=== PATIENT | male | born 1950 | race Caucasian/White ===

== ENCOUNTER 2017-01-25 17:22 | Inpatient (IN) | payer OTHER, MEDICARE ==
[~2017-01-25] VITALS: Ht 170.2 cm; Wt 80.3 kg
[~2017-01-25 17:22] MED LIST: ASPIRIN EC81 M1 PO; ATORVASTATIN CA20 M1 PO; LOSARTAN POTAS100 M1 PO; METFORMIN HCL500 M4 PO; METOPROLOL TART50 M1 PO
--- NOTE | 2017-01-25 17:35 | NUR ---
PT STATES HE STATES HE HAD A STOKE ONE AND HE THINKS HE HAD FOOD POISENING YESTERDAY AND HE HASN'T BEEN ABLE TO URINATE SINCE YESTERDAY IN THE AM.
--- NOTE | 2017-01-25 17:44 | NUR ---
PT TO ROOM 16 IN W/C, CALVIN BARRAZA AT BEDSIDE FOR EVAL
[2017-01-25] MEDS ORDERED: ASPIRIN EC325 M2 PO (18:05)
[2017-01-25] MEDS ORDERED: LEVOTHYROXINE25 MCG PO (18:06)
--- NOTE | 2017-01-25 18:06 | ED AMS/SEIZURE/WEAK/DIZZY ---
History of Present Illness General Chief Complaint: Male Genitourinary Problems Stated Complaint: UNABLE URINATE Source: patient Exam Limitations: no limitations Allergies Coded Allergies: Sulfa (Sulfonamide Antibiotics) (Intermediate, SWEATY 01/08/16) adhesive tape (Intermediate, EATS MY SKIN 01/08/16) latex (RASH 01/08/16) Reconcile Medications Aspirin (Ecotrin*) 325 MG TABLET.DR 1 TAB PO DAILY HEART/BLOOD (Reported) Atorvastatin Calcium 20 MG TABLET 0.5 TAB PO DAILY CHOLESTEROL (Reported) Levothyroxine Sodium 25 MCG TABLET 1 TAB PO DAILY THYROID (Reported) Losartan Potassium 100 MG TABLET 1 TAB PO DAILY HEART (Reported) Metformin HCl (Metformin HCl ER) 500 MG TAB.ER.24H 2 TAB PO BID DIABETES ( Reported) Metoprolol Tartrate 50 MG TABLET 1 TAB PO QPM HEART (Reported) Triage Note: PT STATES HE STATES HE HAD A STOKE ONE AND HE THINKS HE HAD FOOD POISENING YESTERDAY AND HE HASN'T BEEN ABLE TO URINATE SINCE YESTERDAY IN THE AM. Triage Nurses Notes Reviewed? yes Onset: Gradual Duration: constant Timing: recent history Injury Environment: home Severity: moderate Severity Numbers: 5 HPI: Patient is a 66-year-old male with a past medical history of remote CVA with right-sided hemiparesis currently not on anticoagulation, hypothyroidism, hypertension, hyperlipidemia and diabetes who presents emergency room stating that yesterday he was in his normal state of health patient does state that he ate EMPANADAS and fruit juice where later on that evening he had multiple EPISODES OF nonbloody nonbilious emesis. Patient woke up today in his normal state of health, states that the emesis and nausea has resolved however patient became concerned after drinking multiple fluids SINCE yesterday and today that he has not urinated. Patient also presents with was concerned of generalized weakness NOTED TODAY however no acute changes of neurological dysfunction is noted by . Denies any fever chills blurred vision facial droop and slurred speech or unilateral weakness compared to baseline where patient is right-sided hemiparesis from previous stroke. Patient denies any CURRENT nausea vomiting abdominal pain. Patient does have reports of loose watery stool production today no blood no melena noted. Patient does admit to having a previous history remotely of BPH. Patient also had a cholecystectomy performed by surgeon Tomas Ch MD approximately 3 years ago at [facility] Denies any chest pain shortness breath cough arm pain jaw pain palpitations Currently denies any abdominal pain Patient is able to tolerate fluids however he is not tried to tolerate solid food today (VICTORINO HERNANDEZ) Vital Signs & Intake/Output Vital Signs & Intake/Output Vital Signs Date Time Temp Pulse Resp B/P B/P Pulse O2 O2 Flow FiO2 Mean Ox Delivery Rate 01/25 1945 99.6 107 16 122/68 94 Room Air 01/25 1735 97.8 120 18 120/75 Past History Travel History Traveled to [facility] past 21 day No Medical History Any Pertinent Medical History? see below for history Neurological: CVA Cardiovascular: hypertension, hyperlipidemia Respiratory: ANTI TRIPSON DEF. Endocrine: diabetes History of MRSA: No History of VRE: No History of CDIFF: No Surgical History Surgical History: cholecystectomy Psychosocial History Who do you live with Spouse Services at Home None What is your primary language Emir[place] Tobacco Use: Quit >30 days ago ETOH Use: denies use Illicit Drug Use: denies illicit drug use Family History Family History, If Any: SISTER FH: leukemia MOTHER FH: hypertension FH: stroke Hx Contributory? No (VICTORINO HERNANDEZ) Review of Systems Review of Systems Constitutional: Reports: see HPI, weakness. EENTM: Reports: no symptoms. Respiratory: Reports: no symptoms. Cardiovascular: Reports: no symptoms. GI: Reports: see HPI, nausea. Genitourinary: Reports: see HPI. Musculoskeletal: Reports: no symptoms. Skin: Reports: no symptoms. Neurological/Psychological: Reports: no symptoms. Hematologic/Endocrine: Reports: no symptoms. Immunologic/Allergic: Reports: no symptoms. All Other Systems: Reviewed and Negative (VICTORINO HERNANDEZ) Physical Exam Physical Exam General Appearance: no apparent distress, alert, awake, comfortable Head: atraumatic Eyes: Bilateral: normal appearance, PERRL, EOMI. Ears, Nose, Throat: normal pharynx, normal ENT inspection, hearing grossly normal Neck: normal inspection, supple Respiratory: normal breath sounds, chest non-tender Cardiovascular: tachycardia Gastrointestinal: normal bowel sounds, soft, no organomegaly, MILD RUQ PAIN Extremities: normal range of motion Skin: intact, normal color, warm/dry Core Measures ACS in differential dx? No CVA/TIA Diagnosis: No NIH Stroke Scale: Total 1 Severe Sepsis Present: Yes BC x2: Yes Lactic Acid x2: Yes IV ABX Broad Spectrum: Yes NS/LR Started: Yes Septic Shock Present: No Bedside Dysphagia Screen Bedside Swallow Eval Done: Yes Result of Evaluation: Pass (CHRISTI SIMPSON,VICTORINO) Progress Differential Diagnosis: arrythmia, anemia, benign positional vertigo, CVA/stroke , dehydration, drug intoxication, encephalitis, electrolyte imbalance, GI bleed, hypoglycemia, hypoxia, intracranial Hem., intracranial mass/tumor, labrynthitis, meningitis, Meniere's disease, migraine JOSEPH, pneumonia, postural hypotension, presyncope, post-traumatic vertigo, sepsis, seizure disorder, subarachnoid Hem., UTI/pyelo, vertebrobasilar insuff, CHOLANGITIS, UTI, SEPSIS Diagnostic Imaging: Viewed by Me: CT Scan. Initial ED EKG: SINUS TACHYCARDIA, 111 BPM Comments: PATIENT: VICTORINO COPELAND PRESENT AGE: 66 PATIENT ACCOUNT NO: [id number] : 52 LOCATION: [facility] ORDERING PHYSICIAN: VICTORINO SIMPSON SERVICE DATE: 01/25/17 EXAM TYPE: CAT - CT HEAD WO IV CONTRAST EXAMINATION: CT HEAD WITHOUT CONTRAST CLINICAL INFORMATION: History of stroke with right-sided hemiparesis. Weakness. COMPARISON: Noncontrast head CT 10/29/2012. TECHNIQUE: Contiguous axial imaging was performed from the skull base to vertex without intravenous administration of contrast. DLP: 794 mGy-cm FINDINGS: Motion abnormality degrades image quality and limits evaluation of the brain parenchyma, notably the middle cranial fossa as well as the posterior fossa. No acute intracranial abnormality is identified. There is no acute intracranial hemorrhage, mass or mass effect or large abnormal extra-axial fluid collections. The density within the dural venous sinuses is within normal limits. The ventricles are normal in size, without hydrocephalus. There are no focal areas of hypoattenuation within a vascular distribution to suggest acute transcortical ischemia. Areas of hypoattenuation within the periventricular and deep cortical white matter are nonspecific but may reflect sequela of mild to moderate chronic microvascular ischemia. Additionally, there are chronic appearing lacunar infarcts within the left mello radiata as well as within the left basal ganglia. There is a focal region of hypoattenuation along the left external capsule measuring 0.6 x 1.9 cm, likely corresponding to a region of remote infarct. The basilar cisterns are patent. No acute calvarial abnormality is identified. Soft tissues appear unremarkable. The imaged paranasal sinuses and mastoid air cells are well aerated. IMPRESSION: Diffuse motion abnormality degrades image quality and slightly limits evaluation of the brain, notably the middle cranial and posterior cranial fossae. There is no acute intracranial abnormality. There are chronic appearing infarcts within the left basal ganglia as well as within the left mello radiata. Areas of hypoattenuation within the deep cortical white matter as well as within the periventricular white matter are nonspecific but may reflect sequela of chronic microvascular ischemia. DICTATED BY: SANTIAGO CRESPO MD DATE/TIME DICTATED:01/25/171832 PATIENT: VICTORINO COPELAND PRESENT AGE: 66 PATIENT ACCOUNT NO: [id number] : 52 LOCATION: [facility] ORDERING PHYSICIAN: VICTORINO SIMPSON SERVICE DATE: 01/25/17 EXAM TYPE: CAT - CT ABD & PELVIS W/O IV CONTRAS EXAMINATION: CT ABDOMEN AND PELVIS WITHOUT CONTRAST CLINICAL INFORMATION: Difficulty urinating. COMPARISON: Chest CT from 01/29/2016. Abdominal MRI from 10/06/2013. TECHNIQUE: Contiguous axial thin section helical images of the abdomen and pelvis were performed without oral or IV contrast. The data set was reformatted in the coronal and sagittal planes and reviewed on an independent workstation. DLP: 390 mGy-cm. FINDINGS: Manifestations of emphysema are identified within both lung bases. There is also bronchiectasis. The visualized portions of the heart are unremarkable. The liver is of normal size and attenuation without focal lesions nor intrahepatic biliary ductal dilation. The patient is status post cholecystectomy. Surgical clips are identified. The spleen, pancreas, adrenal glands are unremarkable. Both kidneys are of normal size and attenuation without hydronephrosis or nephrolithiasis. There is no abdominal free fluid. There is neither mesenteric nor retroperitoneal lymphadenopathy. Normal unopacified loops of small and large bowel are identified. There is no pelvic free fluid. A Da Silva catheter is in place. The urinary bladder is otherwise unremarkable. There is nonspecific fat stranding identified about the rectum without demonstrable wall thickening. There is neither pelvic nor inguinal lymphadenopathy. Bone windows: Neither sclerotic nor lytic bone lesions are identified. IMPRESSION: Neither hydronephrosis nor nephrolithiasis. Nearly empty urinary bladder with a Da Silva catheter in place. Nonspecific mild fat stranding identified within the pelvis about the rectum without wall thickening. Manifestations of emphysema again identified within the visualized lung bases. DICTATED BY: BEHZAD LAWLER MD DATE/TIME DICTATED:01/25/17 / 1833 (VICTORINO HERNANDEZ) Plan of Care: Orders Procedure Date/time Status Consistent Carbohydrate 1 01/26 B Active LACTIC ACID 01/25 2242 Active Misc Message 01/25 2023 Active ED Holding Orders 01/25 2023 Active Admit to inpatient 01/25 2023 Active Vital Signs 01/25 2023 Active Code Status 01/25 2023 Active Patient Data 01/26 2012 Active Admit to inpatient 01/25 2002 Active Add-on Test (ER Only) 01/25 194 Active LACTIC ACID 01/25 1942 Active US-LIMITED ABDOMEN 01/25 1915 Active Add-on Test (ER Only) 01/25 1915 Active BLOOD CULTURE 01/25 190 Active PARTIAL THROMBOPLASTIN TIME 01/25 1817 Complete PROTHROMBIN TIME 01/25 1817 Complete LACTIC ACID 01/25 1815 Complete DIRECT BILIRUBIN 01/25 1815 Complete MISTAKE 01/25 1759 Active Telemetry/Plastic Surgeon 01/25 1759 Active Da Silva, Insertion/Removal/Asses 01/25 1759 Active CULTURE,URINE 01/25 175 Active URINALYSIS 01/25 1759 Complete THYROID STIMULATING HORMONE 01/25 1759 Complete TROPONIN LEVEL 01/25 1759 Complete MAGNESIUM 01/25 1759 Complete FREE T4 01/25 1759 Complete COMPREHENSIVE METABOLIC PANEL 01/25 1759 Complete CBC WITHOUT DIFFERENTIAL 01/25 1759 Complete EKG 01/25 1759 Active Current Medications Sig/Kristen Start time Last Medication Dose Stop Time Status Admin Sodium Chloride 1,000 ML BOLUS ONE 01/25 2015 UNVr (Normal Saline 0.9%) 01/25 2114 Metronidazole 500 MG ONCE ONE 01/25 1945 AC (Flagyl) 01/26 2044 N/A 1 UNIT (No Carrier) Sodium Chloride 1,000 ML BOLUS ONE 01/25 1930 AC (Normal Saline 0.9%) 01/25 2029 Ceftriaxone Sodium 1,000 MG ONCE ONE 01/25 1915 CAN (Rocephin) 01/26 1916 Magnesium Sulfate 1 GM ONCE ONE 01/25 1915 AC 01/25 (Mag Sulfate in D5) 01/25 2314 1929 Dextrose/Water 100 ML (D5W) Laboratory Tests 01/25/17 1950: Lactic Acid Pending 01/25/17 181: PT 15.5 H, INR 1.48 H, APTT 37, Urine Color YEL, Urine Clarity HAZY H, Urine pH 5.5, Ur Specific [place] >= 1.030, Urine Protein 30 H, Urine Ketones 15 H, Urine Nitrite NEG, Urine Bilirubin NEG, Urine Urobilinogen 0.2, Ur Leukocyte Esterase MOD H, Ur Microscopic SEDIMENT EXAMINED, Urine RBC 5-10 H, Urine WBC > 75 H, Ur Epithelial Cells FEW, Urine Bacteria MANY H, Urine Hemoglobin MOD H, Urine Glucose NEG 01/25/171814: Anion Gap 22 H, Estimated GFR 38 L, BUN/Creatinine Ratio 13.9, Glucose 172 H, Lactic Acid 9.0 H, Calcium 9.4, Magnesium 0.8 *L, Total Bilirubin 6.5 H, Direct Bilirubin 1.2 H, AST 43, ALT 46, Alkaline Phosphatase 70, Troponin I < 0.01, Total Protein 7.7, Albumin 4.5, Globulin 3.2, Albumin/Globulin Ratio 1.4, TSH 2.600, Free T4 1.12 01/25/171812: CBC w Diff MAN DIFF ORDERED, RBC 4.91, MCV 91.5, MCH 30.4, RDW 14.4, MPV 10.2, Gran % 92.7 H, Lymphocytes % 3.9 L, Monocytes % 3.3, Eosinophils % 0.1, Basophils % 0 L, Absolute Granulocytes 15.7 H, Segmented Neutrophils 77 H, Band Neutrophils 15 H, Absolute Lymphocytes 0.7 L, Lymphocytes 5 L, Monocytes 3, Absolute Monocytes 0.6, Absolute Eosinophils 0, Absolute Basophils 0, Platelet Estimate VERIFIED BY SMEAR, Normocytic RBCs VERIFIED, Normochromic RBCs VERIFIED, PUBS MCHC 33.2, Fld Total RBCs Counted 100 Microbiology 01/25 1950 BLOOD: Blood Culture - RECD 01/25 1935 BLOOD: Blood Culture - RECD 01/25 1817 URINE ROUT: Urine Culture - RECD NIH STOKE SCALE scored a 1 due to mild right-sided facial droop however this is noted to be at baseline per from previous stroke. At this time there are no acute neurological findings and denies any acute neurological dysfunction. also states that patient does have trouble at times finding words when he speaks due to his previous stroke however again she denies any acute neurological dysfunction. Patient currently is resting comfortably at bedside no apparent distress DA SILVA CATHETER PLACED, 500 CC STAW COLORED URINE PRODUCED, CX PENDING Patient on initial examination had mild right upper quadrant pain however patient was afebrile and normotensive. Urine does show concerns of infection however patient did have a leukocytosis and concerns of lactic acidosis and sepsis patient does have mild concerns of cholangitis however liver function test are unremarkable. Patient currently obtaining an ultrasound of the right upper quadrant however on initial CT scan there is no ductal dilation noted IV fluid resuscitation was ordered. IV Rocephin and Flagyl was administered. Discussed disposition plan with Dr. Last who is aware of admission (VICTORINO HERNANDEZ) Departure Departure Disposition: STILL A PATIENT Condition: Fair Clinical Impression Primary Impression: Sepsis Secondary Impressions: Acute kidney failure, Bandemia, Elevated bilirubin, Hypomagnesemia, Lactic acidemia, UTI (urinary tract infection) Referrals: ТАТЬЯНА BILLINGS MD (PCP/Family) Departure Forms: Customer Survey General Discharge Information Admission Note Spoke With: RACHEL JERONIMO MD Documentation of Exam: Documentation of any treatments & extenuating circumstances including Concerns Regarding Discharge (functional status, medication knowledge or non-compliance, living conditions, etc.) that warrant an admission rather than observation: [ Discussed patient with Dr. JERONIMO who agrees with general medicine admission for concerns of sepsis most likely urinary tract infection etiology. Patient requires IV antibiotics, IV fluid resuscitation, repeat labs, urine culture and blood culture currently pending. Patient also has concerns of cholangitis in which ultrasound of right upper quadrant is pending and patient requires gastroenterology consultation.] (VICTORINO HERNANDEZ) PA/STATE ARCHIVIST Co-Sign Statement Statement: ED Attending supervision documentation- [] I saw and evaluated the patient. I have also reviewed all the pertinent lab results and diagnostic results. I agree with the findings and the plan of care as documented in the PA's/STATE ARCHIVIST's documentation. [X] I have reviewed the ED Record and agree with the PA's/STATE ARCHIVIST's documentation. [] Additions or exceptions (if any) to the PAs/STATE ARCHIVIST's note and plan are summarized below: [] (KRISTEN WILL,LIANA Bell) Critical Care Note Critical Care Note Critical Care Time: 30-74 min (VICTORINO HERNANDEZ)
--- NOTE | 2017-01-25 18:20 | NUR ---
LABS SENT PT TO CT
--- NOTE | 2017-01-25 18:30 | NUR ---
20F DA SILVA PLACED PRIOR TO CT SCAN, 450CC CLEAR ORANGE OUT, URINE TRIO SENT. PT DENIED PAIN/PRESSURE PRIOR AND WITH NO COMPLAINTS POST PLACEMENT. RETURNS FROM CT NOW.
--- NOTE | 2017-01-25 18:43 | CT SCAN REPORT ---
EXAMINATION: CT ABDOMEN AND PELVIS WITHOUT CONTRAST CLINICAL INFORMATION: Difficulty urinating. COMPARISON: Chest CT from 01/29/2016. Abdominal MRI from 10/06/2013. TECHNIQUE: Contiguous axial thin section helical images of the abdomen and pelvis were performed without oral or IV contrast. The data set was reformatted in the coronal and sagittal planes and reviewed on an independent workstation. DLP: 390 mGy-cm. FINDINGS: Manifestations of emphysema are identified within both lung bases. There is also bronchiectasis. The visualized portions of the heart are unremarkable. The liver is of normal size and attenuation without focal lesions nor intrahepatic biliary ductal dilation. The patient is status post cholecystectomy. Surgical clips are identified. The spleen, pancreas, adrenal glands are unremarkable. Both kidneys are of normal size and attenuation without hydronephrosis or nephrolithiasis. There is no abdominal free fluid. There is neither mesenteric nor retroperitoneal lymphadenopathy. Normal unopacified loops of small and large bowel are identified. There is no pelvic free fluid. A Faye catheter is in place. The urinary bladder is otherwise unremarkable. There is nonspecific fat stranding identified about the rectum without demonstrable wall thickening. There is neither pelvic nor inguinal lymphadenopathy. Bone windows: Neither sclerotic nor lytic bone lesions are identified. IMPRESSION: Neither hydronephrosis nor nephrolithiasis. Nearly empty urinary bladder with a Faye catheter in place. Nonspecific mild fat stranding identified within the pelvis about the rectum without wall thickening. Manifestations of emphysema again identified within the visualized lung bases.
--- NOTE | 2017-01-25 18:43 | CT SCAN REPORT ---
EXAMINATION: CT HEAD WITHOUT CONTRAST CLINICAL INFORMATION: History of stroke with right-sided hemiparesis. Weakness. COMPARISON: Noncontrast head CT 10/29/2012. TECHNIQUE: Contiguous axial imaging was performed from the skull base to vertex without intravenous administration of contrast. DLP: 794 mGy-cm FINDINGS: Motion abnormality degrades image quality and limits evaluation of the brain parenchyma, notably the middle cranial fossa as well as the posterior fossa. No acute intracranial abnormality is identified. There is no acute intracranial hemorrhage, mass or mass effect or large abnormal extra-axial fluid collections. The density within the dural venous sinuses is within normal limits. The ventricles are normal in size, without hydrocephalus. There are no focal areas of hypoattenuation within a vascular distribution to suggest acute transcortical ischemia. Areas of hypoattenuation within the periventricular and deep cortical white matter are nonspecific but may reflect sequela of mild to moderate chronic microvascular ischemia. Additionally, there are chronic appearing lacunar infarcts within the left mello radiata as well as within the left basal ganglia. There is a focal region of hypoattenuation along the left external capsule measuring 0.6 x 1.9 cm, likely corresponding to a region of remote infarct. The basilar cisterns are patent. No acute calvarial abnormality is identified. Soft tissues appear unremarkable. The imaged paranasal sinuses and mastoid air cells are well aerated. IMPRESSION: Diffuse motion abnormality degrades image quality and slightly limits evaluation of the brain, notably the middle cranial and posterior cranial fossae. There is no acute intracranial abnormality. There are chronic appearing infarcts within the left basal ganglia as well as within the left mello radiata. Areas of hypoattenuation within the deep cortical white matter as well as within the periventricular white matter are nonspecific but may reflect sequela of chronic microvascular ischemia.
[2017-01-25 18:45] LABS: ABSOLUTE BASOPHIL COUNT 0 /CUMM (0.0-0.2); ABSOLUTE EOSINOPHIL COUNT 0 /CUMM (0.0-0.7); ABSOLUTE GRANULOCYTE CT 15.7 /CUMM (1.4-6.5); ABSOLUTE LYMPH COUNT 0.7 /CUMM (1.2-3.4); ABSOLUTE MONOCYTE COUNT 0.6 /CUMM (0.10-0.60); BASOPHIL % 0 % (0.0-2.0); EOSINOPHIL % 0.1 % (0-5); GRANULOCYTE % 92.7 % (42.2-75.2); HEMATOCRIT 44.9 % (42-52); MEAN CORPUSCULAR HGB 30.4 PG (27.0-31.0); MEAN CORPUSCULAR HGB CONC 33.2 G/DL (33.0-37.0); MEAN CORPUSCULAR VOLUME 91.5 FL (80.0-94.0); MEAN PLATELET VOLUME 10.2 FL (7.4-10.4); PLATELET COUNT 142 /CUMM (130-400); RBC DISTRIBUTION WIDTH 14.4 % (11.5-14.5); RED BLOOD CELL CT 4.91 /CUMM (4.70-6.10)
--- NOTE | 2017-01-25 19:14 | NUR ---
CRITICAL TEST RESULTS [id number] VICTORINO COPELAND 66 J[place] TESTS AND RESULTS: MAGNESIUM 0.8 Results received and read back by: HITESH YOUNG Results received date and time: 01/25/171913 The following provider was notified of the results, and read the results back: VICTORINO SIMPSON Notified date and time: 01/25/17 at 1914
--- NOTE | 2017-01-25 19:35 | NUR ---
1ST SET OF BLOOD CULTURES SENT TO LAB.
[2017-01-25 19:37] LABS: PT 15.5 SEC (9.4-12.5); PTT 37 SEC (25-37)
--- NOTE | 2017-01-25 20:00 | NUR ---
ROCEPHIN INFUSING AFTER BLOOD CX DRAWN. MAG INFUSING WITH 2ND LITER NS, PHARMACY CALLED FOR ROMY PT TO US NOW.
--- NOTE | 2017-01-25 20:02 | NUR ---
BLOOD DRAWN- SECOND SET OF CULTURES AND BENITES TUBE SENT TO LAB.
--- NOTE | 2017-01-25 20:28 | History & Physical ---
BRANDI WILL,[facility] [place] 01/25/172027: General Information and HPI MD Statement: I have seen and personally examined VICTORINO WALDEN and documented this H&P. The patient is a 66 year old M who presented with a patient stated chief complaint of inability to urinate Source of Information: patient, family, old records Exam Limitations: no limitations History of Present Illness: Mr. 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 History is provided by patient and his at bedside. Patient went to a food festival yesterday where he ate two empanadas and drank nonalcoholic passion fruit juice. It was a very hot day and he walked around more than usual. Later that day he had the urge to urinate but could not void. He also had the urge to defecate but could not empty his bowels. He only passed gas and 5-6 episodes of liquid bowel movement. After coming back home, he had four episodes of nonbloody nonbilious emesis shortly after eating a watermelon. He started feeling increasingly weak and lethargic and spiked fevers later that night. He woke up every 20 minutes throughout the night to urinate but his attempts to void were unsuccessful. He has dyspnea on exertion secondary to his lung disease at baseline which is unchanged, but had labored breathing throughout the night. He denies significant pain including chest or abdominal pain, changes in eye or skin color, bloody stool or headache. Patient had prostatitis when he was 37. He does not recall any urologic intervention at that time. Patient had a left CVA in October 2012 resulting in right hemiparesis, which has since improved with therapy but he continues to have residual right-sided weakness. He denies history of MA, stent placement, CHF and carotid artery stenosis. He underwent cardiac catheterization three years ago which showed 50% blockage. Allergies/Medications Allergies: Coded Allergies: Sulfa (Sulfonamide Antibiotics) (Intermediate, SWEATY 01/08/16) adhesive tape (Intermediate, EATS MY SKIN 01/08/16) latex (RASH 01/08/16) Home Med list Aspirin (Ecotrin*) 325 MG TABLET.DR 1 TAB PO DAILY HEART/BLOOD (Reported) Atorvastatin Calcium 20 MG TABLET 0.5 TAB PO DAILY CHOLESTEROL (Reported) Levothyroxine Sodium 25 MCG TABLET 1 TAB PO DAILY THYROID (Reported) Losartan Potassium 100 MG TABLET 1 TAB PO DAILY HEART (Reported) Metformin HCl (Metformin HCl ER) 500 MG TAB.ER.24H 2 TAB PO BID DIABETES ( Reported) Metoprolol Tartrate 50 MG TABLET 1 TAB PO QPM HEART (Reported) Past History Travel History Traveled to [place] past 21 day No Medical History Neurological: CVA Cardiovascular: CAD, hypertension, hyperlipidemia Respiratory: spontaneous pneumothorax, lung disease related to alpha-1 antitrypsin deficiency Renal: prostatitis Endocrine: diabetes, hypothyroidism Other Medical Hx: alpha-1 antitrypsin deficiency History of MRSA: No History of VRE: No History of CDIFF: No Surgical History Surgical History: cholecystectomy Past Family/Social History Family History Relations & Conditions if any SISTER FH: leukemia MOTHER FH: CVA (cerebrovascular accident) FH: hypertension BROTHER FH: alpha 1 antitrypsin deficiency FH: COPD (chronic obstructive pulmonary disease) BROTHER FH: CAD (coronary artery disease) FH: MA (myocardial infarction) FATHER, ; Cause: CVA (cerebral vascular accident). FH: CVA (cerebrovascular accident) Psychosocial History Where do you live? Home Who Do You Live With? spouse Services at Home: None Primary Language: Nigerien Smoking Status: Former Smoker (Quit in 2012, 40 Pack-Years) ETOH Use: denies use Illicit Drug Use: denies illicit drug use Functional Ability ADLs Independent: dressing, eating, toileting, bathing. Ambulation: independent IADLs Independent: shopping, housework, finances, food prep, telephone, transportation , medication admin. 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 EENTM: Reports: no symptoms. Cardiovascular: Denies: chest pain. Respiratory: Reports: short of breath (baseline). Denies: cough. GI: Reports: constipation, nausea, vomiting. Denies: abdominal pain, bloody stool. Genitourinary: Reports: see HPI (inability to urinate). Musculoskeletal: Reports: no symptoms. Skin: Reports: no symptoms. Denies: jaundice. Neurological/Psychological: Reports: pre-existing deficit (right-sided weakness 2/2 CVA). Denies: headache. Hematologic/Endocrine: Reports: no symptoms. Immunologic/Allergic: Reports: no symptoms. All Other Systems: Reviewed and Negative Exam & Diagnostic Data Last 24 Hrs of Vital Signs/I&O Vital Signs Date Time Temp Pulse Resp B/P B/P Pulse O2 O2 Flow FiO2 Mean Ox Delivery Rate 01/26 0104 99.1 86 22 110/72 93 Room Air 01/26 0003 99.3 85 18 113/55 94 Room Air 01/25 2239 99.7 107 18 132/76 01/25 2238 99.7 107 18 132/76 95 Room Air 01/25 2132 99.8 109 20 132/65 95 Room Air 01/25 2101 94 01/25 1945 99.6 107 16 122/68 94 Room Air 01/25 1735 97.8 120 18 120/75 Intake & Output 01/26 0800 01/26 0000 01/25 1600 Intake Total 3500 Output Total 950 Balance 2550 Intake, IV 3500 Output, Urine 950 Patient 77.111 kg Weight Weight Reported by Patient Measurement Method Physical Exam General Appearance Alert, Oriented X3, No Acute Distress Skin No Rashes Skin Temp/Moisture Exam: Warm/Dry (Except Feet (Chronic Per Pt)) Sepsis Skin Exam (color): Normal for Ethnicity HEENT Atraumatic, Mucous Membr. moist/pink Neck Supple Lymphatic No Lymphadenopathy Cardiovascular Regular Rate, Normal S1, Normal S2 Lungs Clear to Auscultation Abdomen Soft, No Tenderness, Positive Bowel Sounds, Negative Fragoso's Sign Extremities No Clubbing, No Cyanosis, No Edema Vascular Normal Pulses Sepsis Peripheral Pulse Location: Dorsalis Pedis Sepsis Peripheral Pulse Exam: Normal Sepsis Cap Refill Exam: <2 Sec Rectal Empty Rectal Vault Last 24 Hrs of Labs/Parminder: Laboratory Tests 01/26/17 0218: Lactic Acid Cancelled 01/25/172232: Magnesium 1.1 L 01/25/172232: Lactic Acid 6.9 H 01/25/17 1950: Lactic Acid 8.0 H 01/25/17 1817: PT 15.5 H, INR 1.48 H, APTT 37, Urine Color YEL, Urine Clarity HAZY H, Urine pH 5.5, Ur Specific Penn >= 1.030, Urine Protein 30 H, Urine Ketones 15 H, Urine Nitrite NEG, Urine Bilirubin NEG, Urine Urobilinogen 0.2, Ur Leukocyte Esterase MOD H, Ur Microscopic SEDIMENT EXAMINED, Urine RBC 5-10 H, Urine WBC > 75 H, Ur Epithelial Cells FEW, Urine Bacteria MANY H, Urine Hemoglobin MOD H, Urine Glucose NEG 01/25/171814: Anion Gap 22 H, Estimated GFR 38 L, BUN/Creatinine Ratio 13.9, Glucose 172 H, Lactic Acid 9.0 H, Calcium 9.4, Magnesium 0.8 *L, Total Bilirubin 6.5 H, Direct Bilirubin 1.2 H, AST 43, ALT 46, Alkaline Phosphatase 70, Creatine Kinase 93, Troponin I < 0.01, Total Protein 7.7, Albumin 4.5, Globulin 3.2, Albumin/Globulin Ratio 1.4, TSH 2.600, Free T4 1.12 01/25/171812: CBC w Diff MAN DIFF ORDERED, RBC 4.91, MCV 91.5, MCH 30.4, RDW 14.4, MPV 10.2, Gran % 92.7 H, Lymphocytes % 3.9 L, Monocytes % 3.3, Eosinophils % 0.1, Basophils % 0 L, Absolute Granulocytes 15.7 H, Segmented Neutrophils 77 H, Band Neutrophils 15 H, Absolute Lymphocytes 0.7 L, Lymphocytes 5 L, Monocytes 3, Absolute Monocytes 0.6, Absolute Eosinophils 0, Absolute Basophils 0, Platelet Estimate VERIFIED BY SMEAR, Normocytic RBCs VERIFIED, Normochromic RBCs VERIFIED, PUBS MCHC 33.2, Fld Total RBCs Counted 100 Microbiology 01/25 1950 BLOOD: Blood Culture - RECD 01/25 1935 BLOOD: Blood Culture - RECD 01/25 1817 URINE ROUT: Urine Culture - RECD Diagnostic Data EKG Results Sinus tachycardia HR [address]Tc [address] HEAD W/O IV CONTRAST: Diffuse motion abnormality degrades image quality and slightly limits evaluation of the brain, notably the middle cranial and posterior cranial fossae. There is no acute intracranial abnormality. There are chronic appearing infarcts within the left basal ganglia as well as within the left mello radiata. Areas of hypoattenuation within the deep cortical white matter as well as within the periventricular white matter are nonspecific but may reflect sequela of chronic microvascular ischemia. CT ABDOMEN/PELVIS W/O IV CONTRAST: Neither hydronephrosis nor nephrolithiasis. Nearly empty urinary bladder with a Faye catheter in place. Nonspecific mild fat stranding identified within the pelvis about the rectum without wall thickening. Manifestations of emphysema again identified within the visualized lung bases. RUQ US: Liver of diffuse heterogeneous echogenicity without focal lesions. The appearance is nonspecific, but consistent with fatty infiltration. Neither cholelithiasis nor cholecystitis. Assessment/Plan Assessment: Mr. 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 #Severe sepsis: Met SIRS criteria for sepsis on admission with tachycardia and leukocytosis (WBC count 17 with 15% bands). Although afebrile here, had subjective fevers at home. Qualifies for severe sepsis in the setting of ERIKA and lactic acid of 9.0 on admission. Hemodynamically stable with normal mental status. Most likely source is UTI given presenting symptom of urinary retention and urinalysis positive for leukocyte esterase. Although patient had worsening shortness of breath last night, this is likely secondary to sepsis, with no other evidence such as cough to suggest pneumonia. Although bilirubin is elevated in this patient who is s/p cholecystectomy, biliary source is unlikely given RUQ US with no evidence of cholelithiasis or cholecystitis, negative Fragoso's sign and in the absence of RUQ pain or jaundice. S/p 1 dose of ceftriaxone and Flagyl in the ED and total of 3.5 L bolus of normal saline. * Admit to General Medicine. * Continue gentle hydration with NS @ 150 cc/hr. * Continue ceftriaxone 1 g IV daily. * Check CXR PA/lateral to rule out pneumonia. * Check BCx and UCx. #Hyperbilirubinemia: Total bilirubin 6.5 on admission. Mostly indirect, with direct bilirubin of 1.2. AST/ALT and alkaline phosphatase WNL. RUQ US with diffuse heterogeneous echogenicity without focal lesions, nonspecific in appearance but consistent with fatty infiltration. Likely secondary to suspected liver disease related to alpha-1 antitrypsin deficiency. INR elevated at 1.48 likely secondary to early cirrhosis. * GI consulted for further evaluation and management. #Lactic acid: Lactic acid 9 on admission. Most likely secondary to hypoperfusion in the setting of sepsis and dehydration, and potentially exacerbated by his suspected alpha-1 antitrypsin related liver disease which makes it hard to clear lactic acid. * Trend lactic acid. * Continue gentle hydration with NS @ 150 cc/hr. #ERIKA: Cr 1.8 on admission, increased from baseline of 1.1-1.2. Likely prerenal vs. ATN secondary to sepsis and dehydration from nausea/vomiting. * Avoid nephrotoxic agents. * Gentle hydration with NS @ 150 cc/hr. * Repeat BMP in the AM. * Check CPK and repeat in the AM to evaluate for rhabdomyolysis as patient physically exerted himself prior to onset of symptoms. #Hypomagnesemia: Mg 0.8 on admission. Likely secondary to nausea and vomiting. * 1 mg of IV magnesium and 800 mg of oral magnesium administered. * Continue to monitor Mg frequently and replete as needed. #Non-insulin dependent T2DM: Takes metformin 1000 mg PO BID. * Hold oral hypoglycemic agents while inpatient. * Accu-checks and low dose sliding scale Novolog TIDAC. #HTN: Takes metoprolol 50 mg PO QPM and losartan 100 mg PO daily. * Continue [id number] metoprolol. * Hold losartan. Resume in the AM if BP is stable and creatinine improves. #Hypothyroidism: * Continue [id number] levothyroxine 0.025 mg PO daily AC. #Hyperlipidemia: * Continue uxwvu-om-fejphbbbl aspirin 81 mg PO daily and atorvastatin 10 mg PO daily. Diet: Consistent Carbohydrate 3 DVT PPx: HSQ and ALP CODE: FULL As Ranked By This Provider Problem List: 1. Severe sepsis 2. Hypothyroidism 3. Non-insulin dependent type 2 diabetes mellitus 4. Hypomagnesemia 5. UTI (urinary tract infection) 6. Lactic acidosis 7. High anion gap metabolic acidosis 8. HTN (hypertension) 9. Acute kidney failure 10. Uftmf-1-uqhwpadgwac deficiency Core Measures/Miscellaneous Acute Coronary Syndrome ACS Diagnosis: No Cerebrovascular Accident CVA/TIA Diagnosis: No Congestive Heart Failure CHF Diagnosis: No VTE (View Protocol) VTE Risk Factors: Acute medical illness, Age > 40 [facility] d/t: No contraindications No VTE Pharm Prophylaxis d/t: No contraindications VTE Diagnosis: No VTE Type: NONE VTE Confirmed by (Test): NONE Sepsis (View Protocol) Severe Sepsis Present: Yes BC x2: Yes Lactic Acid x2: Yes IV ABX Broad Spectrum: Yes NS/LR Started: Yes Septic Shock Septic Shock Present: No Miscellaneous Documentation Attending Case Discussed With: RACHEL JERONIMO MD Primary Care Physician: ТАТЬЯНА BILLINGS MD Patient sees these Specialists Unknown Level of Patient Care: General Medicine VICTORINO MOORE 01/25/177: Resident Review Statement Resident Statement: examined this patient, discussed with internal review and audit compliance, agreed with internal review and audit compliance, discussed with family, reviewed images, amended to note Other Findings: This is a 66 years old very plesant gentleman with past medical history of diabetes mellitus, hypertension, hyperlipidemia, alpha-1 antitrypsin deficiency who is presenting with history of painful urination and inability to pass stool for about a day. The patient reports that he was well went out and ate on a food truck after which he observed that he could not open his bowels or pass urine he however continued to pass gas. The patient reports history of fever, nausea and vomiting multiple times about 5 and decreased oral intake which made him to feel very weak. On arrival the patient was afebrile 97.8 tachycardic at 120 bpm respiration of 18 blood pressure 120/75 and saturating 94% on room air Physical examination: Patient not in acute distress a late and oriented to time place and person HEENT: White mucous membranes, jaundice, no distended neck vessels Abdomen: Normal contour moving with respiration no organomegaly no tenderness elicited negative Fragoso's sign Chest: Clear lungs bilaterally Extremities: No cyanosis edema or clubbing Rectal: Normal and no sphincter, normal size prostate no tenderness elicited rectal vault is empty Labs: Leukocytosis 17,000, creatinine 1.8 baseline 1.1, UA positive for leukocyte esterase and WBC 75, deranged liver function total bilirubin of 6.5 direct 1.2 with hypomagnesemia 0.8 Assessment and plan 66 years old gentleman with alpha-1 antitrypsin deficiency diabetes mellitus hypertension and hyperlipidemia presenting with acute presentation of inability to pass urine or stool dysuria fever nausea and vomiting found to have significant leukocytosis lactic acidosis and acute kidney injury picture Problem list Urinary tract infection Hypomagnesemia Acute kidney injury Lactic acidosis Anion gap metabolic acidosis Admitted the patient's to general medicine floor She and has received fluid boluses 3.5 L and will maintain him on normal saline at 150 mL/h Received IV magnesium 1 g, continue with magnesium supplementation magnesium oxide 800 mg Continue to trend lactic acidosis Follow-up blood culture and urine culture results Hold metformin and keep the patient on insulin sliding scale Accu-Cheks before every meal Heparin for DVT prophylaxis Patient is full code Pain pathway RACHEL JERONIMO 01/25/17 2347: Attending MD Review Statement Attending Statement Attending MD Statement: examined this patient, discuss w/resident/PA/PIECE DYE WORKER, agreed w/resident/PA/PIECE DYE WORKER, discussed with family, reviewed EMR data (avail), reviewed images, amended to note Attending Assessment/Plan: CC: unable to urinate, loss of balance PMH: CVA with residual R sided weakness, HTN, HLD, hypothyroidism, DM, Alpha 1 antitrypsin deficiency with secondary lung disease, CAD Patient came to ER with vague complaints. He went to [place] festival yesterday and had 2 EMPANADAS and passion fruit juice. He was walking around, it was hot, and walked more than usual. Then he developed a weird sensation where he had to Urinate but he could not and it was painful. He also had urge for BM but could not go except passing gas. Later on even after going home the same episode repeated the whole night, it was very uncomfortable to urinate without any urine output and he was waking up every 20 mins. He also had 4 to 5 nonbloody vomiting at home after eating watermelon. Then he felt extremely lethargic and developed fever. Patient was still uncomfortable the whole day today and was weak to the extend that he almost fell down and his had to support him. No presyncopal or syncope. He also notices mild respiratory discomfort though out the night but denied and chest pain, abdo pain, headache, blood in stool. He did not notice any change in urine color and sclera discoloration. Patient does not regularly follow up for AAT. Last cardiac cath 3 year back with 50% block. He endorses BAINS secondary to lung disease but denied exertional chest pain or lower extremity edema. Vitals: T max 99.8, pulse 120 upon arrival, R, blood pressure, O2 saturation in acceptable range. On exam: A O 3, cooperative, no acute distress, neck supple, JVD normal, no lymphadenopathy, mucosa dry, residual right-sided weakness, with facial drooping , no new focal neurological deficit, no dependent edema, no obvious skin rashes or inflammation CVS: S1-S2, RRR. RS: Clear to auscultate bilaterally. Abdomen: Soft, NT, ND, bowel sounds present, Fragoso's sign negative. Feet are cold to touch but perfusion and pulses normal. Labs: WBC 7.0, neutrophils 92%, band 15, sodium 133, potassium 4.0, chloride 95, bicarbonate 16, 9 22, BUN 25, creatinine 1.8, glucose 172, lactate 9.0, calcium 9.4, magnesium 0.8, total bilirubin 6.5, direct bilirubin 1.2, AST 43, ALT 46, alkaline phosphatase 70, troponin less than 0.01, INR 1.48 UA positive for ketone, moderate leukocyte esterase, WBC more than 75 CT head: Diffuse motion abnormality degrades image quality and slightly limits evaluation of the brain, notably the middle cranial and posterior cranial fossae. There is no acute intracranial abnormality. There are chronic appearing infarcts within the left basal ganglia as well as within the left mello radiata. Areas of hypoattenuation within the deep cortical white matter as well as within the periventricular white matter are nonspecific but may reflect sequela of chronic microvascular ischemia. CT abdomen and pelvis without IV contrast: Neither hydronephrosis nor nephrolithiasis. Nearly empty urinary bladder with a Faye catheter in place. Nonspecific mild fat stranding identified within the pelvis about the rectum without wall thickening. Manifestations of emphysema again identified within the visualized lung bases. Ultrasound abdomen: Liver of diffuse heterogeneous echogenicity without focal lesions. The appearance is nonspecific, but consistent with fatty infiltration. Neither cholelithiasis nor cholecystitis. A and P 66-year-old male with past medical history significant for CVA, hypertension, diabetes, alpha-1 antitrypsin deficiency with secondary lung bases presented to ER for a 1 day history of difficulty urination, pain while urination, no urine output for 1 day. Patient walked outside in hot whether and had food add foot fair. He had 4-5 episodes of vomiting which were nonbloody. He also noticed some worsening of respiratory symptoms overnight related to his underlying lung disease plus denies any chest pain or cough. He was tachycardic and mild respiratory distress when he came in but improved with hydration. His examination is unremarkable, found to have leukocytosis with bands, anion gap acidosis and lactic acidosis, ketones in urine. UA positive for leukocyte esterase. He put out 400 mL after Faye catheter placement in the ER. It appears that he has sepsis secondary to UTI, no other source of infection identified. Patient had elevated total bilirubin with prominent indirect bilirubin and normal transaminases and alkaline phosphatase. Fragoso's sign is negative. Abdominal imaging is unremarkable. Patient does not appear to have cholangitis as a source of infection. Pneumonia should be ruled out with chest x-ray. Bilirubin probably secondary to alpha-1 antitrypsin deficiency related liver disease, patient does have fatty changes in liver on abdominal imaging, ? Early cirrhosis (mildly elevated INR) , Patient had significant lactic acidosis, lactic acidosis appears secondary to infection in setting of probable liver disease. He has significant hypomagnesemia. CT imaging also mentions nonspecific fat stranding in pelvis, but rectal examination was unremarkable. Patient states that he could not have bowel movements since yesterday but the rectum was empty on rectal exam + Sepsis secondary to UTI + Anion gap metabolic acidosis secondary to Lactic acidosis + Acute kidney injury + Hyperbilirubinemia + Suspected ATT related liver disease + Hypomagnesemia - Admit to general medicine - Continue hydration, initial fluid resuscitation at least 3 L followed by 150 mL per hour as maintenance - Trend lactate - Urine culture, blood culture - Chest x-ray PA lateral view - Replace magnesium - Continue ceftriaxone - GI consult in a.m. for isolated hyperbilirubinemia in setting of ATT - Check CPK level today and tomorrow - Hold metformin, continue sliding scale insulin, resume losartan from tomorrow if blood pressure is stable and kidney function improved, continue aspirin and atorvastatin, levothyroxine and metoprolol - DVT prophylaxis with heparin - Adequate pain control - DNR/DNI
--- NOTE | 2017-01-25 20:35 | NUR ---
CRITICAL TEST RESULTS [id number] VICTORINO COPELAND 66 M TESTS AND RESULTS: 8 Results received and read back by: MICHAEL WESTON Results received date and time: 01/25/172034 The following provider was notified of the results, and read the results back: CALVIN BARRAZA Notified date and time: 01/25/17 at 2034
--- NOTE | 2017-01-25 20:37 | NUR ---
CRITICAL TEST RESULTS [id number] VICTORINO COPELAND 66 M TESTS AND RESULTS: LACTIC 9 Results received and read back by: MICHAEL WESTON Results received date and time: 01/25/172003 The following provider was notified of the results, and read the results back: CALVIN BARRAZA Notified date and time: 01/25/17 at 2004
--- NOTE | 2017-01-25 20:41 | ULTRASOUND REPORT ---
EXAMINATION: ABDOMINAL ULTRASOUND LIMITED CLINICAL INFORMATION: Elevated bilirubin. COMPARISON: Same day abdominal and pelvic CT. TECHNIQUE: Real-time imaging of the right upper quadrant abdominal viscera. FINDINGS: PANCREAS: The visualized pancreatic head and body are normal in appearance. The remainder of the pancreas is obscured from visualization by the overlying bowel gas. LIVER: The liver is of normal size and diffuse heterogeneous echogenicity without focal lesions nor intrahepatic biliary ductal dilation. GALLBLADDER: The patient is status post cholecystectomy. COMMON BILE DUCT: Normal in caliber measuring 0.4 cm in diameter. RIGHT KIDNEY: Normal. No hydronephrosis. No renal calculi or focal parenchymal lesions. The kidney measures 11.1 cm in maximum dimension. FREE FLUID: None. IMPRESSION: Liver of diffuse heterogeneous echogenicity without focal lesions. The appearance is nonspecific, but consistent with fatty infiltration. Neither cholelithiasis nor cholecystitis.
--- NOTE | 2017-01-25 21:00 | NUR ---
DR LOO AT BEDSIDE FOR ADMISSION. PT WITH NO COMPLAINTS, DA SILVA DRAINING WELL, PT ALERT AND AFEBRILE. 3RD LITER NS INFUSING WITH FLAGYL.
--- NOTE | 2017-01-25 21:21 | NUR ---
PT GOING TO ROOM [id number]
--- NOTE | 2017-01-25 22:35 | NUR ---
BLOOD DRAWN AND SENT TO LAB. DELMIS ADKINS.
--- NOTE | 2017-01-25 23:17 | NUR ---
CALL TO 2NB, EMILIE HER UPDATED ON PT'S CONDITION AND REPEAT LABS.
--- NOTE | 2017-01-25 23:40 | NUR ---
PT TO AND FROM XRAY
--- NOTE | 2017-01-25 23:49 | Admission Certification ---
Admission Certification Certification Statement - As attending physician, I certify that at the time of - admission, based on clinical presentation, severity of - symptoms, need for further diagnostic testing and - therapeutic interventions, and risk of adverse outcomes - without in-hospital treatment, in my clinical assessment, - this patient requires an acute hospital stay for a minimum - of two nights or longer. I have also considered psychsocial - factors such as support system, advanced age, financial - issues, cognitive issues, and failed out-patient treatments, - past re-admission history, safety of patient, and lack of - compliance as applicable. Specific rationale supporting this admission is: sepsis secondary to UTI
--- NOTE | 2017-01-26 00:19 | NUR ---
EMILIE HER UPDATED WITH NEW VITALS PT RESTING ON STRETCHER.
[2017-01-26 01:04] VITALS: BP 110/72
--- NOTE | 2017-01-26 02:55 | NUR ---
NURSING NOTE: LATE ENTRY: PT ARRIVED TO FLOOR VIA STRETCHER FROM ED @ 0130. PT IS ALERT AND ORIENTED, DROWSY BUT AROUSABLE W/SPEECH AND TOUCH. VSS. PT DENIES SYMPTOMS. PT HAD PRIOR STROKE IN 2012. R SIDED WEAKNESS NOTED. PT IS [place] AND HAS BL HEARING AIDS BUT DID NOT BRING THEM TO HOSPITAL. PT HAS DA SILVA PLACED ON 01/25/17 DRAINING CLEAR, ORANGE IN COLOR. PT IS RECEIVING IV FLUIDS @ 150 ML/HR. MG 1.1, LACTIC ACID 6.5. PTS SKIN INTACT, NO BREAKDOWN NOTED. PER PTS PT IS PASSING GAS AND HAD A SMALL BOWEL MOVEMENT YESTERDAY BUT STATES HE FEELS THE URGE TO DEFECATE BUT IS HAVING DIFFICULTY. MG LEVEL AND LACTIC ACID REDRAWN. AWAITING RESULTS FROM LAB. NO FURTHER ORDERS FROM . PT SHOWN HOW TO USE CALL LIGHT SYSTEM. INFORMATION PACKET GIVEN. WILL CONTINUE TO MONITOR.
--- NOTE | 2017-01-26 03:26 | NUR ---
NURSING NOTE: LATE ENTRY. PT ARRIVED TO FLOOR AT 0130 FROM ED BY STRETCHER. PT IS A&OX3, DROWSY BUT AROUSABLE TO SPEECH AND TOUCH. PT IS ON ROOM AIR, SATS 93%, RR 22. PTS SKIN PALE. PT DENIES SOB. OTHER VSS. PT HAS R SIDED WEAKNESS FROM A PRIOR STROKE IN 2012. FACIAL DROOP ABSENT, SPEECH CLEAR BUT CAN BE GARBLED AT TIMES. PT AMBULATES INDEPENDENTLY AT HOME AND DOES NOT USE A WALKER/CANE, GAIT SLOW, WEAK BUT STEADY. PTS SKIN INTACT. NO BREAKDOWN NOTED. PT HAS DA SILVA THAT WAS PLACED 01/25/17 @ 1759 DRAINING CLEAR, ORANGE IN COLOR. PT IS RECEIVING IV FLUIDS @ 150 ML/HR. MAGNESIUM LEVEL AND LACTIC ACID WERE DRAWN AGAIN. LAST MAG 1.1 AND LAST LACTIC 6.9. PT DENIES PAIN. NO FURTHER ORDERS FROM MD AT THIS TIME. PT SHOWN HOW TO USE CALL LIGHT SYSTEM. FAMILY PRESENT AT BEDSIDE. WILL CONTINUE TO MONITOR.
[2017-01-26 05:54] LABS: ABSOLUTE BASOPHIL COUNT 0 /CUMM (0.0-0.2); ABSOLUTE EOSINOPHIL COUNT 0 /CUMM (0.0-0.7); ABSOLUTE GRANULOCYTE CT 11.6 /CUMM (1.4-6.5); ABSOLUTE LYMPH COUNT 0.7 /CUMM (1.2-3.4); ABSOLUTE MONOCYTE COUNT 0.9 /CUMM (0.10-0.60); BASOPHIL % 0.1 % (0.0-2.0); EOSINOPHIL % 0 % (0-5); MEAN CORPUSCULAR HGB 30.5 PG (27.0-31.0); MEAN CORPUSCULAR HGB CONC 33.9 G/DL (33.0-37.0); MEAN CORPUSCULAR VOLUME 89.9 FL (80.0-94.0); MEAN PLATELET VOLUME 9.8 FL (7.4-10.4); PLATELET COUNT 97 /CUMM (130-400); RBC DISTRIBUTION WIDTH 14.2 % (11.5-14.5); RED BLOOD CELL CT 3.86 /CUMM (4.70-6.10); WHITE BLOOD CELL COUNT 13.2 /CUMM (4.8-10.8)
[2017-01-26 06:06] LABS: HEMATOCRIT 34.8 % (42-52)
--- NOTE | 2017-01-26 06:58 | PN- Housestaff ---
MOISES WILL,FRANK 01/26/17 0657: Subjective Follow-up For: Urinary and fecal hesitancy/retention Prostatitis/UTI Subjective: Patient seen and examined this AM. He has clarified symptoms on initial presentation. According to Quentin, he noticed first this perineal discomfort/ lower abdominal discomfort followed by urinary hesitancy then fecal hesitancy/ inability to pass urine/stool. These are the symptoms that prompting him to present for evaluation. Patient had prostatic exam today and noted tenderness on palpation of the prostate, concerning for prostatitis. Thus, urology consult with Dr. Bam MD was placed. GI consult still pending for hyperbilirubinemia in the setting of alpha-1 antitrypsin deficiency. Review of Systems Constitutional: Denies: chills, fever, malaise. EENTM: Denies: blurred vision, visual changes, hearing changes, nasal congestion. Cardiovascular: Denies: chest pain, palpitations. Respiratory: Denies: cough, short of breath. Gastrointestinal: Reports: see HPI. Denies: nausea, vomiting. Genitourinary: Reports: hesitation, pain (Perineal). Musculoskeletal: Denies: back pain, joint pain. Skin: Denies: lesions, rash. Neurological/Psychological: Denies: confusion, headache, numbness. Hematologic/Endocrine: Denies: bruising, bleeding. Immunologic/Allergic: Denies: splenectomy. Objective Last 24 Hrs of Vital Signs/I&O Vital Signs Date Time Temp Pulse Resp B/P B/P Pulse O2 O2 Flow FiO2 Mean Ox Delivery Rate 01/26 0700 98.7 81 22 108/64 91 Room Air 01/26 0158 93 Room Air 01/26 0104 99.1 86 22 110/72 93 Room Air 01/26 0003 99.3 85 18 113/55 94 Room Air 01/25 2239 99.7 107 18 132/76 01/25 2238 99.7 107 18 132/76 95 Room Air 01/25 2132 99.8 109 20 132/65 95 Room Air 01/25 2101 94 01/25 1945 99.6 107 16 122/68 94 Room Air 01/25 1735 97.8 120 18 120/75 Intake & Output 01/26 1600 01/26 0800 01/26 0000 Intake Total 870 3500 Output Total 400 950 Balance 470 2550 Intake, IV 750 3500 Intake, Oral 120 Output, Urine 400 950 Patient 178 lb 170 lb Weight Weight Reported by Patient Reported by Patient Measurement Method Physical Exam General Appearance: Alert, Oriented X3, Cooperative, No Acute Distress Skin: No Rashes, No Significant Lesion Skin Temp/Moisture Exam: Warm/Dry HEENT: Atraumatic, PERRLA, EOMI, Mucous Membr. moist/pink Neck: Supple, No JVD, No thryomegaly Lymphatic: Cervical nl Cardiovascular: Regular Rate, Normal S1, Normal S2, No Murmurs Lungs: Clear to Auscultation, Normal Air Movement Abdomen: Normal Bowel Sounds, Soft, No Tenderness, No Masses Neurological: Normal Speech, Normal Tone Extremities: No Clubbing, No Cyanosis, No Edema, No Tenderness/Swelling Vascular: Pulses Symmetrical Rectal + prostatic tenderness on prostate exam Current Medications: Current Medications Sig/Kristen Start time Last Medication Dose Route Stop Time Status Admin Acetaminophen 650 MG Q6P PRN 01/26 0930 AC PO Aspirin Buffered 325 MG DAILY 01/26 1000 AC 01/26 PO 1037 Atorvastatin Calcium 10 MG 1700 01/26 1700 AC PO Ceftriaxone Sodium 1,000 MG DAILY 01/26 1000 AC 01/26 IV 1037 Ceftriaxone Sodium 0 .STK-MED ONE 01/25 1958 DC .ROUTE Ceftriaxone Sodium 1,000 MG ONCE ONE 01/25 1930 DC 01/25 IV 01/25 Ceftriaxone Sodium 1,000 MG ONCE ONE 01/25 191 CAN IV 01/25 191 Doxazosin Mesylate 1 MG DAILY 01/26 1000 AC 01/26 PO 1037 Finasteride 5 MG DAILY 01/26 1040 AC PO Heparin Sodium 0 .STK-MED ONE 01/25 223 DC (Porcine) .ROUTE Heparin Sodium 5,000 UNIT Q8 01/25 2200 AC 01/26 (Porcine) SC 0500 Ibuprofen 600 MG Q6P PRN 01/26 0930 AC PO Insulin Aspart 0 TIDAC 01/26 0800 AC SC Levothyroxine Sodium 0.025 MG DAILY AC 01/26 0700 AC 01/26 PO 0540 Losartan Potassium 100 MG DAILY 01/26 1000 CAN PO Magnesium Oxide 400 MG ONE ONE 01/26 0415 DC 01/26 PO 01/26 0416 0501 Magnesium Oxide 800 MG ONE ONE 01/25 2200 DC 01/25 PO 01/25 220 2239 Magnesium Sulfate 1 GM Q2H 01/26 0630 DC 01/26 Dextrose/Water 100 ML IV 01/26 1029 0800 Magnesium Sulfate 1 GM ONCE ONE 01/25 1915 [place] 01/25 Dextrose/Water 100 ML IV 01/25 2314 1929 Metoprolol Tartrate 50 MG QPM 01/25 2200 AC 01/25 PO 2239 Metronidazole 500 MG ONCE ONE 01/25 1945 DC 01/25 N/A 1 UNIT IV 01/26 2044 203 Morphine Sulfate 1 MG Q6-PRN PRN 01/26 0930 IV Sodium Chloride 1,000 ML Q8H 01/26 0815 AC 01/26 IV 1037 Sodium Chloride 1,000 ML SEE RATE 01/25 2200 [place] 01/25 IV 2316 Sodium Chloride 1,000 ML BOLUS ONE 01/25 2015 [place] 01/25 IV 01/25 Sodium Chloride 1,000 ML BOLUS ONE 01/25 1930 [place] 01/25 IV 01/25 Sodium Chloride 1,000 ML BOLUS ONE 01/25 1915 [place] 01/25 IV 01/25 2014 195 Sodium Chloride 500 ML BOLUS ONE 01/25 1800 [place] 01/25 IV 01/25 1859 1828 Last 24 Hrs of Lab/Parminder Results Last 24 Hrs of Labs/Mics: Laboratory Tests 01/26/17 0535: Lactic Acid 4.3 H 01/26/17 0535: Anion Gap 14, Estimated GFR > 60, BUN/Creatinine Ratio 18.3, Magnesium 1.1 L, Creatine Kinase 93, CBC w Diff MAN DIFF ORDERED, RBC 3.86 L, MCV 89.9, MCH 30.5 , RDW 14.2, MPV 9.8, Gran % 88.0 H, Lymphocytes % 5.5 L, Monocytes % 6.4, Eosinophils % 0, Basophils % 0.1, Absolute Granulocytes 11.6 H, Segmented Neutrophils 84 H, Band Neutrophils 6 H, Absolute Lymphocytes 0.7 L, Lymphocytes 4 L, Monocytes 6, Absolute Monocytes 0.9 H, Absolute Eosinophils 0 , Absolute Basophils 0, Platelet Estimate DECREASED, Polychromasia 1+, Poikilocytosis 1+, Ovalocytes 1+, PUBS MCHC 33.9, Fld Total RBCs Counted 100 01/26/17 0250: Lactic Acid 5.0 H, Magnesium 1.1 L, Total PSA 6.02 H 01/26/17 0218: Lactic Acid Cancelled 01/25/172232: Magnesium 1.1 L 01/25/172232: Lactic Acid 6.9 H 01/25/171949: Lactic Acid 8.0 H 01/25/171816: PT 15.5 H, INR 1.48 H, APTT 37, Urine Color YEL, Urine Clarity HAZY H, Urine pH 5.5, Ur Specific Micro >= 1.030, Urine Protein 30 H, Urine Ketones 15 H, Urine Nitrite NEG, Urine Bilirubin NEG, Urine Urobilinogen 0.2, Ur Leukocyte Esterase MOD H, Ur Microscopic SEDIMENT EXAMINED, Urine RBC 5-10 H, Urine WBC > 75 H, Ur Epithelial Cells FEW, Urine Bacteria MANY H, Urine Hemoglobin MOD H, Urine Glucose NEG 01/25/171814: Anion Gap 22 H, Estimated GFR 38 L, BUN/Creatinine Ratio 13.9, Glucose 172 H, Lactic Acid 9.0 H, Calcium 9.4, Magnesium 0.8 *L, Total Bilirubin 6.5 H, Direct Bilirubin 1.2 H, AST 43, ALT 46, Alkaline Phosphatase 70, Creatine Kinase 93, Troponin I < 0.01, Total Protein 7.7, Albumin 4.5, Globulin 3.2, Albumin/Globulin Ratio 1.4, TSH 2.600, Free T4 1.12 01/25/171812: CBC w Diff MAN DIFF ORDERED, RBC 4.91, MCV 91.5, MCH 30.4, RDW 14.4, MPV 10.2, Gran % 92.7 H, Lymphocytes % 3.9 L, Monocytes % 3.3, Eosinophils % 0.1, Basophils % 0 L, Absolute Granulocytes 15.7 H, Segmented Neutrophils 77 H, Band Neutrophils 15 H, Absolute Lymphocytes 0.7 L, Lymphocytes 5 L, Monocytes 3, Absolute Monocytes 0.6, Absolute Eosinophils 0, Absolute Basophils 0, Platelet Estimate VERIFIED BY SMEAR, Normocytic RBCs VERIFIED, Normochromic RBCs VERIFIED, PUBS MCHC 33.2, Fld Total RBCs Counted 100 Microbiology 01/25 1950 BLOOD: Blood Culture - RES GRAM NEGATIVE RODS 01/25 1935 BLOOD: Blood Culture - RES GRAM NEGATIVE RODS 01/25 1817 URINE ROUT: Urine Culture - RES GRAM NEGATIVE RODS Orders Radiology Findings: CXR: IMPRESSION: 1. Pulmonary emphysema. 2. Chronic interstitial thickening/fibrosis and bronchiectasis in the lower lobes. Miscellaneous Findings: CT head: IMPRESSION: Diffuse motion abnormality degrades image quality and slightly limits evaluation of the brain, notably the middle cranial and posterior cranial fossae. There is no acute intracranial abnormality. There are chronic appearing infarcts within the left basal ganglia as well as within the left mello radiata. Areas of hypoattenuation within the deep cortical white matter as well as within the periventricular white matter are nonspecific but may reflect sequela of chronic microvascular ischemia. Abdominal/pelvis CT: IMPRESSION: Neither hydronephrosis nor nephrolithiasis. Nearly empty urinary bladder with a Faye catheter in place. Nonspecific mild fat stranding identified within the pelvis about the rectum without wall thickening. Manifestations of emphysema again identified within the visualized lung bases. Abdominal US: IMPRESSION: Liver of diffuse heterogeneous echogenicity without focal lesions. The appearance is nonspecific, but consistent with fatty infiltration. Neither cholelithiasis nor cholecystitis. Assessment/Plan Assessment: Mr. 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 #Severe sepsis: Met SIRS criteria for sepsis on admission with tachycardia and leukocytosis (WBC count 17 with 15% bands). Although afebrile here, had subjective fevers at home. Qualifies for severe sepsis in the setting of ERIKA on CKD. Most likely source is UTI/prostatitis given presenting symptom of urinary retention and urinalysis positive for leukocyte esterase. Although patient had worsening shortness of breath last night, this is likely secondary to sepsis, with no other evidence such as cough to suggest pneumonia. Given 1 dose of ceftriaxone and Flagyl in the ED. * Continue gentle hydration with NS @ 100 cc/hr. * Lactic acid remains elevated, follow up repeat lactic acid at 4 pm (?possibly secondary to metformin acidosis) * Contine ceftriaxone 1 g IV daily pending culture results * Patient had prostatic tenderness on examination suggestive of prostatitis so we will obtain urology consult with Dr. Bam MD * CXR PA/lateral negative for pneumonia. #Hyperbilirubinemia * TBili on admission of 6.5 with DBili elevated to 1.2 * RUQ US showed diffuse heterogenous echogenicity of liver without focal lesions , may be consistent with fatty infiltration (?possibly secondar to alpha-1 antitrypsin def.) * Patient s/p cholecystectomy * GI consult placed, follow up recommendations * Of note, patient also guiac + #ERIKA on CKD: Cr 1.8 on admission, increased from baseline of 1.1-1.2. Likely prerenal vs. ATN secondary to sepsis. * Improving, BUN/cre 22/1.2 today * Continue to avoid nephrotoxic agents * Gentle hydration with NS @ 100 cc/hr. * Repeat BMP in the AM #Hypomagnesemia: Mg 0.8 on admission. * S/P several oral and IV boluses of mag with improvement only to 1.1 * Continue to monitor Mg frequently (next at 4 pm) and replete as needed #Non-insulin dependent T2DM: Takes metformin 1000 mg PO BID. * Hold oral hypoglycemic agents while inpatient. * Accu-checks and sliding scale Novolog TIDAC. #HTN: Takes metoprolol 50 mg PO QPM and losartan 100 mg PO daily. * Continue ofxbs-jp-bxgvkggee metoprolol. * Hold losartan to prevent drop in blood pressure in the setting of sepsis. Resume one renal function and BP have stabilized #Hypothyroidism: * Continue matal-ub-kucbkodcm levothyroxine 0.25 mg PO daily AC. #Hyperlipidemia: * Continue yrbld-bd-qlyfwxjpb aspirin 81 mg PO daily and atorvastatin 10 mg PO daily. Diet: Consistent Carbohydrate 3 DVT PPx: HSQ and ALP CODE: FULL Problem List: 1. Non-insulin dependent type 2 diabetes mellitus 2. Hypothyroidism 3. Hypomagnesemia 4. UTI (urinary tract infection) 5. Elevated bilirubin 6. Lactic acidemia 7. Acute kidney failure 8. Bandemia 9. Sepsis 10. Prostatitis Pain Ratin Pain Location: Perineal discomfort Pain Goal: Pain 4 or less Pain Plan: Tylenol PRN mild pain Ibuprofen PRN moderate pain IV morphine severe pain Tomorrow's Labs & Rationales: CBC (persistent leukocytosis) TUNG WILL,[facility] 01/26/17 1156: Attending MD Review Statement Attending Statement Attending MD Statement: examined this patient, discuss w/resident/PA/FOOD MIXER ASSEMBLER, agreed w/resident/PA/FOOD MIXER ASSEMBLER, discussed with family, reviewed EMR data (avail), discussed with nursing, discussed with case mgmt, reviewed images, amended to note Attending Assessment/Plan: Patient seen and examined, feeling almost the same. Patient is admitted with sepsis secondary to urinary tract infection. Is also possibility of prostatitis. Now his stool is guaiac positive. Vital Signs Date Time Temp Pulse Resp B/P B/P Pulse O2 O2 Flow FiO2 Mean Ox Delivery Rate 01/26 0700 98.7 81 22 108/64 91 Room Air 01/26 0158 93 Room Air 01/26 0104 99.1 86 22 110/72 93 Room Air 01/26 0003 99.3 85 18 113/55 94 Room Air 01/25 2239 99.7 107 18 132/76 / 2238 99.7 107 18 132/76 95 Room Air 01/25 2132 99.8 109 20 132/65 95 Room Air 01/25 2101 94 01/25 1945 99.6 107 16 122/68 94 Room Air 01/25 1735 97.8 120 18 120/75 on exam; aox3, nad. cv; s1,s2, rrr resp; clear abd; soft, mildly tender in lower abd, bs+ ext; no edema. Laboratory Tests 01/26 01/26 01/26 0535 0535 0250 Chemistry Sodium (137 - 145 mmol/L) 134 L Potassium (3.5 - 5.1 mmol/L) 4.0 Chloride (98 - 107 mmol/L) 105 Carbon Dioxide (22 - 30 mmol/L) 16 L Anion Gap (5 - 16) 14 BUN (9 - 20 mg/dL) 22 H Creatinine (0.7 - 1.2 mg/dL) 1.2 Estimated GFR (>60 ml/min) > 60 BUN/Creatinine Ratio (7 - 25 %) 18.3 Lactic Acid (0.7 - 2.1 mmol/L) 4.3 H 5.0 H Magnesium (1.6 - 2.3 mg/dL) 1.1 L 1.1 L Creatine Kinase (55 - 170 U/L) 93 Total PSA (0.00 - 4.00 ng/mL) 6.02 H Hematology CBC w Diff MAN DIFF ORDERED WBC (4.8 - 10.8 /CUMM) 13.2 H RBC (4.70 - 6.10 /CUMM) 3.86 L Hgb (14.0 - 18.0 G/DL) 11.8 L Hct (42 - 52 %) 34.8 L MCV (80.0 - 94.0 FL) 89.9 MCH (27.0 - 31.0 PG) 30.5 RDW (11.5 - 14.5 %) 14.2 Plt Count (130 - 400 /CUMM) 97 L MPV (7.4 - 10.4 FL) 9.8 Gran % (42.2 - 75.2 %) 88.0 H Lymphocytes % (20.5 - 51.1 %) 5.5 L Monocytes % (1.7 - 9.3 %) 6.4 Eosinophils % (0 - 5 %) 0 Basophils % (0.0 - 2.0 %) 0.1 Absolute Granulocytes (1.4 - 6.5 /CUMM) 11.6 H Segmented Neutrophils (42.2 - 75.2 %) 84 H Band Neutrophils (0.0 - 5.0 %) 6 H Absolute Lymphocytes (1.2 - 3.4 /CUMM) 0.7 L Lymphocytes (20.5 - 51.1 %) 4 L Monocytes (1.7 - 9.3 %) 6 Absolute Monocytes (0.10 - 0.60 /CUMM) 0.9 H Absolute Eosinophils (0.0 - 0.7 /CUMM) 0 Absolute Basophils (0.0 - 0.2 /CUMM) 0 Platelet Estimate (ADEQUATE) DECREASED Polychromasia 1+ Poikilocytosis 1+ Ovalocytes 1+ PUBS MCHC (33.0 - 37.0 G/DL) 33.9 Other Body Source Fld Total RBCs Counted (%) 100 01/26 01/25 01/25 01/25 0218 2233 2233 1950 Chemistry Lactic Acid (0.7 - 2.1 mmol/L) Cancelled 6.9 H 8.0 H Magnesium (1.6 - 2.3 mg/dL) 1.1 L 01/25 01/25 1817 1815 Chemistry Sodium (137 - 145 mmol/L) 133 L Potassium (3.5 - 5.1 mmol/L) 4.0 Chloride (98 - 107 mmol/L) 95 L Carbon Dioxide (22 - 30 mmol/L) 16 L Anion Gap (5 - 16) 22 H BUN (9 - 20 mg/dL) 25 H Creatinine (0.7 - 1.2 mg/dL) 1.8 H Estimated GFR (>60 ml/min) 38 L BUN/Creatinine Ratio (7 - 25 %) 13.9 Glucose (65 - 99 mg/dL) 172 H Lactic Acid (0.7 - 2.1 mmol/L) 9.0 H Calcium (8.4 - 10.2 mg/dL) 9.4 Magnesium (1.6 - 2.3 mg/dL) 0.8 *L Total Bilirubin (0.2 - 1.3 mg/dL) 6.5 H Direct Bilirubin (< 0.4 mg/dL) 1.2 H AST (17 - 59 U/L) 43 ALT (21 - 72 U/L) 46 Alkaline Phosphatase (< 127 U/L) 70 Creatine Kinase (55 - 170 U/L) 93 Troponin I (<0.11 ng/ml) < 0.01 Total Protein (6.3 - 8.2 g/dL) 7.7 Albumin (3.5 - 5.0 g/dL) 4.5 Globulin (1.9 - 4.2 gm/dL) 3.2 Albumin/Globulin Ratio (1.1 - 2.2 %) 1.4 TSH (0.270 - 4.200 uIU/mL) 2.600 Free T4 (0.78 - 2.44 ng/dL) 1.12 Coagulation PT (9.4 - 12.5 SEC) 15.5 H INR (0.90 - 1.17) 1.48 H APTT (25 - 37 SEC) 37 Urines Urine Color (YEL,AMB,STR) YEL Urine Clarity (CLEAR) HAZY H Urine pH (5.0 - 8.0) 5.5 Ur Specific Micro (1.001 - 1.035) >= 1.030 Urine Protein (NEG,<30 MG/DL) 30 H Urine Ketones (NEG) 15 H Urine Nitrite (NEG) NEG Urine Bilirubin (NEG) NEG Urine Urobilinogen (0.1 - 1.0 EU/dl) 0.2 Ur Leukocyte Esterase (NEG) MOD H Ur Microscopic SEDIMENT EXAMINED Urine RBC (0 - 5 /HPF) 5-10 H Urine WBC (0 - 2 /HPF) > 75 H Ur Epithelial Cells (NONE,FEW) FEW Urine Bacteria (NEG/NONE) MANY H Urine Hemoglobin (NEG) MOD H Urine Glucose (N MG/DL) NEG 01/25 1813 Hematology CBC w Diff MAN DIFF ORDERED WBC (4.8 - 10.8 /CUMM) 17.0 H RBC (4.70 - 6.10 /CUMM) 4.91 Hgb (14.0 - 18.0 G/DL) 14.9 Hct (42 - 52 %) 44.9 MCV (80.0 - 94.0 FL) 91.5 MCH (27.0 - 31.0 PG) 30.4 RDW (11.5 - 14.5 %) 14.4 Plt Count (130 - 400 /CUMM) 142 MPV (7.4 - 10.4 FL) 10.2 Gran % (42.2 - 75.2 %) 92.7 H Lymphocytes % (20.5 - 51.1 %) 3.9 L Monocytes % (1.7 - 9.3 %) 3.3 Eosinophils % (0 - 5 %) 0.1 Basophils % (0.0 - 2.0 %) 0 L Absolute Granulocytes (1.4 - 6.5 /CUMM) 15.7 H Segmented Neutrophils (42.2 - 75.2 %) 77 H Band Neutrophils (0.0 - 5.0 %) 15 H Absolute Lymphocytes (1.2 - 3.4 /CUMM) 0.7 L Lymphocytes (20.5 - 51.1 %) 5 L Monocytes (1.7 - 9.3 %) 3 Absolute Monocytes (0.10 - 0.60 /CUMM) 0.6 Absolute Eosinophils (0.0 - 0.7 /CUMM) 0 Absolute Basophils (0.0 - 0.2 /CUMM) 0 Platelet Estimate (ADEQUATE) VERIFIED BY SMEAR Normocytic RBCs VERIFIED Normochromic RBCs VERIFIED PUBS MCHC (33.0 - 37.0 G/DL) 33.2 Other Body Source Fld Total RBCs Counted (%) 100 A/P; 66 y/o M with pmh sig for 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 At this point patient is getting treated with IV ceftriaxone. Urine cultures is growing gram-negative rods and he's also bacteremic gram-negative rods. Will check a renal as well as prostate ultrasound. Urology will be consulted. Lactic acidosis is improving with IV hydration. Question is if this is related to sepsis versus the fact that patient is on metformin. His PSA is also slightly high. GI consult will be obtained. Patient stool is guaiac positive. He also has hyperbilirubinemia but he also has history of alpha-1 antitrypsin deficiency. Patient has hypomagnesemia, continue to replete magnesium and recheck the levels in the evening. Agree with adding PPI. DVT px: Patient was on heparin subcutaneous but because of his white positive stool, will hold it for now and reassess it in the morning.
[2017-01-26 07:00] VITALS: BP 108/64; BP 118/68
--- NOTE | 2017-01-26 08:03 | NUR ---
NURSING NOTE: LATE ENTRY. PTS MAGNESIUM LEVEL 1.1. 40 MG PO ORDERED. PER LISA PAZ MD NO MG BOLUS GIVEN BECAUSE PT IS STABLE. PO MG GIVEN PER MD ORDER. MAGNESIUM LEVEL TO BE DRAWN AGAIN AT 0850. WILL CONTINUE TO MONITOR.
--- NOTE | 2017-01-26 08:10 | RADIOLOGY REPORT ---
EXAMINATION: XR CHEST CLINICAL INFORMATION: Shortness of breath COMPARISON: 01/08/2016 TECHNIQUE: 2 views of the chest were obtained. FINDINGS: Chronic pulmonary emphysema. Peribronchial interstitial opacities and bronchiectasis in lower lobes remain similar in appearance compared to 01/08/2016. No superimposed airspace opacification or pleural effusion. Cardiac silhouette is normal in size. Trachea is midline in position. The mediastinal and hilar contours are normal. No acute skeletal findings. IMPRESSION: 1. Pulmonary emphysema. 2. Chronic interstitial thickening/fibrosis and bronchiectasis in the lower lobes.
--- NOTE | 2017-01-26 10:39 | Cons- Urology ---
General Information and HPI Consulting Request Date of Consult: 01/26/17 Requested By: RACHEL JERONIMO MD Reason for Consult: UTI: prostatitis acute Source of Information: patient, old records Allergies/Medications Allergies: Coded Allergies: Sulfa (Sulfonamide Antibiotics) (Intermediate, SWEATY 01/08/16) adhesive tape (Intermediate, EATS MY SKIN 01/08/16) latex (RASH 01/08/16) Home Med List: Aspirin (Ecotrin*) 325 MG TABLET.DR 1 TAB PO DAILY HEART/BLOOD (Reported) Atorvastatin Calcium 20 MG TABLET 0.5 TAB PO DAILY CHOLESTEROL (Reported) Levothyroxine Sodium 25 MCG TABLET 1 TAB PO DAILY THYROID (Reported) Losartan Potassium 100 MG TABLET 1 TAB PO DAILY HEART (Reported) Metformin HCl (Metformin HCl ER) 500 MG TAB.ER.24H 2 TAB PO BID DIABETES ( Reported) Metoprolol Tartrate 50 MG TABLET 1 TAB PO QPM HEART (Reported) Current Medications: Current Medications Sig/Kristen Start time Last Medication Dose Route Stop Time Status Admin Acetaminophen 650 MG Q6P PRN 01/26 0930 AC PO Aspirin Buffered 325 MG DAILY 01/26 1000 AC PO Atorvastatin Calcium 10 MG 1700 01/26 1700 AC PO Ceftriaxone Sodium 1,000 MG DAILY 01/26 1000 AC IV Ceftriaxone Sodium 0 .STK-MED ONE 01/25 1958 DC .ROUTE Ceftriaxone Sodium 1,000 MG ONCE ONE 01/25 193 DC 01/25 IV 01/25 Ceftriaxone Sodium 1,000 MG ONCE ONE 01/25 1915 CAN IV 01/25 191 Doxazosin Mesylate 1 MG DAILY 01/26 1000 AC PO Heparin Sodium 0 .STK-MED ONE 01/25 2230 DC (Porcine) .ROUTE Heparin Sodium 5,000 UNIT Q8 01/25 2200 AC 01/26 (Porcine) SC 0500 Ibuprofen 600 MG Q6P PRN 01/26 0930 AC PO Insulin Aspart 0 TIDAC 01/26 0800 AC SC Levothyroxine Sodium 0.025 MG DAILY AC 01/26 0700 AC 01/26 PO 0540 Losartan Potassium 100 MG DAILY 01/26 1000 CAN PO Magnesium Oxide 400 MG ONE ONE 01/26 0415 DC 01/26 PO 01/26 0416 0501 Magnesium Oxide 800 MG ONE ONE 01/25 2200 DC 01/25 PO 01/25 2201 2239 Magnesium Sulfate 1 GM Q2H 01/26 0630 DC 01/26 Dextrose/Water 100 ML IV 01/26 1029 0800 Magnesium Sulfate 1 GM ONCE ONE 01/25 1915 DC 01/25 Dextrose/Water 100 ML IV 01/25 2314 1929 Metoprolol Tartrate 50 MG QPM 01/25 2200 AC / PO 2239 Metronidazole 500 MG ONCE ONE 01/25 1945 DC 01/25 N/A 1 UNIT IV 01/25 Morphine Sulfate 1 MG Q6-PRN PRN 01/26 0930 AC IV Sodium Chloride 1,000 ML Q8H 01/26 0815 AC IV Sodium Chloride 1,000 ML SEE RATE 01/25 2200 DC 01/25 IV 2316 Sodium Chloride 1,000 ML BOLUS ONE 01/25 2015 DC 01/25 IV 01/25 Sodium Chloride 1,000 ML BOLUS ONE 01/25 1930 DC 01/25 IV 01/25 Sodium Chloride 1,000 ML BOLUS ONE 01/25 1915 DC 01/25 IV 01/25 2014 195 Sodium Chloride 500 ML BOLUS ONE 01/25 1800 DC 01/25 IV 01/25 1859 1828 Past History Medical History Blood Transfusion Hx: No Neurological: CVA Cardiovascular: hypertension, hyperlipidemia Respiratory: spontaneous pneumothorax Renal: prostatitis Endocrine: diabetes, hypothyroidism Other Medical Hx: alpha-1 antitrypsin deficiency Surgical History Pertinent Surgical History: cholecystectomy Family History Relations & Conditions If Any: SISTER FH: leukemia MOTHER FH: CVA (cerebrovascular accident) FH: hypertension BROTHER FH: alpha 1 antitrypsin deficiency FH: COPD (chronic obstructive pulmonary disease) BROTHER FH: CAD (coronary artery disease) FH: DC (myocardial infarction) FATHER, ; Cause: CVA (cerebral vascular accident). FH: CVA (cerebrovascular accident) Psychosocial History Where Do You Live? Home Who Do You Live With? spouse Services at Home: None Primary Language: Japanese Smoking Status: Former Smoker (Quit in 2012) ETOH Use: denies use Illicit Drug Use: denies illicit drug use Functional Ability ADLs Independent: dressing, eating, toileting, bathing. Ambulation: independent Employment History Employment: Retired Profession/Employer: [employer] Exam & Diagnostic Data Vital Signs and I&O Vital Signs Date Time Temp Pulse Resp B/P B/P Pulse O2 O2 Flow FiO2 Mean Ox Delivery Rate 01/26 0700 98.7 81 22 108/64 91 Room Air 01/26 0158 93 Room Air 01/26 0104 99.1 86 22 110/72 93 Room Air 01/26 0003 99.3 85 18 113/55 94 Room Air 01/25 2239 99.7 107 18 132/76 01/25 2238 99.7 107 18 132/76 95 Room Air 01/25 2132 99.8 109 20 132/65 95 Room Air 01/25 2101 94 01/25 1945 99.6 107 16 122/68 94 Room Air 01/25 1735 97.8 120 18 120/75 Intake & Output 01/26 1600 01/26 0800 01/26 0000 01/25 1600 01/25 0800 01/25 0000 Intake Total 870 3500 Output Total 400 950 Balance 470 2550 Intake, IV 750 3500 Intake, Oral 120 Output, Urine 400 950 Patient 178 lb 170 lb Weight Weight Reported by Patient Reported by Patient Measurement Method Last 24 Hours of Labs: Laboratory Tests 01/26 01/26 01/26 0535 0535 0250 Chemistry Sodium (137 - 145 mmol/L) 134 L Potassium (3.5 - 5.1 mmol/L) 4.0 Chloride (98 - 107 mmol/L) 105 Carbon Dioxide (22 - 30 mmol/L) 16 L Anion Gap (5 - 16) 14 BUN (9 - 20 mg/dL) 22 H Creatinine (0.7 - 1.2 mg/dL) 1.2 Estimated GFR (>60 ml/min) > 60 BUN/Creatinine Ratio (7 - 25 %) 18.3 Lactic Acid (0.7 - 2.1 mmol/L) 4.3 H 5.0 H Magnesium (1.6 - 2.3 mg/dL) 1.1 L 1.1 L Creatine Kinase (55 - 170 U/L) 93 Total PSA (0.00 - 4.00 ng/mL) 6.02 H Hematology CBC w Diff MAN DIFF ORDERED WBC (4.8 - 10.8 /CUMM) 13.2 H RBC (4.70 - 6.10 /CUMM) 3.86 L Hgb (14.0 - 18.0 G/DL) 11.8 L Hct (42 - 52 %) 34.8 L MCV (80.0 - 94.0 FL) 89.9 MCH (27.0 - 31.0 PG) 30.5 RDW (11.5 - 14.5 %) 14.2 Plt Count (130 - 400 /CUMM) 97 L MPV (7.4 - 10.4 FL) 9.8 Gran % (42.2 - 75.2 %) 88.0 H Lymphocytes % (20.5 - 51.1 %) 5.5 L Monocytes % (1.7 - 9.3 %) 6.4 Eosinophils % (0 - 5 %) 0 Basophils % (0.0 - 2.0 %) 0.1 Absolute Granulocytes (1.4 - 6.5 /CUMM) 11.6 H Segmented Neutrophils (42.2 - 75.2 %) 84 H Band Neutrophils (0.0 - 5.0 %) 6 H Absolute Lymphocytes (1.2 - 3.4 /CUMM) 0.7 L Lymphocytes (20.5 - 51.1 %) 4 L Monocytes (1.7 - 9.3 %) 6 Absolute Monocytes (0.10 - 0.60 /CUMM) 0.9 H Absolute Eosinophils (0.0 - 0.7 /CUMM) 0 Absolute Basophils (0.0 - 0.2 /CUMM) 0 Platelet Estimate (ADEQUATE) DECREASED Polychromasia 1+ Poikilocytosis 1+ Ovalocytes 1+ PUBS MCHC (33.0 - 37.0 G/DL) 33.9 Other Body Source Fld Total RBCs Counted (%) 100 01/26 01/25 01/25 01/25 0218 2233 2233 1950 Chemistry Lactic Acid (0.7 - 2.1 mmol/L) Cancelled 6.9 H 8.0 H Magnesium (1.6 - 2.3 mg/dL) 1.1 L 01/25 01/25 1817 1815 Chemistry Sodium (137 - 145 mmol/L) 133 L Potassium (3.5 - 5.1 mmol/L) 4.0 Chloride (98 - 107 mmol/L) 95 L Carbon Dioxide (22 - 30 mmol/L) 16 L Anion Gap (5 - 16) 22 H BUN (9 - 20 mg/dL) 25 H Creatinine (0.7 - 1.2 mg/dL) 1.8 H Estimated GFR (>60 ml/min) 38 L BUN/Creatinine Ratio (7 - 25 %) 13.9 Glucose (65 - 99 mg/dL) 172 H Lactic Acid (0.7 - 2.1 mmol/L) 9.0 H Calcium (8.4 - 10.2 mg/dL) 9.4 Magnesium (1.6 - 2.3 mg/dL) 0.8 *L Total Bilirubin (0.2 - 1.3 mg/dL) 6.5 H Direct Bilirubin (< 0.4 mg/dL) 1.2 H AST (17 - 59 U/L) 43 ALT (21 - 72 U/L) 46 Alkaline Phosphatase (< 127 U/L) 70 Creatine Kinase (55 - 170 U/L) 93 Troponin I (<0.11 ng/ml) < 0.01 Total Protein (6.3 - 8.2 g/dL) 7.7 Albumin (3.5 - 5.0 g/dL) 4.5 Globulin (1.9 - 4.2 gm/dL) 3.2 Albumin/Globulin Ratio (1.1 - 2.2 %) 1.4 TSH (0.270 - 4.200 uIU/mL) 2.600 Free T4 (0.78 - 2.44 ng/dL) 1.12 Coagulation PT (9.4 - 12.5 SEC) 15.5 H INR (0.90 - 1.17) 1.48 H APTT (25 - 37 SEC) 37 Urines Urine Color (YEL,AMB,STR) YEL Urine Clarity (CLEAR) HAZY H Urine pH (5.0 - 8.0) 5.5 Ur Specific Sims (1.001 - 1.035) >= 1.030 Urine Protein (NEG,<30 MG/DL) 30 H Urine Ketones (NEG) 15 H Urine Nitrite (NEG) NEG Urine Bilirubin (NEG) NEG Urine Urobilinogen (0.1 - 1.0 EU/dl) 0.2 Ur Leukocyte Esterase (NEG) MOD H Ur Microscopic SEDIMENT EXAMINED Urine RBC (0 - 5 /HPF) 5-10 H Urine WBC (0 - 2 /HPF) > 75 H Ur Epithelial Cells (NONE,FEW) FEW Urine Bacteria (NEG/NONE) MANY H Urine Hemoglobin (NEG) MOD H Urine Glucose (N MG/DL) NEG 01/25 1813 Hematology CBC w Diff MAN DIFF ORDERED WBC (4.8 - 10.8 /CUMM) 17.0 H RBC (4.70 - 6.10 /CUMM) 4.91 Hgb (14.0 - 18.0 G/DL) 14.9 Hct (42 - 52 %) 44.9 MCV (80.0 - 94.0 FL) 91.5 MCH (27.0 - 31.0 PG) 30.4 RDW (11.5 - 14.5 %) 14.4 Plt Count (130 - 400 /CUMM) 142 MPV (7.4 - 10.4 FL) 10.2 Gran % (42.2 - 75.2 %) 92.7 H Lymphocytes % (20.5 - 51.1 %) 3.9 L Monocytes % (1.7 - 9.3 %) 3.3 Eosinophils % (0 - 5 %) 0.1 Basophils % (0.0 - 2.0 %) 0 L Absolute Granulocytes (1.4 - 6.5 /CUMM) 15.7 H Segmented Neutrophils (42.2 - 75.2 %) 77 H Band Neutrophils (0.0 - 5.0 %) 15 H Absolute Lymphocytes (1.2 - 3.4 /CUMM) 0.7 L Lymphocytes (20.5 - 51.1 %) 5 L Monocytes (1.7 - 9.3 %) 3 Absolute Monocytes (0.10 - 0.60 /CUMM) 0.6 Absolute Eosinophils (0.0 - 0.7 /CUMM) 0 Absolute Basophils (0.0 - 0.2 /CUMM) 0 Platelet Estimate (ADEQUATE) VERIFIED BY SMEAR Normocytic RBCs VERIFIED Normochromic RBCs VERIFIED PUBS MCHC (33.0 - 37.0 G/DL) 33.2 Other Body Source Fld Total RBCs Counted (%) 100 Imaging Results: PATIENT: VICTORINO COPELAND PRESENT AGE: 66 PATIENT ACCOUNT NO: [id number] : 52 LOCATION: [facility] ORDERING PHYSICIAN: VICTORINO SIMPSON SERVICE DATE: 01/25/17 EXAM TYPE: CAT - CT ABD & PELVIS W/O IV CONTRAS EXAMINATION: CT ABDOMEN AND PELVIS WITHOUT CONTRAST CLINICAL INFORMATION: Difficulty urinating. COMPARISON: Chest CT from 01/29/2016. Abdominal MRI from 10/06/2013. TECHNIQUE: Contiguous axial thin section helical images of the abdomen and pelvis were performed without oral or IV contrast. The data set was reformatted in the coronal and sagittal planes and reviewed on an independent workstation. DLP: 390 mGy-cm. FINDINGS: Manifestations of emphysema are identified within both lung bases. There is also bronchiectasis. The visualized portions of the heart are unremarkable. The liver is of normal size and attenuation without focal lesions nor intrahepatic biliary ductal dilation. The patient is status post cholecystectomy. Surgical clips are identified. The spleen, pancreas, adrenal glands are unremarkable. Both kidneys are of normal size and attenuation without hydronephrosis or nephrolithiasis. There is no abdominal free fluid. There is neither mesenteric nor retroperitoneal lymphadenopathy. Normal unopacified loops of small and large bowel are identified. There is no pelvic free fluid. A Faye catheter is in place. The urinary bladder is otherwise unremarkable. There is nonspecific fat stranding identified about the rectum without demonstrable wall thickening. There is neither pelvic nor inguinal lymphadenopathy. Bone windows: Neither sclerotic nor lytic bone lesions are identified. IMPRESSION: Neither hydronephrosis nor nephrolithiasis. Nearly empty urinary bladder with a Faye catheter in place. Nonspecific mild fat stranding identified within the pelvis about the rectum without wall thickening. Manifestations of emphysema again identified within the visualized lung bases. Assessment/Plan Copies To: HILTON SAMPSON MD Consult Acknowledgment - Thank you for your consult request. Attending MD Review Statement Attending Statement Attending MD Statement: examined this patient, discuss w/resident/PA/STENCIL PRINTER
--- NOTE | 2017-01-26 11:20 | NUR ---
NURSING NOTE: PATIENT HAD LOOSE BROWN/GREEN BOWEL MOVEMENT, THIS RN GUAIACED THE STOOL AND SAMPLE RESULT POSITIVE. EXECUTIVE HOUSEKEEPER 133 NOTIFIED. WILL CONTINUE TO MONITOR.
--- NOTE | 2017-01-26 11:28 | NUR ---
NURSING NOTE: PATIENT LEFT FLOOR VIA STRETCHER WITH DISTRIBUTION FOR ULTRASOUND. PATIENT A/OX3, DA SILVA CATHETER IN PLACE. DENIES PAIN AT THIS TIME. WILL AWAIT RETURN.
--- NOTE | 2017-01-26 12:20 | NUR ---
NURSING NOTE: LATE ENTRY: PATIENT RETURNED TO FLOOR. NO CHANGES NOTED. WILL CONTINUE TO MONITOR.
--- NOTE | 2017-01-26 12:30 | NUR ---
NURSING NOTE: PATIENT'S DA SILVA CATHETER CLAMPED AT THIS TIME PER MD ORDER FOR RENAL ULTRASOUND. WILL CONTINUE TO MONITOR.
--- NOTE | 2017-01-26 13:55 | NUR ---
NURSING NOTE: PATIENT LEFT FLOOR VIA STRETCHER WITH DISTRIBUTION WITH DA SILVA CATHETER CLAMPED FOR ULTRASOUND. WILL AWAIT RETURN. A/OX3, NO PAIN NOTED.
--- NOTE | 2017-01-26 14:25 | NUR ---
NURSING NOTE: PATIENT RETURNED TO FLOOR. NO CHANGES NOTED. DA SILVA CATHETER UNCLAMPED.
--- NOTE | 2017-01-26 14:40 | ULTRASOUND REPORT ---
EXAMINATION: US RETROPERITONEAL COMPLETE (RENAL) CLINICAL INFORMATION: Urinary hesitancy. Evaluate for prostatitis. COMPARISON: CT abdomen and pelvis 01/25/2017. Limited abdominal ultrasound 01/25/2017. TECHNIQUE: Real-time imaging of the kidneys and bladder. FINDINGS: RIGHT KIDNEY: 11.0 x 5.3 x 5.1 cm (SAG x AP x TRV). The kidney is normal in size, contour, and echogenicity. Renal cortical thickness is normal. No calculi or focal parenchymal lesions. No hydronephrosis. LEFT KIDNEY: 10.4 x 5.5 x 4.6 cm (SAG x AP x TRV). The kidney is normal in size, contour, and echogenicity. Renal cortical thickness is normal. No calculi or focal parenchymal lesions. No hydronephrosis. BLADDER: The urinary bladder is underdistended, limiting evaluation. An indwelling Faye catheter is present within the bladder. Bladder underdistention limits evaluation for bilateral ureteral jets. Prevoid bladder volume is 40.7 mL. PROSTATE GLAND: The prostate gland measures 3.5 x 3.8 x 4.9 cm. IMPRESSION: 1. Unremarkable appearance of the bilateral kidneys. No appreciable nephrolithiasis or hydronephrosis of either kidney. 2. Limited evaluation of the urinary bladder secondary to bladder underdistention. 3. Limited visualization of the prostate gland secondary to bladder underdistention. The prostate gland measures 3.5 x 3.8 x 4.9 cm. Correlate clinically for signs and symptoms of prostatitis.
[2017-01-26 14:51] VITALS: BP 106/66
--- NOTE | 2017-01-26 18:33 | Cons- Gastroenterology ---
General Information and HPI Consulting Request Date of Consult: 01/26/17 (MD [facility]/GASTROENTEROLOGY) Requested By: RACHEL JERONIMO MD Reason for Consult: Hyperbilirubinemia Source of Information: patient History of Present Illness: 66-year-old male admitted with change in urination, difficulty with defecation, and gram-negative shefali bacteremia. He was diagnosed with chronic lung disease secondary to alpha 1 antitrypsin deficiency a few years ago, by Dr. Landers. The patient is now noted to have hyperbilirubinemia. His only known previous liver issue was in the early , deemed secondary to a sulfa-based antibiotic use to treat prostatitis. He has not been told of abnormal liver enzymes since. He has no history of jaundice or hepatitis. There is very remote cocaine use, no significant alcohol intake, no history of transfusions. He has no easy bleeding or bruising, edema, pruritus. He is status post cholecystectomy (the liver is not described in the operative report). He denies frequent or recurrent abdominal pain, indigestion, problems swallowing, nausea, vomiting; his bowel movements are usually loose, with frequent diarrhea. He has heartburn on a regular basis. He had some red blood in the toilet bowl today, with straining at defecation. His stool has been determined to be Hemoccult positive. Prior to that he had no history of GI bleeding including bright red blood or melena. He had a colonoscopy in the . Family history is negative for GI malignancy. Multiple family members have documented alpha 1 antitrypsin deficiency, including his brother and son. Allergies/Medications Allergies: Coded Allergies: Sulfa (Sulfonamide Antibiotics) (Intermediate, SWEATY 01/08/16) adhesive tape (Intermediate, EATS MY SKIN 01/08/16) latex (RASH 01/08/16) Home Med List: Aspirin (Ecotrin*) 325 MG TABLET.DR 1 TAB PO DAILY HEART/BLOOD (Reported) Atorvastatin Calcium 20 MG TABLET 0.5 TAB PO DAILY CHOLESTEROL (Reported) Levothyroxine Sodium 25 MCG TABLET 1 TAB PO DAILY THYROID (Reported) Losartan Potassium 100 MG TABLET 1 TAB PO DAILY HEART (Reported) Metformin HCl (Metformin HCl ER) 500 MG TAB.ER.24H 2 TAB PO BID DIABETES ( Reported) Metoprolol Tartrate 50 MG TABLET 1 TAB PO QPM HEART (Reported) Current Medications: Current Medications Sig/Kristen Start time Last Medication Dose Route Stop Time Status Admin Acetaminophen 650 MG Q6P PRN 01/26 0930 AC PO Aspirin Buffered 325 MG DAILY 01/26 1000 AC 01/26 PO 1037 Atorvastatin Calcium 10 MG 1700 01/26 1700 AC 01/26 PO 1635 Ceftriaxone Sodium 1,000 MG DAILY 01/26 1000 AC 01/26 IV 1037 Ceftriaxone Sodium 0 .STK-MED ONE 01/25 1958 DC .ROUTE Ceftriaxone Sodium 1,000 MG ONCE ONE 01/25 1930 DC 01/25 IV 01/25 193 195 Ceftriaxone Sodium 1,000 MG ONCE ONE 01/25 1915 CAN IV 01/25 1916 Doxazosin Mesylate 1 MG DAILY 01/26 1000 AC 01/26 PO 1037 Finasteride 5 MG DAILY 01/26 1040 AC 01/26 PO 1434 Heparin Sodium 0 .STK-MED ONE 01/25 2230 DC (Porcine) .ROUTE Heparin Sodium 5,000 UNIT Q8 01/25 2200 DC 01/26 (Porcine) SC 0500 Ibuprofen 600 MG Q6P PRN 01/26 0930 AC PO Insulin Aspart 0 TIDAC 01/26 0800 AC SC Levothyroxine Sodium 0.025 MG DAILY AC 01/26 0700 AC 01/26 PO 0540 Losartan Potassium 100 MG DAILY 01/26 1000 CAN PO Magnesium Oxide 400 MG ONE ONE 01/26 0415 DC 01/26 PO 01/26 0416 0501 Magnesium Oxide 800 MG ONE ONE 01/25 2200 DC 01/25 PO 01/25 2201 2239 Magnesium Sulfate 1 GM Q2H 01/26 0630 DC 01/26 Dextrose/Water 100 ML IV 01/26 1029 1434 Magnesium Sulfate 1 GM ONCE ONE 01/25 1915 DC 01/25 Dextrose/Water 100 ML IV 01/25 2314 1929 Metoprolol Tartrate 50 MG QPM 01/25 2200 AC 01/25 PO 2239 Metronidazole 500 MG ONCE ONE 01/25 1945 DC 01/25 N/A 1 UNIT IV 01/25 2044 2034 Morphine Sulfate 1 MG Q6-PRN PRN 01/26 0930 AC IV Pantoprazole Sodium 40 MG DAILY 01/26 1155 AC 01/26 IV 1434 Patient Medication 1 ED .STK-MED ONE 01/26 1413 DC Teaching ED 01/26 1414 Sodium Chloride 1,000 ML Q8H 01/26 0815 AC 01/26 IV 1037 Sodium Chloride 1,000 ML SEE RATE 01/25 2200 DC / IV 2316 Sodium Chloride 1,000 ML BOLUS ONE 01/25 2015 DC 06/12 IV /12 2113 2051 Sodium Chloride 1,000 ML BOLUS ONE 01/25 1930 DC 06/12 IV 01/25 Sodium Chloride 1,000 ML BOLUS ONE 01/25 1915 DC 06/ IV 01/25 Sodium Chloride 500 ML BOLUS ONE 01/25 1800 DC / IV 01/25 1859 1828 Past History Travel History Traveled to [place] past 21 day No Medical History Blood Transfusion Hx: No Neurological: CVA Cardiovascular: hypertension, hyperlipidemia Respiratory: spontaneous pneumothorax Renal: prostatitis Endocrine: diabetes, hypothyroidism Other Medical Hx: alpha-1 antitrypsin deficiency Surgical History Surgical History: cholecystectomy Family History Relations & Conditions If Any: SISTER FH: leukemia MOTHER FH: CVA (cerebrovascular accident) FH: hypertension BROTHER FH: alpha 1 antitrypsin deficiency FH: COPD (chronic obstructive pulmonary disease) BROTHER FH: CAD (coronary artery disease) FH: DC (myocardial infarction) FATHER, ; Cause: CVA (cerebral vascular accident). FH: CVA (cerebrovascular accident) Psychosocial History Where Do You Live? Home Who Do You Live With? spouse Services at Home: None Primary Language: Kyrgyz Smoking Status: Former Smoker (Quit in 2012) ETOH Use: denies use Illicit Drug Use: denies illicit drug use Functional Ability ADLs Independent: dressing, eating, toileting, bathing. Ambulation: independent Employment History Employment: Retired Profession/Employer: [employer] Review of Systems Review of Systems Constitutional: Reports: malaise. Denies: fever. EENTM: Denies: icterus, epistaxis. Cardiovascular: Denies: chest pain, edema, syncope. Respiratory: Reports: short of breath. Denies: cough, hemoptysis. GI: Reports: see HPI. Genitourinary: Reports: dysuria, hesitation. Musculoskeletal: Denies: muscle stiffness, neck pain. Skin: Denies: jaundice, lesions. Neurological/Psychological: Denies: confusion, headache. Hematologic/Endocrine: Denies: bruising, bleeding. Exam & Diagnostic Data Vital Signs and I&O Vital Signs Date Time Temp Pulse Resp B/P B/P Pulse O2 O2 Flow FiO2 Mean Ox Delivery Rate 01/26 1451 98.1 82 20 106/66 91 Room Air 01/26 0700 98.7 81 22 108/64 91 Room Air 01/26 0158 93 Room Air 01/26 0104 99.1 86 22 110/72 93 Room Air 01/26 0003 99.3 85 18 113/55 94 Room Air 01/25 2239 99.7 107 18 132/76 01/25 2238 99.7 107 18 132/76 95 Room Air 01/25 2132 99.8 109 20 132/65 95 Room Air 01/25 2101 94 01/25 1945 99.6 107 16 122/68 94 Room Air Intake & Output 01/26 1600 01/26 0400 01/25 1600 01/25 0400 01/24 1600 01/24 0400 Intake Total 2495 3500 Output Total 1000 950 Balance 1495 2550 Intake, IV 1675 3500 Intake, Oral 820 Output, Urine 1000 950 Patient 178 lb Weight Weight Reported by Patient Measurement Method Physical Exam: Well-developed well-nourished, in no apparent distress. Slight dysarthria. Normal cognition. Skin normal without rash, lesion, jaundice, or spider telangiectasias/palmar erythema. No adenopathy. Mild scleral icterus. No oropharyngeal lesion. Neck supple without thyromegaly or mass. Heart regular rhythm. Lungs clear. No gynecomastia. No CVAT. Abdomen is soft and nondistended, with normal bowel sounds; no evident ascites; no hepatojugular reflux; no hepatosplenomegaly, mass or tenderness. Extremities without edema; pulses intact. Results Pertinent Lab Results: Laboratory Tests 01/26 01/26 01/26 1630 1258 0535 Chemistry Lactic Acid (0.7 - 2.1 mmol/L) Pending 4.7 H 4.3 H Magnesium Pending 01/26 01/26 01/26 0535 0250 0218 Chemistry Sodium (137 - 145 mmol/L) 134 L Potassium (3.5 - 5.1 mmol/L) 4.0 Chloride (98 - 107 mmol/L) 105 Carbon Dioxide (22 - 30 mmol/L) 16 L Anion Gap (5 - 16) 14 BUN (9 - 20 mg/dL) 22 H Creatinine (0.7 - 1.2 mg/dL) 1.2 Estimated GFR (>60 ml/min) > 60 BUN/Creatinine Ratio (7 - 25 %) 18.3 Lactic Acid (0.7 - 2.1 mmol/L) 5.0 H Cancelled Magnesium (1.6 - 2.3 mg/dL) 1.1 L 1.1 L Creatine Kinase (55 - 170 U/L) 93 Total PSA (0.00 - 4.00 ng/mL) 6.02 H Hematology CBC w Diff MAN DIFF ORDERED WBC (4.8 - 10.8 /CUMM) 13.2 H RBC (4.70 - 6.10 /CUMM) 3.86 L Hgb (14.0 - 18.0 G/DL) 11.8 L Hct (42 - 52 %) 34.8 L MCV (80.0 - 94.0 FL) 89.9 MCH (27.0 - 31.0 PG) 30.5 RDW (11.5 - 14.5 %) 14.2 Plt Count (130 - 400 /CUMM) 97 L MPV (7.4 - 10.4 FL) 9.8 Gran % (42.2 - 75.2 %) 88.0 H Lymphocytes % (20.5 - 51.1 %) 5.5 L Monocytes % (1.7 - 9.3 %) 6.4 Eosinophils % (0 - 5 %) 0 Basophils % (0.0 - 2.0 %) 0.1 Absolute Granulocytes (1.4 - 6.5 /CUMM) 11.6 H Segmented Neutrophils (42.2 - 75.2 %) 84 H Band Neutrophils (0.0 - 5.0 %) 6 H Absolute Lymphocytes (1.2 - 3.4 /CUMM) 0.7 L Lymphocytes (20.5 - 51.1 %) 4 L Monocytes (1.7 - 9.3 %) 6 Absolute Monocytes (0.10 - 0.60 /CUMM) 0.9 H Absolute Eosinophils (0.0 - 0.7 /CUMM) 0 Absolute Basophils (0.0 - 0.2 /CUMM) 0 Platelet Estimate (ADEQUATE) DECREASED Polychromasia 1+ Poikilocytosis 1+ Ovalocytes 1+ PUBS MCHC (33.0 - 37.0 G/DL) 33.9 Other Body Source Fld Total RBCs Counted (%) 100 01/25 01/25 01/25 2233 2233 1950 Chemistry Lactic Acid (0.7 - 2.1 mmol/L) 6.9 H 8.0 H Magnesium (1.6 - 2.3 mg/dL) 1.1 L 01/25 1815 Chemistry Sodium (137 - 145 mmol/L) 133 L Potassium (3.5 - 5.1 mmol/L) 4.0 Chloride (98 - 107 mmol/L) 95 L Carbon Dioxide (22 - 30 mmol/L) 16 L Anion Gap (5 - 16) 22 H BUN (9 - 20 mg/dL) 25 H Creatinine (0.7 - 1.2 mg/dL) 1.8 H Estimated GFR (>60 ml/min) 38 L BUN/Creatinine Ratio (7 - 25 %) 13.9 Glucose (65 - 99 mg/dL) 172 H Lactic Acid (0.7 - 2.1 mmol/L) 9.0 H Calcium (8.4 - 10.2 mg/dL) 9.4 Magnesium (1.6 - 2.3 mg/dL) 0.8 *L Total Bilirubin (0.2 - 1.3 mg/dL) 6.5 H Direct Bilirubin (< 0.4 mg/dL) 1.2 H AST (17 - 59 U/L) 43 ALT (21 - 72 U/L) 46 Alkaline Phosphatase (< 127 U/L) 70 Creatine Kinase (55 - 170 U/L) 93 Troponin I (<0.11 ng/ml) < 0.01 Total Protein (6.3 - 8.2 g/dL) 7.7 Albumin (3.5 - 5.0 g/dL) 4.5 Globulin (1.9 - 4.2 gm/dL) 3.2 Albumin/Globulin Ratio (1.1 - 2.2 %) 1.4 TSH (0.270 - 4.200 uIU/mL) 2.600 Free T4 (0.78 - 2.44 ng/dL) 1.12 Coagulation PT (9.4 - 12.5 SEC) 15.5 H INR (0.90 - 1.17) 1.48 H APTT (25 - 37 SEC) 37 Urines Urine Color (YEL,AMB,STR) YEL Urine Clarity (CLEAR) HAZY H Urine pH (5.0 - 8.0) 5.5 Ur Specific [place] (1.001 - 1.035) >= 1.030 Urine Protein (NEG,<30 MG/DL) 30 H Urine Ketones (NEG) 15 H Urine Nitrite (NEG) NEG Urine Bilirubin (NEG) NEG Urine Urobilinogen (0.1 - 1.0 EU/dl) 0.2 Ur Leukocyte Esterase (NEG) MOD H Ur Microscopic SEDIMENT EXAMINED Urine RBC (0 - 5 /HPF) 5-10 H Urine WBC (0 - 2 /HPF) > 75 H Ur Epithelial Cells (NONE,FEW) FEW Urine Bacteria (NEG/NONE) MANY H Urine Hemoglobin (NEG) MOD H Urine Glucose (N MG/DL) NEG 01/25 1813 Hematology CBC w Diff MAN DIFF ORDERED WBC (4.8 - 10.8 /CUMM) 17.0 H RBC (4.70 - 6.10 /CUMM) 4.91 Hgb (14.0 - 18.0 G/DL) 14.9 Hct (42 - 52 %) 44.9 MCV (80.0 - 94.0 FL) 91.5 MCH (27.0 - 31.0 PG) 30.4 RDW (11.5 - 14.5 %) 14.4 Plt Count (130 - 400 /CUMM) 142 MPV (7.4 - 10.4 FL) 10.2 Gran % (42.2 - 75.2 %) 92.7 H Lymphocytes % (20.5 - 51.1 %) 3.9 L Monocytes % (1.7 - 9.3 %) 3.3 Eosinophils % (0 - 5 %) 0.1 Basophils % (0.0 - 2.0 %) 0 L Absolute Granulocytes (1.4 - 6.5 /CUMM) 15.7 H Segmented Neutrophils (42.2 - 75.2 %) 77 H Band Neutrophils (0.0 - 5.0 %) 15 H Absolute Lymphocytes (1.2 - 3.4 /CUMM) 0.7 L Lymphocytes (20.5 - 51.1 %) 5 L Monocytes (1.7 - 9.3 %) 3 Absolute Monocytes (0.10 - 0.60 /CUMM) 0.6 Absolute Eosinophils (0.0 - 0.7 /CUMM) 0 Absolute Basophils (0.0 - 0.2 /CUMM) 0 Platelet Estimate (ADEQUATE) VERIFIED BY SMEAR Normocytic RBCs VERIFIED Normochromic RBCs VERIFIED PUBS MCHC (33.0 - 37.0 G/DL) 33.2 Other Body Source Fld Total RBCs Counted (%) 100 Imaging/Other Studies: Ultrasound with normal liver, bile ducts CT scan (no contrast) with normal liver, spleen, pancreas; no ascites. Stranding adjacent to rectum. Assessment/Plan Assessment/Recommendations: 1. Hyperbilirubinemia. This is mostly indirect, and likely in the setting of sepsis/bacteremia. There may be underlying liver disease, such as from alpha-1 antitrypsin deficiency, although aminotransferases and alkaline phosphatase are normal. There is no overt evidence of cirrhosis by examination and imaging, although there is new thrombocytopenia (which may just be from the sepsis) and mild coagulopathy. 2. Hematochezia/guaiac positive stool. Possibly secondary to outlet bleeding in the setting of constipation and straining. He may have proctitis. The patient has occasional heartburn but no other chronic or recurrent GI symptoms ( prior to acute symptoms). He takes an aspirin daily, but no other antiplatelet agents, NSAIDs or anticoagulants. He is anemic. Recommendations * Follow-up LFTs daily with treatment of infection * Will need records from Blanca Landers MD as to diagnosis of alpha-1 antitrypsin deficiency, especially genetic evaluation (phenotype/genotype) * Careful monitoring of platelet count; avoid heparin * Administered vitamin K, and follow-up INR * MiraLAX daily * Check iron indices, B12 * Eventual EGD/colonoscopy Copies To: TYE WILL,BLANCA Franco; AWA WILL,ТАТЬЯНА Consult Acknowledgment - Thank you for your consult request.
[2017-01-26 22:23] VITALS: BP 140/80
[2017-01-27 05:57] VITALS: BP 122/86
[2017-01-27 08:01] LABS: ABSOLUTE BASOPHIL COUNT 0 /CUMM (0.0-0.2); ABSOLUTE EOSINOPHIL COUNT 0 /CUMM (0.0-0.7); ABSOLUTE LYMPH COUNT 0.4 /CUMM (1.2-3.4); ABSOLUTE MONOCYTE COUNT 0.4 /CUMM (0.10-0.60); BASOPHIL % 0.2 % (0.0-2.0); EOSINOPHIL % 0.4 % (0-5); GRANULOCYTE % 87.5 % (42.2-75.2); HEMATOCRIT 35.9 % (42-52); MEAN CORPUSCULAR HGB 30.3 PG (27.0-31.0); MEAN CORPUSCULAR HGB CONC 33.5 G/DL (33.0-37.0); MEAN CORPUSCULAR VOLUME 90.6 FL (80.0-94.0); MEAN PLATELET VOLUME 9.9 FL (7.4-10.4); RBC DISTRIBUTION WIDTH 14.8 % (11.5-14.5); RED BLOOD CELL CT 3.96 /CUMM (4.70-6.10)
[2017-01-27 08:30] LABS: PT 12.4 SEC (9.4-12.5)
[2017-01-27 09:48] LABS: WHITE BLOOD CELL COUNT 6.8 /CUMM (4.8-10.8)
[2017-01-27 10:10] LABS: PLATELET COUNT 83 /CUMM (130-400)
--- NOTE | 2017-01-27 11:08 | PN- Housestaff ---
TENNILLE WILL,HEENA 01/27/17 1107: Subjective Follow-up For: Acute prostatitis Subjective: I saw and examined the patient today morning Patient reports feeling better, still unable to eat, fluids running at bedside and Faye catheter in place. He was able to sleep, denies any pain/discomfort in the abdomen. He didn't have any episodes of vomiting after admission. No overnight events. Extensively discussed plan of care with Dr. Kuhn at bedside about discontinuing Faye catheter tomorrow along with voiding trials. Discontinued fluids and started on fluid restriction, encouraged to eat food ( had lunch in the afternoon). Review of Systems Constitutional: Reports: see HPI. Comments: ROS negative except above. Objective Last 24 Hrs of Vital Signs/I&O Vital Signs Date Time Temp Pulse Resp B/P B/P Pulse O2 O2 Flow FiO2 Mean Ox Delivery Rate 01/27 0557 100.0 76 20 122/86 92 01/26 2306 88 140/80 01/26 2223 99.6 88 19 140/80 90 Room Air 01/26 1451 98.1 82 20 106/66 91 Room Air Intake & Output 01/27 1600 01/27 0800 01/27 0000 Intake Total 800 300 Output Total 750 500 Balance 50 -200 Intake, IV 800 300 Number 2 Bowel Movements Output, Urine 750 500 Physical Exam General Appearance: Alert, Oriented X3, Cooperative Skin: No Rashes, No Breakdown HEENT: Atraumatic, PERRLA, EOMI Neck: Supple Cardiovascular: Regular Rate, Normal S1, Normal S2 Lungs: Clear to Auscultation, Normal Air Movement Abdomen: Normal Bowel Sounds, Soft, No Tenderness Neurological: Normal Tone, Sensation Intact, Cranial Nerves 3-12 NL Extremities: No Clubbing, No Cyanosis, No Edema Current Medications: Current Medications Sig/Kristen Start time Last Medication Dose Route Stop Time Status Admin Acetaminophen 650 MG Q6P PRN 01/26 0930 AC PO Aspirin Buffered 325 MG DAILY 01/26 1000 AC 01/27 PO 1054 Atorvastatin Calcium 10 MG 1700 01/26 1700 AC 01/27 PO 1621 Ceftriaxone Sodium 1,000 MG DAILY 01/26 1000 DC 01/26 IV 1037 Ciprofloxacin 400 MG Q12 01/27 1000 AC 01/27 Dextrose/Water 200 ML IV 2114 Doxazosin Mesylate 1 MG DAILY 01/26 1000 AC 01/27 PO 1054 Finasteride 5 MG DAILY 01/26 1040 AC 01/27 PO 1054 Ibuprofen 600 MG Q6P PRN 01/26 0930 AC PO Insulin Aspart 0 TIDAC 01/26 0800 AC SC Levothyroxine Sodium 0.025 MG DAILY AC 01/26 0700 AC 01/27 PO 0633 Losartan Potassium 100 MG DAILY 01/27 1102 AC 01/27 PO 1418 Magnesium Chloride 64 MG BID 01/27 1007 AC 01/27 PO 2114 Metoprolol Tartrate 50 MG QPM 01/25 2200 AC 01/27 PO 2113 Morphine Sulfate 1 MG Q6-PRN PRN 01/26 0930 AC IV Pantoprazole Sodium 40 MG DAILY 01/26 1155 AC 01/27 IV 1045 Polyethylene Glycol 17 GM DAILY 01/26 202 AC 01/26 PO 2306 Sodium Chloride 1,000 ML Q8H 01/26 0815 DC 01/26 IV 2306 Last 24 Hrs of Lab/Parminder Results Last 24 Hrs of Labs/Mics: Laboratory Tests 01/27/17 0655: Anion Gap 10, Estimated GFR > 60, BUN/Creatinine Ratio 21.1, Lactic Acid 1.7, Magnesium 1.5 L, Total Bilirubin 3.4 H, Direct Bilirubin 0.6 H, AST 28, ALT 39, Alkaline Phosphatase 71, Total Protein 5.3 L, Albumin 2.6 L, PT 12.4, INR 1.18 H, CBC w Diff NO MAN DIFF REQ, RBC 3.96 L, MCV 90.6, MCH 30.3, RDW 14.8 H, MPV 9.9, Gran % 87.5 H, Lymphocytes % 6.5 L, Monocytes % 5.4, Eosinophils % 0.4, Basophils % 0.2, Absolute Granulocytes 6.0, Absolute Lymphocytes 0.4 L, Absolute Monocytes 0.4, Absolute Eosinophils 0, Absolute Basophils 0, PUBS MCHC 33.5 Assessment/Plan Assessment: Mr. 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 #Severe sepsis secondary to prostatitis - Resolved. Met SIRS criteria for sepsis on admission with tachycardia and leukocytosis (WBC count 17 with 15% bands). Although afebrile here, had subjective fevers at home. Qualifies for severe sepsis in the setting of ERIKA on CKD. Most likely source is prostatitis given presenting symptom of urinary retention and urinalysis positive for leukocyte esterase. Although patient had worsening shortness of breath last night, this is likely secondary to sepsis, with no other evidence such as cough to suggest pneumonia. Given 1 dose of ceftriaxone and Flagyl in the ED. * Discontinue fluids. * Lactic acid is 1.7 today morning. * We will discontinue Faye tomorrow followed by voiding trials -- in case if patient fails to void we will discharge patient with indwelling Faye, he need to follow-up with Dr. German as outpatient. * Patient had prostatic tenderness on examination suggestive of prostatitis. * Started on ciprofloxacin IV for prostatitis and we will convert to oral tomorrow. * Typically Acute prostatitis requires 4-6 weeks of antibiotics. * Dr. Kuhn consulted --appreciate recommendations * CXR PA/lateral negative for pneumonia. #Hyperbilirubinemia * TBili on admission of 6.5 with DBili elevated to 1.2 * RUQ US showed diffuse heterogenous echogenicity of liver without focal lesions , may be consistent with fatty infiltration (?possibly secondar to alpha-1 antitrypsin def.) * Patient s/p cholecystectomy * GI consult * Trying dropped and records from Dr. Landers's office regarding his alpha-1 antitrypsin deficiency * Guaiac-negative in the morning #ERIKA on CKD: Cr 1.8 on admission, increased from baseline of 1.1-1.2. Likely prerenal vs. ATN secondary to sepsis. * Creatinine is back to normal today - 0.9 * Restarted on losartan 100 mg daily as his blood pressures elevated. #Hypomagnesemia: Mg 0.8 on admission. * S/P several oral and IV boluses of mag with improvement only to 1.1 * Mag today morning is 1.5 - repleted. * Recheck tomorrow #Non-insulin dependent T2DM: Takes metformin 1000 mg PO BID. * Hold oral hypoglycemic agents while inpatient. * Accu-checks and sliding scale Novolog TIDAC. #HTN: Takes metoprolol 50 mg PO QPM and losartan 100 mg PO daily. * Continue [id number] metoprolol. * Resumed losartan #Hypothyroidism: * Continue odzbj-la-tfmhdmkiu levothyroxine 0.25 mg PO daily AC. #Hyperlipidemia: * Continue njosd-jp-ttxbtjexh aspirin 81 mg PO daily and atorvastatin 10 mg PO daily. Diet: Consistent Carbohydrate 3 DVT PPx: HSQ and ALP CODE: FULL Problem List: 1. [id number] deficiency 2. HTN (hypertension) 3. Lactic acidosis 4. Prostatitis 5. Non-insulin dependent type 2 diabetes mellitus 6. Hypothyroidism 7. Hypomagnesemia Pain Ratin Pain Location: abdomen Pain Goal: Pain 4 or less Pain Plan: IV Tylenol Morphine sulfate 1 mg every 6 IV when necessary Ibuprofen 600 mg every 6 when necessary Tomorrow's Labs & Rationales: BEP to monitor sodium levels TUNG WILL,JACQUELINE 01/27/17 1122: Attending MD Review Statement Attending Statement Attending MD Statement: examined this patient, discuss w/resident/PA/ADVERTISING DISPATCH CLERK, agreed w/resident/PA/ADVERTISING DISPATCH CLERK, discussed with family, reviewed EMR data (avail), discussed with nursing, discussed with case mgmt, reviewed images, amended to note Attending Assessment/Plan: Patient seen and examined, claims that he's feeling almost the same. He still has some pain in the lower abdomen. She was seen by urology. They recommended to discontinue the Faye catheter tomorrow morning and give him a voiding trial. Vital Signs Date Time Temp Pulse Resp B/P B/P Pulse O2 O2 Flow FiO2 Mean Ox Delivery Rate 01/27 0557 100.0 76 20 122/86 92 01/26 2306 88 140/80 01/26 2223 99.6 88 19 140/80 90 Room Air 01/26 1451 98.1 82 20 106/66 91 Room Air on exam; aox3, nad. cv; s1,s2, rrr resp; clear abd; soft, mildly tender in lower abd, bs+ ext; no edema. Laboratory Tests 01/27 01/26 01/26 06 2013 1630 Chemistry Sodium (137 - 145 mmol/L) 129 L Potassium (3.5 - 5.1 mmol/L) 3.7 Chloride (98 - 107 mmol/L) 101 Carbon Dioxide (22 - 30 mmol/L) 18 L Anion Gap (5 - 16) 10 BUN (9 - 20 mg/dL) 19 Creatinine (0.7 - 1.2 mg/dL) 0.9 Estimated GFR (>60 ml/min) > 60 BUN/Creatinine Ratio (7 - 25 %) 21.1 Lactic Acid (0.7 - 2.1 mmol/L) 1.7 4.2 H Magnesium (1.6 - 2.3 mg/dL) 1.5 L 2.2 Total Bilirubin (0.2 - 1.3 mg/dL) 3.4 H Cancelled Direct Bilirubin (< 0.4 mg/dL) 0.6 H Cancelled AST (17 - 59 U/L) 28 Cancelled ALT (21 - 72 U/L) 39 Cancelled Alkaline Phosphatase (< 127 U/L) 71 Cancelled Total Protein (6.3 - 8.2 g/dL) 5.3 L Cancelled Albumin (3.5 - 5.0 g/dL) 2.6 L Cancelled Coagulation PT (9.4 - 12.5 SEC) 12.4 INR (0.90 - 1.17) 1.18 H Hematology CBC w Diff NO MAN DIFF REQ WBC (4.8 - 10.8 /CUMM) 6.8 RBC (4.70 - 6.10 /CUMM) 3.96 L Hgb (14.0 - 18.0 G/DL) 12.0 L Hct (42 - 52 %) 35.9 L MCV (80.0 - 94.0 FL) 90.6 MCH (27.0 - 31.0 PG) 30.3 RDW (11.5 - 14.5 %) 14.8 H Plt Count (130 - 400 /CUMM) 83 L MPV (7.4 - 10.4 FL) 9.9 Gran % (42.2 - 75.2 %) 87.5 H Lymphocytes % (20.5 - 51.1 %) 6.5 L Monocytes % (1.7 - 9.3 %) 5.4 Eosinophils % (0 - 5 %) 0.4 Basophils % (0.0 - 2.0 %) 0.2 Absolute Granulocytes (1.4 - 6.5 /CUMM) 6.0 Absolute Lymphocytes (1.2 - 3.4 /CUMM) 0.4 L Absolute Monocytes (0.10 - 0.60 /CUMM) 0.4 Absolute Eosinophils (0.0 - 0.7 /CUMM) 0 Absolute Basophils (0.0 - 0.2 /CUMM) 0 PUBS MCHC (33.0 - 37.0 G/DL) 33.5 01/26 1258 Chemistry Lactic Acid (0.7 - 2.1 mmol/L) 4.7 H A/P: 66 y/o M with pmh sig for 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 Repeat guaiac stool was negative this morning. H&H is stable. Leukocytosis is improving. Patient's antibiotics were switched to Cipro. Urine culture growing Escherichia coli sensitive to Cipro. Blood cultures growing gram-negative rods and final sensitivities are pending. Patient seen by urology. Will give him a voiding trial tomorrow off the Faye catheter is discontinued. If patient is able to void, Faye will remain out. If on the other hand he is unable to void, Faye was reinserted and then he'll be discharged with a Faye catheter with voiding 5 to be done as an outpatient. Ideally speaking the treatment for prostatitis is 4-6 weeks. Please check with Dr. Kuhn about the duration of antibiotic therapy that he would like the patient on. Patient remains thrombocytopenic, no evidence of active bleeding. Heparin subcutaneous was held. Please replete magnesium. Lactate levels have normalized. D/W patient's .
--- NOTE | 2017-01-27 11:13 | NUR ---
LATE ENTRY: PT'S BP ASSESSED FOR AM MEDS- 142/90 WITH PULSE OF 75. SCHEDULED CARDURA GIVEN PER MD ORDER. AT BEDSIDE MENTIONED PT NORMALLY TAKES A FEW BP MEDS. LOSARTAN NOT NOTED ON PT'S CURRENT EMAR. GAME DESIGNER/CREATIVE DIRECTOR HEENA NOTIFIED- PER MD, PT INITIALLY HYPOSTENSIVE AND THAT IS WHY MED WAS HELD. TO RESTART MED NOW. PT IN NO ACUTE DISTRESS. WILL ADMINISTER MED WHEN AVAILABLE. WILL CONT TO MONITOR.
[2017-01-27 15:02] VITALS: BP 138/89
--- NOTE | 2017-01-27 18:55 | NUR ---
PATIENT A&O, VSS, DA SILVA DRAINING CLEAR YELLOW URINE. APPETITE CONTINUES TO BE POOR, CONSUMED 50% DINNER. ON 1200CC FLUID RESTRICTION. C/O BURNING TO RAC-BLOOD DRAW SITE COVERED WITH TAPE (ALLERGY), APPLIED ICE, CONTINUE TO MONITOR.
[2017-01-27 22:00] VITALS: BP 144/91
--- NOTE | 2017-01-27 22:45 | NUR ---
101.0 TEMP AFTER 650MG APAP GIVEN FOR 99.8 LOW GRADE FEVER. MOTRIN 600 MG GIVEN. SWING GRINDER LISA PAZ NOTIFIED. RECHECK AFTER ONE HOUR.
[2017-01-28 07:14] VITALS: BP 124/84
--- NOTE | 2017-01-28 07:25 | PN- Housestaff ---
JANET MATHEWS 01/28/17 0724: Subjective Follow-up For: Severe sepsis secondary to UTI Hyperbilirubinemia Alpha 1 antitrypsin deficiency Subjective: Pt currently stable. He had febrile overnight. Tm 101. No other symptoms. Pt was noted to have turbid discharge around the ferrera catheteter insertion, likely prostatic. BP stable. No abdominal pain. Review of Systems Constitutional: Reports: see HPI. Objective Last 24 Hrs of Vital Signs/I&O Vital Signs Date Time Temp Pulse Resp B/P B/P Pulse O2 O2 Flow FiO2 Mean Ox Delivery Rate 01/28 07 99.8 59 18 124/84 93 Room Air 01/27 2330 98.2 01/27 2224 101.0 01/27 2223 101.0 01/27 2220 101.0 01/27 2200 87 20 144/91 93 Room Air 01/27 2119 99.8 01/27 2113 87 144/92 01/27 1502 98.9 80 20 138/89 93 Room Air 01/27 1418 80 138/84 Intake & Output 01/28 0800 01/28 0000 01/27 1600 Intake Total 820 550 Output Total 750 600 Balance -750 220 550 Intake, IV 220 275 Intake, Oral 600 275 Number 2 Bowel Movements Output, Urine 750 600 Physical Exam General Appearance: No Acute Distress Other Physical Findings: General Appearance: Alert, Oriented X3, Cooperative Skin: No Rashes, No Breakdown HEENT: Atraumatic, PERRLA, EOMI Neck: Supple Cardiovascular: Regular Rate, Normal S1, Normal S2 Lungs: Clear to Auscultation, Normal Air Movement Abdomen: Normal Bowel Sounds, Soft, No Tenderness, ferrera catheter in place. Neurological: Normal Tone, Sensation Intact, Cranial Nerves 3-12 NL Extremities: No Clubbing, No Cyanosis, No Edema Current Medications: Current Medications Sig/Kristen Start time Last Medication Dose Route Stop Time Status Admin Acetaminophen 650 MG .STK-MED ONE 01/28 2120 DC PO 01/27 2121 Acetaminophen 650 MG Q6P PRN 01/26 0930 AC 01/27 PO 211 Aspirin Buffered 325 MG DAILY 01/26 1000 AC 01/27 PO 1054 Atorvastatin Calcium 10 MG 1700 01/26 1700 AC 01/27 PO 1621 Ceftriaxone Sodium 1,000 MG DAILY 01/26 1000 DC 01/26 IV 1037 Ciprofloxacin 400 MG Q12 01/27 1000 AC 01/27 Dextrose/Water 200 ML IV 2114 Doxazosin Mesylate 1 MG DAILY 01/26 1000 AC 01/27 PO 1054 Finasteride 5 MG DAILY 01/26 1040 AC 01/27 PO 1054 Ibuprofen 600 MG Q6P PRN 01/26 0930 AC 01/27 PO 2224 Insulin Aspart 0 TIDAC 01/26 0800 AC SC Levothyroxine Sodium 0.025 MG DAILY AC 01/26 0700 AC 01/28 PO 0554 Losartan Potassium 100 MG DAILY 01/27 1102 AC 01/27 PO 1418 Magnesium Chloride 64 MG BID 01/27 1007 AC 01/27 PO 2114 Metoprolol Tartrate 50 MG QPM 01/25 2200 AC 01/27 PO 2113 Morphine Sulfate 1 MG Q6-PRN PRN 01/26 0930 AC IV Pantoprazole Sodium 40 MG DAILY 01/26 1155 AC 01/27 IV 1045 Polyethylene Glycol 17 GM DAILY 01/26 2024 AC 01/26 PO 2306 Sodium Chloride 1,000 ML Q8H 01/26 0815 DC 01/26 IV 2306 Last 24 Hrs of Lab/Parminder Results Last 24 Hrs of Labs/Mics: Laboratory Tests 01/28/17 0701: Sodium Pending, Potassium Pending, Chloride Pending, Carbon Dioxide Pending, Anion Gap Pending, BUN Pending, Creatinine Pending, BUN/Creatinine Ratio Pending , Magnesium Pending Assessment/Plan Assessment: Mr. 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 #Severe sepsis secondary to prostatitis - Resolved. Met SIRS criteria for sepsis on admission with tachycardia and leukocytosis (WBC count 17 with 15% bands). Although afebrile here, had subjective fevers at home. Qualifies for severe sepsis in the setting of ERIKA on CKD. Most likely source is prostatitis given presenting symptom of urinary retention and urinalysis positive for leukocyte esterase. Although patient had worsening shortness of breath last night, this is likely secondary to sepsis, with no other evidence such as cough to suggest pneumonia. Given 1 dose of ceftriaxone and Flagyl in the ED. * Discontinue fluids. * Lactic acid is 1.7, improved. * Continue to keep Ferrera inserted for now. If the continues to be afebrile, removal of ferrera catheter followed by voiding trials -- in case if patient fails to void we will discharge patient with indwelling Ferrera, he need to follow-up with Dr. German as outpatient. * Patient had prostatic tenderness on examination suggestive of prostatitis. * Started on ciprofloxacin IV for prostatitis and we will convert to oral tomorrow. * Typically Acute prostatitis requires 4-6 weeks of antibiotics. * Dr. Kuhn consulted --appreciate recommendations * CXR PA/lateral negative for pneumonia. #Hyperbilirubinemia * TBili on admission of 6.5 with DBili elevated to 1.2 * RUQ US showed diffuse heterogenous echogenicity of liver without focal lesions , may be consistent with fatty infiltration (?possibly secondar to alpha-1 antitrypsin def.) * Patient s/p cholecystectomy * GI consult * Trying to obtain records from Dr. Landers's office regarding his alpha-1 antitrypsin deficiency * Discontinue ibubrufen. #ERIKA on CKD: Cr 1.8 on admission, increased from baseline of 1.1-1.2. Likely prerenal vs. ATN secondary to sepsis. * Creatinine normal- 0.9 * Restarted on losartan 100 mg daily. #Hypomagnesemia: Mg 0.8 on admission. * S/P several oral and IV boluses of mag with improvement only to 1.1. K low. Repleted. * Recheck tomorrow #Non-insulin dependent T2DM: Takes metformin 1000 mg PO BID. * Hold oral hypoglycemic agents while inpatient. * Accu-checks and sliding scale Novolog TIDAC. #HTN: Takes metoprolol 50 mg PO QPM and losartan 100 mg PO daily. * Continue weriz-fp-rpejzvkjh metoprolol. * Resumed losartan #Hypothyroidism: * Continue vjafv-xt-uadahhigq levothyroxine 0.25 mg PO daily AC. #Hyperlipidemia: * Continue jhfjh-nb-sctvmunzb aspirin 81 mg PO daily and atorvastatin 10 mg PO daily. Diet: Consistent Carbohydrate 3 DVT PPx: HSQ and ALP CODE: FULL Problem List: 1. Non-insulin dependent type 2 diabetes mellitus 2. Zodfa-8-yzwvfzgppnr deficiency 3. HTN (hypertension) 4. Lactic acidosis 5. Prostatitis Pain Ratin Pain Location: none Pain Goal: Pain 4 or less Pain Plan: tylenol prn Tomorrow's Labs & Rationales: cbc, bep, mg. Pt has prostatitis, and has sepeis. Electrolytes abnormal. TUNG WILL,JACQUELINE 01/28/17 1335: Attending MD Review Statement Attending Statement Attending MD Statement: examined this patient, discuss w/resident/PA/OFFSET PRINTER, agreed w/resident/PA/OFFSET PRINTER, discussed with family, discussed with nursing, discussed with case mgmt, reviewed images, amended to note Attending Assessment/Plan: Patient seen and examined, he had a fever spike 101+. There is some discharge coming from his penis. He still has a Ferrera catheter in. Patient otherwise denies any pain. Vital Signs Date Time Temp Pulse Resp B/P B/P Pulse O2 O2 Flow FiO2 Mean Ox Delivery Rate 01/28 1028 72 128/84 01/28 0714 99.8 59 18 124/84 93 Room Air 01/28 0000 93 Room Air 01/27 2330 98.2 01/27 2224 101.0 01/27 2223 101.0 01/27 2220 101.0 01/27 2200 87 20 144/91 93 Room Air 01/27 2119 99.8 01/27 2113 87 144/92 01/27 1502 98.9 80 20 138/89 93 Room Air 01/27 1418 80 138/84 on exam; aox3, nad. cv; s1,s2, rrr resp; clear and; soft, nt, bs+ ext; no edema. 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 Patient has bacteremia with Escherichia coli and urine culture also growing Escherichia coli sensitive to Cipro. Patient still spiking fevers. We obtained repeat blood cultures, urinalysis and urine culture. Chest x-ray does not show any evidence of infiltrate. For now we'll continue the Cipro. Per urology, keep the Ferrera in. If patient continues to spike fever, will consider getting infectious disease. Lactate normalized. Repeat guaiac stool is negative. H&H stable. Sodium improved. At this point I'm going to DC his ibuprofen as he is already on aspirin and with his guaiac stool positive 1, we should not give him any NSAIDS other than his regular ASA. DVt px; ALPS.
--- NOTE | 2017-01-28 11:04 | RADIOLOGY REPORT ---
EXAMINATION: XR PORTABLE CHEST CLINICAL INFORMATION: Unexplained fever. Rule out pneumonia. COMPARISON: 08/04/2017. TECHNIQUE: Portable AP 80 degrees upright view of the chest was obtained. FINDINGS: The heart is not enlarged. Mild linear atelectasis is seen at the left lung base. The lungs demonstrate emphysema and are otherwise clear. No focal osseous abnormality. IMPRESSION: Linear atelectasis is present at the left lung base. No other change. Emphysema.
[2017-01-28 14:29] VITALS: BP 130/70
[2017-01-28 22:02] VITALS: BP 134/80
--- NOTE | 2017-01-29 06:48 | PN- Housestaff ---
FRANK DE LEON MD 01/29/17 0648: Subjective Follow-up For: Urinary and fecal hesitancy/retention Prostatitis Subjective: Patient seen and examined at bedside this AM. He is feeling well without complaints. He had an episode of stool loss this AM on way to the bathroom. He denies fever, chills, chest pain, abdominal pain, nausea, vomiting. Patient has been afebrile without leukocytosis, therefore ferrera catheter will be pulled out and voiding trial initiated. Also, stool for CDiff was sent and found to be negative. Loose stool likely secondary to miralax. Review of Systems Constitutional: Denies: chills, fever. EENTM: Denies: blurred vision, visual changes, hearing changes, nasal congestion. Cardiovascular: Denies: chest pain, palpitations. Respiratory: Denies: hemoptysis, short of breath. Gastrointestinal: Reports: diarrhea. Denies: abdominal pain, melena, nausea, vomiting. Genitourinary: Denies: dysuria, hematuria. Musculoskeletal: Denies: back pain. Skin: Denies: lesions, rash. Neurological/Psychological: Denies: confusion, headache. Hematologic/Endocrine: Denies: bruising, bleeding. Objective Last 24 Hrs of Vital Signs/I&O Vital Signs Date Time Temp Pulse Resp B/P B/P Pulse O2 O2 Flow FiO2 Mean Ox Delivery Rate 01/29 0931 72 122/70 01/29 0653 97.7 78 20 126/78 92 Room Air 01/28 2202 97.3 80 19 134/80 93 01/28 2145 134/80 01/28 1429 98.1 83 20 130/70 94 Room Air Intake & Output 01/29 1600 01/29 0800 01/29 0000 Intake Total 320 Output Total 700 450 Balance -700 -130 Intake, IV 200 Intake, Oral 120 Output, Urine 700 450 Physical Exam General Appearance: Alert, Oriented X3, Cooperative, No Acute Distress Skin: No Rashes, No Significant Lesion HEENT: Atraumatic, PERRLA, EOMI, Mucous Membr. moist/pink Neck: Supple, No JVD Lymphatic: Cervical nl Cardiovascular: Regular Rate, Normal S1, Normal S2 Lungs: Normal Air Movement Abdomen: Normal Bowel Sounds, Soft, No Tenderness Neurological: Normal Speech, Normal Tone Extremities: No Clubbing, No Cyanosis, No Edema Vascular: Pulses Symmetrical Current Medications: Current Medications Sig/Kristen Start time Last Medication Dose Route Stop Time Status Admin Acetaminophen 650 MG Q6P PRN 01/26 0930 AC 01/27 PO 2119 Aspirin Buffered 325 MG DAILY 01/26 1000 AC 01/29 PO 0931 Atorvastatin Calcium 10 MG 1700 01/26 1700 AC 01/28 PO 1824 Bacitracin 1 CELENA DAILY PRN 01/28 0800 AC TOP Ciprofloxacin 400 MG Q12 01/27 1000 AC 01/29 Dextrose/Water 200 ML IV 0931 Doxazosin Mesylate 1 MG DAILY 01/26 1000 AC 01/29 PO 0931 Finasteride 5 MG DAILY 01/26 1040 AC 01/29 PO 0931 Insulin Aspart 0 TIDAC 01/26 0800 AC 01/29 SC 1240 Levothyroxine Sodium 0.025 MG DAILY AC 01/26 0700 AC 01/29 PO 0703 Losartan Potassium 100 MG DAILY 01/27 1102 AC 01/29 PO 0931 Magnesium Chloride 64 MG BID 01/27 1007 AC 01/29 PO 0931 Metoprolol Tartrate 50 MG QPM 01/25 2200 AC 01/28 PO 2145 Morphine Sulfate 1 MG Q6-PRN PRN 01/26 0930 AC IV Pantoprazole Sodium 40 MG DAILY 01/26 1155 AC 01/29 IV 0931 Polyethylene Glycol 17 GM DAILY 01/26 2024 DC 01/26 PO 2306 Potassium Chloride 60 MEQ ONCE ONE 01/29 0845 DC 01/29 PO 01/29 0846 0902 Last 24 Hrs of Lab/Parminder Results Last 24 Hrs of Labs/Mics: Laboratory Tests 01/29/17 0650: Anion Gap 12, Estimated GFR > 60, BUN/Creatinine Ratio 14.4, Total Bilirubin 2.3 H, Direct Bilirubin 0.5 H, AST 60 H, ALT 44, Alkaline Phosphatase 124, Total Protein 5.5 L, Albumin 2.7 L, CBC w Diff NO MAN DIFF REQ, RBC 3.95 L, MCV 88.9, MCH 30.1, RDW 14.4, MPV 9.4, Gran % 78.4 H, Lymphocytes % 7.5 L, Monocytes % 13.1 H, Eosinophils % 1.0, Basophils % 0 L, Absolute Granulocytes 3.2, Absolute Lymphocytes 0.3 L, Absolute Monocytes 0.5, Absolute Eosinophils 0 , Absolute Basophils 0, PUBS MCHC 33.8 Microbiology 01/29 1150 STOOL: Clostridium difficile Toxin A & B - COMP Assessment/Plan Assessment: Mr. 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 #Severe sepsis secondary to prostatitis - Resolved. Met SIRS criteria for sepsis on admission with tachycardia and leukocytosis (WBC count 17 with 15% bands). Although afebrile here, had subjective fevers at home. Qualifies for severe sepsis in the setting of ERIKA on CKD. Most likely source is prostatitis given presenting symptom of urinary retention and urinalysis positive for leukocyte esterase. Although patient had worsening shortness of breath last night, this is likely secondary to sepsis, with no other evidence such as cough to suggest pneumonia. Given 1 dose of ceftriaxone and Flagyl in the ED. * Discontinue ferrera catheter today and proceed with voiding trials, he need to follow-up with Dr. German as outpatient for continued care. * Patient had prostatic tenderness on examination suggestive of prostatitis. * Ciprofloxacin IV for prostatitis switched to PO and patient will complete total of 28 days as an outpatient. * Dr. Kuhn consulted --appreciate recommendations * CXR PA/lateral negative for pneumonia. * Patient stable for discharge as CDiff negative as long as he voids successfully with the ferrera catheter out #Hyperbilirubinemia * TBili on admission of 6.5 with DBili elevated to 1.2 * RUQ US showed diffuse heterogenous echogenicity of liver without focal lesions , may be consistent with fatty infiltration (?possibly secondar to alpha-1 antitrypsin def.) * Patient s/p cholecystectomy * GI consult aprpeciated * Trying to obtain records from Dr. Landers's office regarding his alpha-1 antitrypsin deficiency, still pending * Discontinue ibuprofen. * F/U with GI as an outpatient and PCP should periodically check LFTS #ERIKA on CKD: Cr 1.8 on admission, increased from baseline of 1.1-1.2. Likely prerenal vs. ATN secondary to sepsis. * Creatinine normalized, no further need to trend * Restarted on losartan 100 mg daily. #Hypomagnesemia: Mg 0.8 on admission. * S/P several oral and IV boluses of mag with improvement * PCP will continue to monitor in outpatient setting #Non-insulin dependent T2DM: Takes metformin 1000 mg PO BID. * Hold oral hypoglycemic agents while inpatient. * Accu-checks and sliding scale Novolog TIDAC. #HTN: Takes metoprolol 50 mg PO QPM and losartan 100 mg PO daily. * Continue ulolz-ur-suivopjbl metoprolol. * Resumed losartan #Hypothyroidism: * Continue klwpa-td-doilkjnyf levothyroxine 0.25 mg PO daily AC. #Hyperlipidemia: * Continue inwjs-nw-avxlzsmav aspirin 81 mg PO daily and atorvastatin 10 mg PO daily. Diet: Consistent Carbohydrate 3 DVT PPx: HSQ and ALP CODE: FULL Problem List: 1. Ifytx-4-hficyuwjwce deficiency 2. HTN (hypertension) 3. Lactic acidosis 4. Prostatitis 5. Non-insulin dependent type 2 diabetes mellitus 6. Hypothyroidism Pain Ratin Pain Location: N/A Pain Goal: Remain pain free Pain Plan: Per pain pathway Tomorrow's Labs & Rationales: None. TUNG WILLJACQUELINE 01/29/17 1224: Attending MD Review Statement Attending Statement Attending MD Statement: examined this patient, discuss w/resident/PA/PER DIEM RN, agreed w/resident/PA/PER DIEM RN, reviewed EMR data (avail), discussed with nursing, discussed with case mgmt, reviewed images, amended to note Attending Assessment/Plan: Patient seen and examined, patient's is present at bedside. He had watery diarrhea with accident this morning. He denies any abdominal pain. He remains afebrile and his white count has come down. Vital Signs Date Time Temp Pulse Resp B/P B/P Pulse O2 O2 Flow FiO2 Mean Ox Delivery Rate 01/29 0931 72 122/70 01/29 0653 97.7 78 20 126/78 92 Room Air 01/28 2202 97.3 80 19 134/80 93 01/28 2145 134/80 01/28 1429 98.1 83 20 130/70 94 Room Air on exam; aox3, nad. cv; s1,s2, rrr resp; clear abd; soft, nt, bs+ ext; no edema. Laboratory Tests 01/29 0650 Chemistry Sodium (137 - 145 mmol/L) 129 L Potassium (3.5 - 5.1 mmol/L) 3.4 L Chloride (98 - 107 mmol/L) 98 Carbon Dioxide (22 - 30 mmol/L) 19 L Anion Gap (5 - 16) 12 BUN (9 - 20 mg/dL) 13 Creatinine (0.7 - 1.2 mg/dL) 0.9 Estimated GFR (>60 ml/min) > 60 BUN/Creatinine Ratio (7 - 25 %) 14.4 Total Bilirubin (0.2 - 1.3 mg/dL) 2.3 H Direct Bilirubin (< 0.4 mg/dL) 0.5 H AST (17 - 59 U/L) 60 H ALT (21 - 72 U/L) 44 Alkaline Phosphatase (< 127 U/L) 124 Total Protein (6.3 - 8.2 g/dL) 5.5 L Albumin (3.5 - 5.0 g/dL) 2.7 L Hematology CBC w Diff NO MAN DIFF REQ WBC (4.8 - 10.8 /CUMM) 4.1 L RBC (4.70 - 6.10 /CUMM) 3.95 L Hgb (14.0 - 18.0 G/DL) 11.9 L Hct (42 - 52 %) 35.1 L MCV (80.0 - 94.0 FL) 88.9 MCH (27.0 - 31.0 PG) 30.1 RDW (11.5 - 14.5 %) 14.4 Plt Count (130 - 400 /CUMM) 87 L MPV (7.4 - 10.4 FL) 9.4 Gran % (42.2 - 75.2 %) 78.4 H Lymphocytes % (20.5 - 51.1 %) 7.5 L Monocytes % (1.7 - 9.3 %) 13.1 H Eosinophils % (0 - 5 %) 1.0 Basophils % (0.0 - 2.0 %) 0 L Absolute Granulocytes (1.4 - 6.5 /CUMM) 3.2 Absolute Lymphocytes (1.2 - 3.4 /CUMM) 0.3 L Absolute Monocytes (0.10 - 0.60 /CUMM) 0.5 Absolute Eosinophils (0.0 - 0.7 /CUMM) 0 Absolute Basophils (0.0 - 0.2 /CUMM) 0 PUBS MCHC (33.0 - 37.0 G/DL) 33.8 A/P; 66 y/o M with pmh sig for 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 Patient has bacteremia with Escherichia coli and urine culture also growing Escherichia coli sensitive to Cipro. Patient has developed diarrhea. We'll send the stool to check for C. difficile. His Ferrera catheter was discontinued this morning and we will wait for him to urinate by himself. If this turns out to be C. difficile, patient will likely need to be started on by mouth Flagyl. We'll await for the patient to urinate, if there is any trouble, please call urology. Na is again slightly low but patient symptomatic. H&H and plts remain stable. DVT px; Heqp sq. DC plan is pending Cdiff results and patient voiding. D/W at length at bedside.
[2017-01-29 06:53] VITALS: BP 126/78
--- NOTE | 2017-01-29 08:00 | NUR ---
NURSING NOTE: AROUND 0645 PT WAS FOUND TO HAVE ALTERED CONVERSATIONS WHILE THIS RN AND MST WERE TAKING VITALS AND PASSING MEDS. PT STATES HE GOT OUT OF BED TO USE THE BATHROOM BECAUSE HE COULD NOT FIND HIS CALL BUTTON WHICH HE SAID HAD FELL ON THE FLOOR. PT HAS HISTORY OF STROKE AND THIS RN FELT THE NEED TO ASSESS FOR STROKE SYMPTOMS. PT ASSESSED FOR ORIENTATION AND PASSED AT BASELINE. NO ACUTE CHANGES NOTED. VOCATIONAL REHABILITATION TECHNICIAN FRANK ED LEON MADE AWARE AND IN TO ASSESS PT. BED ALARM IN PLACE. NEEDS WITHIN REACH. REPORT GIVEN TO ONCOMING NURSE.
[2017-01-29 08:03] LABS: ABSOLUTE BASOPHIL COUNT 0 /CUMM (0.0-0.2); ABSOLUTE EOSINOPHIL COUNT 0 /CUMM (0.0-0.7); ABSOLUTE GRANULOCYTE CT 3.2 /CUMM (1.4-6.5); ABSOLUTE LYMPH COUNT 0.3 /CUMM (1.2-3.4); ABSOLUTE MONOCYTE COUNT 0.5 /CUMM (0.10-0.60); BASOPHIL % 0 % (0.0-2.0); GRANULOCYTE % 78.4 % (42.2-75.2); HEMATOCRIT 35.1 % (42-52); MEAN CORPUSCULAR HGB 30.1 PG (27.0-31.0); MEAN CORPUSCULAR HGB CONC 33.8 G/DL (33.0-37.0); MEAN CORPUSCULAR VOLUME 88.9 FL (80.0-94.0); MEAN PLATELET VOLUME 9.4 FL (7.4-10.4); PLATELET COUNT 87 /CUMM (130-400); RBC DISTRIBUTION WIDTH 14.4 % (11.5-14.5); RED BLOOD CELL CT 3.95 /CUMM (4.70-6.10); WHITE BLOOD CELL COUNT 4.1 /CUMM (4.8-10.8)
[2017-01-29] MEDS ORDERED: CIPRO500 M1 PO ×2 (09:00→18:28)
[2017-01-29] MEDS ORDERED: CARDURA1 M1 PO ×2 (09:00→18:28)
[2017-01-29] MEDS ORDERED: FINASTERIDE5 M1 PO ×2 (09:00→18:28)
[2017-01-29] MEDS ORDERED: SLOW-MAG71.5 MG PO ×2 (09:00→18:28)
--- NOTE | 2017-01-29 09:02 | Patient Discharge Instructions ---
Discharge Instructions General Discharge Information You were seen/treated for: Prostatitis Special Instructions: Please follow up with your PCP Dr. Ghazala MD within 7 days of discharge. Please follow up with Dr. Bam MD within 7 days of discharge. He will monitor ferrera catheter and prostatitis. Please follow up with Dr. Shane Ziegler MD within 2 weeks of discharge. Please take all medications as directed. Diet Recommended Diet: Heart Healthy Activity Activity Self Limited: Yes Acute Coronary Syndrome Inclusion Criteria At DC or during hospital stay patient has or had the following: ACS DIAGNOSIS No Discharge Core Measures Meds if any: Prescribed or Continued at Discharge Meds if any: NOT Prescribed or Continued at Discharge Congestive Heart Failure Inclusion Criteria At DC or during hospital stay patient has or had the following: CHF DIAGNOSIS No Discharge Core Measures Meds if any: Prescribed or Continued at Discharge Meds if any: NOT Prescribed or Continued at Discharge Cerebrovascular accident Inclusion Criteria At DC or during hospital stay patient has or had the following: CVA/TIA Diagnosis No Discharge Core Measures Meds if any: Prescribed or Continued at Discharge Meds if any: NOT Prescribed or Continued at Discharge Venous thromboembolism Inclusion Criteria VTE Diagnosis No VTE Type NONE VTE Confirmed by (Test) NONE Discharge Core Measures - Per Current guidelines, there needs to be overlap - treatment for the first 5 days of Warfarin therapy. - If discharged on Warfarin prior to 5 days of - overlap therapy, the patient will need to be - assessed for post discharge needs including - *Post discharge parental anticoagulation - *Warfarin and/or parental anticoagulation education - *Follow up date to check INR post discharge At least 5 days overlap therapy as Inpatient No Meds if any: Prescribed or Continued at Discharge Note: Overlap Therapy is Warfarin and Anticoagulant Meds if any: NOT Prescribed or Continued at Discharge
--- NOTE | 2017-01-29 10:00 | NUR ---
1000 DA SILVA REMOVED PER MD ORDER. 300ML CLEAR YELLOW URINE OBTAINED. PATIENT IS DUE TO VOID BY 18:00 TODAY
[2017-01-29 14:35] VITALS: BP 120/64
--- NOTE | 2017-01-29 16:19 | NUR ---
[address] RUBY S/P DA SILVA REMOVAL. BLADDER SCAN READ >499ML. DR RUBY AND SALES ORDER SPECIALIST FRANK NOTIFIED.
--- NOTE | 2017-01-29 17:37 | PN- Gastroenterology ---
Assessment/Plan Assessment/Recommendations: 1. Hyperbilirubinemia. Improved; likely related to gram-negative shefali sepsis. There may be underlying liver disease, such as from alpha-1 antitrypsin deficiency, although aminotransferases and alkaline phosphatase are normal. There is no overt evidence of cirrhosis by examination and imaging, although there is new thrombocytopenia. Coagulopathy resolved. 2. Hematochezia/guaiac positive stool. Most likely secondary to outlet bleeding in the setting of constipation and straining. The patient has occasional heartburn but no other chronic or recurrent GI symptoms. Recommendations * After discharge, follow-up liver function and CBC tests in 1 week. I will see him in my office in a few weeks. * Will need records from Leandro Landers MD as to diagnosis of alpha-1 antitrypsin deficiency, especially genetic evaluation (phenotype/genotype) * MiraLAX daily * Eventual EGD/colonoscopy Thank you very much for allowing my participation in this case. Please call or reconsult GI as needed during this hospitalization. Subjective Subjective: No overt GI bleeding. Apparently had Hemoccult negative stool. No jaundice. Objective Vital Signs and I&Os Vital Signs Date Time Temp Pulse Resp B/P B/P Pulse O2 O2 Flow FiO2 Mean Ox Delivery Rate 01/29 1435 98.5 60 20 120/64 98 Room Air 01/29 0931 72 122/70 01/29 0653 97.7 78 20 126/78 92 Room Air 01/28 2202 97.3 80 19 134/80 93 01/28 2145 134/80 Intake & Output 01/29 1600 01/29 0400 01/28 1600 01/28 0400 01/27 1600 01/27 0400 Intake Total 320 132 221 6642 300 Output Total 562 752 0736 600 750 500 Balance -700 -130 -430 220 600 -200 Intake, IV 200 0 220 1075 300 Intake, Oral 120 770 600 275 Intake, 200 TPN/PPN Number 2 0 4 Bowel Movements Output, Urine 041 349 1582 600 750 500 Patient 177 lb Weight Physical Exam: No scleral icterus. Abdomen benign. Current Medications: Current Medications Sig/Kristen Start time Last Medication Dose Route Stop Time Status Admin Acetaminophen 650 MG Q6P PRN 01/26 0930 AC 01/27 PO 2119 Aspirin Buffered 325 MG DAILY 01/26 1000 AC 01/29 PO 0931 Atorvastatin Calcium 10 MG 1700 01/26 1700 AC 01/28 PO 1824 Bacitracin 1 CELENA DAILY PRN 01/28 0800 AC TOP Ciprofloxacin 400 MG Q12 01/27 1000 AC 01/29 Dextrose/Water 200 ML IV 0931 Doxazosin Mesylate 1 MG DAILY 01/26 1000 AC 01/29 PO 0931 Finasteride 5 MG DAILY 01/26 1040 AC 01/29 PO 0931 Insulin Aspart 0 TIDAC 01/26 0800 AC 01/29 SC 1240 Levothyroxine Sodium 0.025 MG DAILY AC 01/26 0700 AC 01/29 PO 0703 Losartan Potassium 100 MG DAILY 01/27 1102 AC 01/29 PO 0931 Magnesium Chloride 64 MG BID 01/27 1007 AC 01/29 PO 0931 Metoprolol Tartrate 50 MG QPM 01/25 2200 AC 01/28 PO 2145 Morphine Sulfate 1 MG Q6-PRN PRN 01/26 0930 AC IV Pantoprazole Sodium 40 MG DAILY 01/26 1155 AC 01/29 IV 0931 Polyethylene Glycol 17 GM DAILY 01/26 2024 DC 01/26 PO 2306 Potassium Chloride 60 MEQ ONCE ONE 01/29 0845 DC 01/29 PO 01/29 0846 0902 Results Pertinent Lab Results: Laboratory Tests 01/29 01/28 0650 0701 Chemistry Sodium (137 - 145 mmol/L) 129 L 132 L Potassium (3.5 - 5.1 mmol/L) 3.4 L 3.2 L Chloride (98 - 107 mmol/L) 98 103 Carbon Dioxide (22 - 30 mmol/L) 19 L 21 L Anion Gap (5 - 16) 12 9 BUN (9 - 20 mg/dL) 13 17 Creatinine (0.7 - 1.2 mg/dL) 0.9 0.9 Estimated GFR (>60 ml/min) > 60 > 60 BUN/Creatinine Ratio (7 - 25 %) 14.4 18.9 Magnesium (1.6 - 2.3 mg/dL) 1.6 Total Bilirubin (0.2 - 1.3 mg/dL) 2.3 H Direct Bilirubin (< 0.4 mg/dL) 0.5 H AST (17 - 59 U/L) 60 H ALT (21 - 72 U/L) 44 Alkaline Phosphatase (< 127 U/L) 124 Total Protein (6.3 - 8.2 g/dL) 5.5 L Albumin (3.5 - 5.0 g/dL) 2.7 L Hematology CBC w Diff NO MAN DIFF REQ WBC (4.8 - 10.8 /CUMM) 4.1 L RBC (4.70 - 6.10 /CUMM) 3.95 L Hgb (14.0 - 18.0 G/DL) 11.9 L Hct (42 - 52 %) 35.1 L MCV (80.0 - 94.0 FL) 88.9 MCH (27.0 - 31.0 PG) 30.1 RDW (11.5 - 14.5 %) 14.4 Plt Count (130 - 400 /CUMM) 87 L MPV (7.4 - 10.4 FL) 9.4 Gran % (42.2 - 75.2 %) 78.4 H Lymphocytes % (20.5 - 51.1 %) 7.5 L Monocytes % (1.7 - 9.3 %) 13.1 H Eosinophils % (0 - 5 %) 1.0 Basophils % (0.0 - 2.0 %) 0 L Absolute Granulocytes (1.4 - 6.5 /CUMM) 3.2 Absolute Lymphocytes (1.2 - 3.4 /CUMM) 0.3 L Absolute Monocytes (0.10 - 0.60 /CUMM) 0.5 Absolute Eosinophils (0.0 - 0.7 /CUMM) 0 Absolute Basophils (0.0 - 0.2 /CUMM) 0 PUBS MCHC (33.0 - 37.0 G/DL) 33.8 01/27 Chemistry Sodium (137 - 145 mmol/L) 129 L Potassium (3.5 - 5.1 mmol/L) 3.7 Chloride (98 - 107 mmol/L) 101 Carbon Dioxide (22 - 30 mmol/L) 18 L Anion Gap (5 - 16) 10 BUN (9 - 20 mg/dL) 19 Creatinine (0.7 - 1.2 mg/dL) 0.9 Estimated GFR (>60 ml/min) > 60 BUN/Creatinine Ratio (7 - 25 %) 21.1 Lactic Acid (0.7 - 2.1 mmol/L) 1.7 Magnesium (1.6 - 2.3 mg/dL) 1.5 L Total Bilirubin (0.2 - 1.3 mg/dL) 3.4 H Cancelled Direct Bilirubin (< 0.4 mg/dL) 0.6 H Cancelled AST (17 - 59 U/L) 28 Cancelled ALT (21 - 72 U/L) 39 Cancelled Alkaline Phosphatase (< 127 U/L) 71 Cancelled Total Protein (6.3 - 8.2 g/dL) 5.3 L Cancelled Albumin (3.5 - 5.0 g/dL) 2.6 L Cancelled Coagulation PT (9.4 - 12.5 SEC) 12.4 INR (0.90 - 1.17) 1.18 H Hematology CBC w Diff NO MAN DIFF REQ WBC (4.8 - 10.8 /CUMM) 6.8 RBC (4.70 - 6.10 /CUMM) 3.96 L Hgb (14.0 - 18.0 G/DL) 12.0 L Hct (42 - 52 %) 35.9 L MCV (80.0 - 94.0 FL) 90.6 MCH (27.0 - 31.0 PG) 30.3 RDW (11.5 - 14.5 %) 14.8 H Plt Count (130 - 400 /CUMM) 83 L MPV (7.4 - 10.4 FL) 9.9 Gran % (42.2 - 75.2 %) 87.5 H Lymphocytes % (20.5 - 51.1 %) 6.5 L Monocytes % (1.7 - 9.3 %) 5.4 Eosinophils % (0 - 5 %) 0.4 Basophils % (0.0 - 2.0 %) 0.2 Absolute Granulocytes (1.4 - 6.5 /CUMM) 6.0 Absolute Lymphocytes (1.2 - 3.4 /CUMM) 0.4 L Absolute Monocytes (0.10 - 0.60 /CUMM) 0.4 Absolute Eosinophils (0.0 - 0.7 /CUMM) 0 Absolute Basophils (0.0 - 0.2 /CUMM) 0 PUBS MCHC (33.0 - 37.0 G/DL) 33.5
[2017-01-29] MEDS ORDERED: PERCOCET 5-3251 EACH PO (18:28)
--- NOTE | 2017-01-29 18:30 | Discharge Summary ---
Visit Information Visit Dates Admission Date: 01/25/17 Discharge Date: 01/29/17 Hospital Course Course Attending Physician: RACHEL JERONIMO MD Primary Care Physician: ТАТЬЯНА BILLINGS MD Consulting Request: 1 Consulting Specialty: Gastroenterology Consulting Physician: Dr. Rimma Ziegler MD Reason for Consult: Hyperbilirubinemia Consulting Request: 2 Consulting Specialty: Urology Consulting Physician: Dr. Bam MD Reason for Consult: Acute prostatitis Hospital Course: Mr. 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 Vital signs in the ED: Tmax 99.8, HR 120, RR 18, BP 120/75 and O2 saturation 94% on room air. Labs were significant for: WBC 17 with 92% granulocytes and 15 bands, H&H 14.9/ 44.9 Plt 142, Na 133, K 4, Cl 95, HCO2 16, BUN/cre 25/1.8. EKG showed sinus tachycardia with HR [address] head showed no acute intracranial abnormality. CT abdomen/pevlis showed mild fat stranding identified within the pelvis about the rectum without wall thickening. RUQ US showed liver of diffuse heterogeneous echogenicity without focal lesions. No cholelithiasis or cholecystitis. Patient was admitted to the general medicine floor and the following was the management: 1. Severe sepsis secondary to prostatitis: Met SIRS criteria for sepsis on admission with tachycardia and leukocytosis (WBC count 17 with 15% bands). Qualified for severe sepsis in the setting of ERIKA and lactic acid of 9.0 on admission. Hemodynamically stable with normal mental status. Most likely source is UTI given presenting symptom of urinary retention and urinalysis positive for leukocyte esterase. Ferrera catheter was inserted in the ED. Patient was given 1 dose of ceftriaxone and flagyl in the ED along with a total of 3.5 L bolus of normal saline. He was placed on ceftriaxone form admission, however prostatic exam done the following morning showed severe prostate tenderness suggestive of prostatitis. Urology consult was placed and patient was started on IV ciprofloxacin. This was transitioned to PO and ferrera catheter was removed, though patient was unable to void after 5 hours with >400 cc in his bladder. Ferrera was reinserted and patient was discharged with instructions to follow up with Dr. Bam MD within 7 days for continued management of the ferrera catheter /prostatitis. He will complete a 28 day course of ciprofloxacin as an outpatient. 2. Hyperbilirubinemia: Total bilirubin 6.5 on admission. Mostly indirect, with direct bilirubin of 1.2. AST/ALT and alkaline phosphatase WNL. RUQ US with diffuse heterogeneous echogenicity without focal lesions, nonspecific in appearance but consistent with fatty infiltration. Likely secondary to suspected liver disease related to alpha-1 antitrypsin deficiency. INR elevated at 1.48 likely secondary to early cirrhosis. GI consult was placed with Dr. Rimma Ziegler MD. Miralax was started daily but subsequently discontinued secondary to several loose bowel movements. No further intervention was required inpatient. Quentin will follow up with Dr. Ziegler within 2 weeks of discharge after having a CBC and LFTs checked on 02/05 (written prescription given to patient for outpatient lab work). Patient will eventually need EGD and colonoscopy. 3. ERIKA on CKD: Creatinine 1.8 on admission, increased from baseline of 1.1-1.2. Likely prerenal secondary to sepsis and dehydration from nausea/vomiting. Patient was hydrated and oral diet was started. Renal function improved quickly, nephrotoxins were avoided. Patient will follow up with PCP after discharge who may monitor renal function as indicated. 4. Hypomagnesemia: Mg 0.8 on admission. Likely secondary to nausea and vomiting. Mag repleted during admission and patient was discharged on slow mag for improvement. 5. Type 2 DM: Patient takes metformin 1000 mg PO BID at home. This was held and he was started on novolog sliding scale with meals. On discharge, metformin was resumed. 6. HTN: Patient takes metoprolol 50 mg PO QPM and losartan 100 mg PO daily at home. Losartan was initially held secondary to ERIKA. Both medications were resumed at discharge and his BP remained stable during his stay. 7. Hypothyroidism: Patient was continued on [id number] levothyroxine 0.025 mg PO daily AC. 8. HLD: Paitent was continued on [id number]-[id number] ASA 81 mg PO daily and atorvastatin 10 mg PO daily. 9. Diet: Consistent carbohydrate 3 10. Code status: FULL 11. DVT Prophylaxis: Heparin SC Complications: None. Allergies: Coded Allergies: Sulfa (Sulfonamide Antibiotics) (Intermediate, SWEATY 01/08/16) adhesive tape (Intermediate, EATS MY SKIN 01/08/16) latex (RASH 01/08/16) Significant Procedures: CXR: FINDINGS: Chronic pulmonary emphysema. Peribronchial interstitial opacities and bronchiectasis in lower lobes remain similar in appearance compared to 01/08/2016. No superimposed airspace opacification or pleural effusion. Cardiac silhouette is normal in size. Trachea is midline in position. The mediastinal and hilar contours are normal. No acute skeletal findings. IMPRESSION: 1. Pulmonary emphysema. 2. Chronic interstitial thickening/fibrosis and bronchiectasis in the lower lobes. Head CT: IMPRESSION: Diffuse motion abnormality degrades image quality and slightly limits evaluation of the brain, notably the middle cranial and posterior cranial fossae. There is no acute intracranial abnormality. There are chronic appearing infarcts within the left basal ganglia as well as within the left mello radiata. Areas of hypoattenuation within the deep cortical white matter as well as within the periventricular white matter are nonspecific but may reflect sequela of chronic microvascular ischemia. Abdominal/pelvis CT: IMPRESSION: Neither hydronephrosis nor nephrolithiasis. Nearly empty urinary bladder with a Ferrera catheter in place. Nonspecific mild fat stranding identified within the pelvis about the rectum without wall thickening. Manifestations of emphysema again identified within the visualized lung bases. Abdominal US: IMPRESSION: Liver of diffuse heterogeneous echogenicity without focal lesions. The appearance is nonspecific, but consistent with fatty infiltration. Neither cholelithiasis nor cholecystitis. Renal US: IMPRESSION: 1. Unremarkable appearance of the bilateral kidneys. No appreciable nephrolithiasis or hydronephrosis of either kidney. 2. Limited evaluation of the urinary bladder secondary to bladder underdistention. 3. Limited visualization of the prostate gland secondary to bladder underdistention. The prostate gland measures 3.5 x 3.8 x 4.9 cm. Correlate clinically for signs and symptoms of prostatitis. F/U CXR: IMPRESSION: Linear atelectasis is present at the left lung base. No other change. Emphysema. Disposition Summary Disposition Principal Diagnosis: Acute prostatitis Severe sepsis Additional Diagnosis: Hyperbilirubinemia ERIKA on CKD T2DM HTN Hypothyroidism HLD Discharge Disposition: home or self care Discharge Instructions General Discharge Information Code Status: Full Code Patient's Diet: Consistent carbohydrate 2 Patient's Activity: Self-limited, as tolerated. Follow-Up Instructions/Appts: Please follow up with your PCP Dr. Awa MD within 7 days of discharge. Please follow up with Dr. Bam MD within 7 days of discharge. He will monitor ferrera catheter and prostatitis. Please follow up with Dr. Rimma Ziegler MD within 2 weeks of discharge. Please have a CBC and LFTs drawn in 1 week, results to be sent to Dr. Rimma Ziegler MD. Please take all medications as directed. Medications at Discharge Discharge Medications: Continue taking these medications: Atorvastatin Calcium (Atorvastatin Calcium) 20 MG TABLET 0.5 Tablet ORAL DAILY Qty = 90 Comments: Last Taken: 01/29/17 Time: 600 PM Metoprolol Tartrate (Metoprolol Tartrate) 50 MG TABLET 1 Tablet ORAL Every night Qty = 90 Comments: Last Taken: 01/28/17 Time: 945 PM Metformin HCl (Metformin HCl ER) 500 MG TAB.ER.24H 2 Tablet ORAL TWICE DAILY Qty = 180 Comments: NOT GIVEN IN HOSPITAL Losartan Potassium (Losartan Potassium) 100 MG TABLET 1 Tablet ORAL DAILY Qty = 90 Comments: Last Taken: 01/29/17 Time: 930 AM Aspirin (Ecotrin*) 325 MG TABLET. 1 Tablet ORAL DAILY Comments: Last Taken: 01/29/17 Time: 9:30 AM Levothyroxine Sodium (Levothyroxine Sodium) 25 MCG TABLET 1 Tablet ORAL DAILY Qty = 30 Comments: Last Taken: 01/29/17 Time: 703 AM Start taking the following new medications: Finasteride (Finasteride) 5 MG TABLET 5 Milligram ORAL DAILY Qty = 30 No Refills Instructions: . Comments: Last Taken: 01/29/17 Time: 930 AM Magnesium Chloride (Slow-Mag) 71.5 MG TABLET. 64 Milligram ORAL TWICE DAILY Qty = 60 No Refills Instructions: . Comments: Last Taken: 01/29/17 Time: 930 AM Doxazosin (Cardura) 1 MG TABLET 1 Milligram ORAL DAILY Qty = 30 No Refills Instructions: . Comments: Last Taken: 01/29/17 Time: 930 AM Ciprofloxacin HCl (Cipro) 500 MG TABLET 1 Tablet ORAL TWICE DAILY Qty = 54 No Refills Instructions: . Comments: Last Taken: 01/29/17 Time: 930 AM IV VERSION IN HOSPITAL Oxycodone HCl/Acetaminophen (Percocet 5-325 MG Tablet) 5 MG-325 MG TABLET 1 Tablet ORAL TWICE DAILY as needed for Moderate to severe pain Qty = 10 No Refills Comments: NOT GIVEN IN HOSPITAL Copies To: AWA WILL,ТАТЬЯНА; HILTON SAMPSON MD; ACE WILL,RIMMA Tabor Attending MD Review Statement Documenting Attending: JACQUELINE RUBY MD
== END 2017-01-29 19:35 | DRG 872 ==
LOC: ERH 17:22 → ERHI 20:02 → 2NB 20:02 → ENRESERV 21:11 → ENTRNSPT 21:42 → 2NB 01-26 00:30 → CMPTRNSPT 01-26 07:00 → ENPENDDIS 01-29 18:46 → 2NB 01-29 19:35
PROVIDERS: Dermatology; Internal Medicine Endocrinology, Diabetes & Metabolism; Physician Assistant; Preventive Medicine Public Health & General Preventive Medicine; Student in an Organized Health Care Education/Training Program; ADMIT Internal Medicine
DX: A41.50 Gram-negative sepsis, unspecified (principal); N17.9 Acute kidney failure, unspecified; E87.2 Acidosis; E88.01 Alpha-1-antitrypsin deficiency; N41.0 Acute prostatitis; I69.351 Hemiplegia and hemiparesis following cerebral infarction affecting right dominant side; N39.0 Urinary tract infection, site not specified; E83.42 Hypomagnesemia; E11.9 Type 2 diabetes mellitus without complications; Z87.891 Personal history of nicotine dependence; R65.20 Severe sepsis without septic shock; Z79.84 Long term (current) use of oral hypoglycemic drugs; E78.5 Hyperlipidemia, unspecified; R33.9 Retention of urine, unspecified; E80.6 Other disorders of bilirubin metabolism
CPT/HCPCS: 2NBSP; ERO; 74176; 76775; 81001; 82436; 87040; 87086; 93005; 93010; 96374; 96375; 97116-GO; 97161-GP; 97530-GO; 99291; J0131; J0696; J0744; J1644; J3490; J7040; J7060

== ENCOUNTER 2017-12-20 14:44 | Inpatient (IN) | payer OTHER ==
[~2017-12-20] VITALS: Ht 182.9 cm; Wt 81.3 kg
[~2017-12-20 14:44] MED LIST changes: +ASPIRIN EC325 M2 PO; +CARDURA1 M1 PO; +CIPRO500 M1 PO; +FINASTERIDE5 M1 PO; +LEVOTHYROXINE25 MCG PO; +PERCOCET 5-3251 EACH PO; +SLOW-MAG71.5 MG PO
--- NOTE | 2017-12-20 14:56 | ED DYSPNEA/ASTHMA COMPLAINT ---
History of Present Illness General Chief Complaint: Dyspnea (COPD, CHF, Other) Stated Complaint: SOB x4 DAYS Source: patient Exam Limitations: no limitations Vital Signs & Intake/Output Vital Signs & Intake/Output Vital Signs Date Time Temp Pulse Resp B/P B/P Pulse O2 O2 Flow FiO2 Mean Ox Delivery Rate 12/20 1933 98 Nasal 5.0L Cannula 12/20 1932 98.4 111 24 144/71 98 Nasal 5.0L Cannula 12/20 1729 98.9 118 24 148/74 94 Nasal 4.0L Cannula 12/20 1540 96 Nasal 4.0L Cannula 12/20 1501 97.7 127 26 142/75 92 Nasal 4.0L Cannula 12/20 1451 95 Nasal 4.0L Cannula Allergies Coded Allergies: Sulfa (Sulfonamide Antibiotics) (Intermediate, SWEATY 01/08/16) adhesive tape (Intermediate, EATS MY SKIN 01/08/16) latex (RASH 01/08/16) Reconcile Medications Aspirin (Ecotrin*) 325 MG TABLET.DR 1 TAB PO DAILY HEART/BLOOD (Reported) Atorvastatin Calcium 20 MG TABLET 0.5 TAB PO DAILY CHOLESTEROL (Reported) Ciprofloxacin HCl (Cipro) 500 MG TABLET 1 TAB PO BID Prostatitis . Doxazosin (Cardura) 1 MG TABLET 1 MG PO DAILY Prostate . Finasteride 5 MG TABLET 5 MG PO DAILY Prostate . Levothyroxine Sodium 25 MCG TABLET 1 TAB PO DAILY THYROID (Reported) Losartan Potassium 100 MG TABLET 1 TAB PO DAILY HEART (Reported) Magnesium Chloride (Slow-Mag) 71.5 MG TABLET.DR 64 MG PO BID Supplement . Metformin HCl (Metformin HCl ER) 500 MG TAB.ER.24H 2 TAB PO BID DIABETES ( Reported) Metoprolol Tartrate 50 MG TABLET 1 TAB PO QPM HEART (Reported) Oxycodone HCl/Acetaminophen (Percocet 5-325 MG Tablet) 5 MG-325 MG TABLET 1 TAB PO BID PRN Moderate to severe pain Triage Nurses Notes Reviewed? yes Onset: Gradual Duration: getting worse Timing: recent history Severity: severe HPI: Patient is a 67-year-old male with a past medical history of L4 1 antitrypsin deficiency, left CVA with RESIDUAL right-sided weakness, [id number] diabetes, last admission to [facility] was January 2017 for concerns of severe sepsis secondary to prostatitis ERIKA, history also includes hypothyroidism hyperlipidemia hypertension and hypomagnesemia who presents emergency room with concerns of a 3-4 day history of shortness of breath difficulty breathing and severe weakness the patient is unable to get out of bed. Patient does report of dry nonproductive to intermittent productive coughing for the past 3 days. Patient due to generalized weakness slid from the toilet to the floor and called for help. Patient was brought in by ambulance. EMS reports oxygen saturation was in the 80s on arrival patient is not on home O2. Blood glucose is 181 on arrival. It is noted that patient had cataract procedure to left eye on December 13 and was advised to follow-up with another director of employee development Dr. TINAJERO FOR PROCEDURAL REPAIR OF THE CATARACT WHICH WAS LAST Wednesday rate before symptoms began. Patient denies any chest pain arm pain jaw pain nausea vomiting hemoptysis leg swelling. Denies any fever chills (Victorino Valverde) Past History Medical History Any Pertinent Medical History? see below for history Neurological: CVA Cardiovascular: CAD, hypertension, hyperlipidemia Respiratory: spontaneous pneumothorax lung disease related to alpha-1 antitrypsin deficiency Renal: prostatitis Endocrine: diabetes, hypothyroidism Other Medical Hx: alpha-1 antitrypsin deficiency History of MRSA: No History of VRE: No History of CDIFF: No Surgical History Surgical History: cholecystectomy Psychosocial History Who do you live with Spouse Services at Home None What is your primary language Sami Family History Family History, If Any: SISTER FH: leukemia MOTHER FH: CVA (cerebrovascular accident) FH: hypertension BROTHER FH: alpha 1 antitrypsin deficiency FH: COPD (chronic obstructive pulmonary disease) BROTHER FH: CAD (coronary artery disease) FH: NM (myocardial infarction) FATHER, ; Cause: CVA (cerebral vascular accident). FH: CVA (cerebrovascular accident) Hx Contributory? No (Victorino Valverde) Review of Systems Review of Systems Constitutional: Reports: see HPI, weakness. EENTM: Reports: no symptoms. Respiratory: Reports: see HPI, cough, short of breath. Cardiovascular: Reports: no symptoms. GI: Reports: no symptoms. Genitourinary: Reports: no symptoms. Musculoskeletal: Reports: no symptoms. Skin: Reports: no symptoms. Neurological/Psychological: Reports: no symptoms. Hematologic/Endocrine: Reports: no symptoms. Immunologic/Allergic: Reports: no symptoms. All Other Systems: Reviewed and Negative (Victorino Valverde) Physical Exam Physical Exam General Appearance: mild distress Head: atraumatic Eyes: Bilateral: normal appearance, PERRL, EOMI. Ears, Nose, Throat: normal ENT inspection, hearing grossly normal Neck: normal inspection Respiratory: decreased breath sounds, respiratory distress Cardiovascular: tachycardia Peripheral Pulses: 2+ radial (R) Gastrointestinal: normal bowel sounds, soft, tenderness Extremities: normal inspection Skin: intact, normal color, warm/dry Core Measures ACS in differential dx? Yes CVA/TIA Diagnosis No Sepsis Present: Yes Sepsis Focused Exam Completed? Yes (Darling SIMPSON,Victorino) Progress Differential Diagnosis: asthma, AMI, bronchitis, costochondritis, CHF, COPD, musculoskeletal pain, pericarditis, pulmonary embolism, pneumonia, pneumothorax, unstable angina Plan of Care: Orders Procedure Date/time Status Regular Diet 12/21 B Active MAGNESIUM 12/21 06 Active CBC WITHOUT DIFFERENTIAL 12/21 06 Active BASIC ELECTROLYTES PLUS BUN&CR 12/21 599 Active LACTIC ACID 12/21 0200 Active LACTIC ACID 12/20 2300 Active TRC EVALUATION (GEN) 12/20 2030 Active OXYGEN SETUP (GEN) 12/20 203 Active Saline Lock 12/20 203 Active Pathway - chart 12/20 203 Active House Staff 12/20 203 Active URINALYSIS 12/20 203 Active Code Status 12/20 203 Active Patient Data 12/20 1843 Active LOWER RESPIRATORY CULTURE 12/20 1829 Active ED Holding Orders 12/20 1827 Active Admit to inpatient 12/20 1827 Active Code Status 12/20 1827 Complete LACTIC ACID 12/20 1821 Active Add-on Test (ER Only) 12/20 1627 Active BLOOD CULTURE 12/20 1627 Active PARTIAL THROMBOPLASTIN TIME 12/20 1627 Active PROTHROMBIN TIME 12/20 1627 Active PARTIAL THROMBOPLASTIN TIME 12/20 1545 Complete PROTHROMBIN TIME 12/20 1545 Complete DIRECT BILIRUBIN 12/20 1545 Complete Telemetry/Hand Glove Cleaner 12/20 1521 Active THYROID STIMULATING HORMONE 12/20 1521 Complete TROPONIN LEVEL 12/20 1521 Complete MAGNESIUM 12/20 1521 Complete LACTIC ACID 12/20 1521 Complete FREE T4 12/20 1521 Complete D-DIMER 12/20 1521 Complete COMPREHENSIVE METABOLIC PANEL 12/20 1521 Complete CBC WITHOUT DIFFERENTIAL 12/20 1521 Complete B-TYPE NATRIURETIC PEP (BNP) 12/20 1521 Complete ARTERIAL BLOOD GAS (GEN) 12/20 1514 Complete EKG 12/20 1501 Active TRC EVALUATION (GEN) 12/20 UNK Active Weight 12/20 UNK Active VTE Mechanical Prophylaxis 12/20 UNK Active Vital Signs 12/20 UNK Active Telemetry/Hand Glove Cleaner 12/20 UNK Active Intake & Output 12/20 UNK Active FingerStick- Glucose 12/20 UNK Active Activity/Ambulation 12/20 UNK Active Current Medications Sig/Kristen Start time Last Medication Dose Stop Time Status Admin Insulin Aspart 0 TIDAC 12/21 0800 UNVr (NovoLOG) Heparin Sodium 5,000 UNIT Q8 12/20 2200 UNVr (Porcine) Sodium Chloride 1,000 ML ONCE ONE 12/20 2029 UNVr (Normal Saline 0.9%) 12/21 0949 Laboratory Tests 12/20/172007: Lactic Acid Cancelled 12/20/172006: Lactic Acid Pending 12/20/17 1545: Anion Gap 20 H, Estimated GFR 51 L, BUN/Creatinine Ratio 14.3, Glucose 206 H, Lactic Acid 5.7 H, Calcium 9.2, Magnesium 1.2 L, Total Bilirubin 5.6 H, Direct Bilirubin 1.2 H, AST 43, ALT 39, Alkaline Phosphatase 128 H, Troponin I < 0.01, Cmy-V-Dkdpysyipoc Pept 313 H, Total Protein 7.6, Albumin 4.3, Globulin 3.3, Albumin/Globulin Ratio 1.3, TSH 1.310, Free T4 1.24, PT 13.5 H, INR 1.24 H, APTT 31, D-Dimer High Sensitivty 457 H, CBC w Diff MAN DIFF ORDERED, RBC 4.77, MCV 88.3, MCH 29.7, MCHC 33.6, RDW 14.4, MPV 8.2, Gran % 90.5 H, Lymphocytes % 2.6 L, Monocytes % 6.8, Eosinophils % 0, Basophils % 0.1, Absolute Granulocytes 18.5 H, Segmented Neutrophils 87 H, Band Neutrophils 4, Absolute Lymphocytes 0.5 L, Lymphocytes 4 L, Monocytes 5, Absolute Monocytes 1.4 H, Absolute Eosinophils 0, Absolute Basophils 0, Platelet Estimate VERIFIED BY SMEAR, Normocytic RBCs VERIFIED, Normochromic RBCs VERIFIED, Fld Total RBCs Counted 100 12/20/17 1530: pH 7.51 H, pCO2 16 L, pO2 67 L, HCO3 12 L, ABG O2 Sat (Measured) 94.0 L, Carboxyhemoglobin 1.2 L, O2 Concentration % 4L, O2 Delivery Method NC, Phlebotomy Draw Site LEFT RADIAL Microbiology 12/20 1828 LOWER RESP: Respiratory Culture - ORD 12/20 1828 LOWER RESP: Gram Stain - ORD 12/20 1704 BLOOD: Blood Culture - RECD 12/20 1655 BLOOD: Blood Culture - RECD Diagnostic Imaging: Viewed by Me: Radiology Read, CT Scan. Radiology Impression: acute abnormality Initial ED EKG: SINUS TACHYCARDIA 123 BPM Comments: PATIENT: VICTORINO COPELAND PRESENT AGE: 67 PATIENT ACCOUNT NO: [id number] : 52 LOCATION: [facility] ORDERING PHYSICIAN: Victorino SIMPSON SERVICE DATE: 12/20/17 EXAM TYPE: CAT - CT ABD & PELVIS W IV CONTRAST; CTA CHEST-PULMONARY EMBOLISM EXAMINATION: 1. CTA chest: 2. CT ABDOMEN AND PELVIS WITH CONTRAST CLINICAL INFORMATION: Shortness of breath. Sepsis. COMPARISON: CT abdomen pelvis 01/25/2017. Portable chest 12/20/2017 TECHNIQUE: A noncontrast localizer was performed, followed by the administration of 95 mL Optiray [address] of the chest was then performed. Coronal and sagittal reformatted and 3-D technique MIP images of the chest were completed at the CT scanner and reviewed on the PACS workstation. No adverse effects were reported. Images were then performed through the abdomen and pelvis. Coronal and sagittal reformatted images performed at CT scanner by technologist. DLP: 879.69 mGy-cm. FINDINGS: 1. CTA CHEST; VASCULAR: The main pulmonary artery, secondary and tertiary branches of the pulmonary artery are normally opacified with no evidence of pulmonary embolism. The aorta and great vessels are unremarkable. MEDIASTINUM: No mediastinal mass. No significant lymphadenopathy. There is no pericardial effusion. LUNGS: There is advanced Ghosh emphysematous changes of lung. There is a patchy infiltrate with bronchial wall thickening in the left lower lobe posteriorly. The right lung is clear. FLUID: There is no pericardial effusion. There is no pleural effusion. AXILLA: No significant lymphadenopathy. 2. CT SCAN ABDOMEN PELVIS: LIVER, GALLBLADDER, AND BILIARY TREE: The liver is normal in size, shape, and attenuation. No focal hepatic lesion or biliary ductal dilatation is present. Status post cholecystectomy. PANCREAS: Unremarkable. SPLEEN: Spleen is mildly enlarged measuring 16 cm of length. This is unchanged since the CAT scan of 01/25/2017. ADRENAL GLANDS: Unremarkable. KIDNEYS AND URETERS: The kidneys are normal in size, shape, and attenuation. No hydronephrosis, hydroureter, or calculi seen. No perinephric stranding. 0.8 cm hypodense lesion in the cortex lower pole of the right kidney likely small renal cysts. BLADDER: Faye catheter within the bladder. Bladder is empty. GASTROINTESTINAL TRACT: The small and large bowel are unremarkable. The appendix is unremarkable. There is a small hiatal hernia. MESENTERY: No inflammation. No free air or free fluid. ABDOMINAL WALL: No significant hernia is appreciated. LYMPH NODES: Normal. VASCULAR: There is atherosclerotic vascular wall calcifications of aorta and iliac arteries without aneurysm. PELVIC VISCERA: Coarse calcifications within the prostate. Prostate measures 3.8 cm transverse. OSSEOUS STRUCTURES: Degenerative spondylosis spine with multilevel disc height narrowing and endplate spurring of the vertebrae. IMPRESSION: 1. No evidence of pulmonary embolism. 2. Emphysematous changes of lung. 3. Patchy left lower lobe infiltrate. 4. No acute abnormality of the abdomen or pelvis. There is mild splenomegaly. DICTATED BY: Jonh Mesa MD DATE/TIME DICTATED:12/20/171803 PICKLE CUTTER:PRAKASH DATE/TIME TRANSCRIBED:12/20/17 (Victorino Valverde) ED Sepsis Exam Date of Focused Sepsis Exam: 12/20/17 Time of Focused Sepsis Exam: 1515 Sepsis Cardiac Exam: Tachycardia Sepsis Resp Exam: CTA Sepsis Cap Refill Exam: <2 Sec Sepsis Peripheral Pulse Exam: Normal Sepsis Peripheral Pulse Location: Radial Sepsis Skin Color Exam: Normal for Ethnicity Skin Temp/Moisture Exam: Warm/Dry (Victorino Valverde) Departure Departure Disposition: STILL A PATIENT Condition: Guarded Clinical Impression Primary Impression: Sepsis Secondary Impressions: Elevated bilirubin, Pneumonia, Respiratory failure Referrals: Aleyda Vivar MD (PCP/Family) Departure Forms: Customer Survey General Discharge Information Admission Note Spoke With: Lenka Briceno MD Documentation of Exam: Documentation of any treatments & extenuating circumstances including Concerns Regarding Discharge (functional status, medication knowledge or non-compliance, living conditions, etc.) that warrant an admission rather than observation: [PT REQUIRES IV antibiotics IV fluids, pulmonary consultation and repeat labs repeat nebulizer treatments pulmonary consultation] (Victorino Valverde) PA/[employer] PLANT OPERATOR Co-Sign Statement Statement: ED Attending supervision documentation- [] I saw and evaluated the patient. I have also reviewed all the pertinent lab results and diagnostic results. I agree with the findings and the plan of care as documented in the PA's/[employer] OPERATOR's documentation. [X] I have reviewed the ED Record and agree with the PA's/PARA[employer] PL[employer] OPERATOR's documentation. [] Additions or exceptions (if any) to the PAs/PARA[employer]IN PLANT OPERATOR's note and plan are summarized below: [] (Judd Gamble DO) Critical Care Note Critical Care Note Critical Care Time: 75-104 min (Victorino Valverde)
[2017-12-20 15:54] LABS: ABSOLUTE BASOPHIL COUNT 0 /CUMM (0.0-0.2); ABSOLUTE EOSINOPHIL COUNT 0 /CUMM (0.0-0.7); ABSOLUTE GRANULOCYTE CT 18.5 /CUMM (1.4-6.5); ABSOLUTE LYMPH COUNT 0.5 /CUMM (1.2-3.4); ABSOLUTE MONOCYTE COUNT 1.4 /CUMM (0.10-0.60); BASOPHIL % 0.1 % (0.0-2.0); EOSINOPHIL % 0 % (0-5); GRANULOCYTE % 90.5 % (42.2-75.2); HEMATOCRIT 42.1 % (42-52); MEAN CORPUSCULAR HGB 29.7 PG (27.0-31.0); MEAN CORPUSCULAR HGB CONC 33.6 G/DL (33.0-37.0); MEAN CORPUSCULAR VOLUME 88.3 FL (80.0-94.0); MEAN PLATELET VOLUME 8.2 FL (7.4-10.4); PLATELET COUNT 253 /CUMM (130-400); RBC DISTRIBUTION WIDTH 14.4 % (11.5-14.5); RED BLOOD CELL CT 4.77 /CUMM (4.70-6.10); WHITE BLOOD CELL COUNT 20.5 /CUMM (4.8-10.8)
--- NOTE | 2017-12-20 16:27 | RADIOLOGY REPORT ---
EXAMINATION: XR PORTABLE CHEST CLINICAL INFORMATION: Shortness of breath. COMPARISON: Chest x-ray 04/30/[address] abdomen pelvis 01/25/2017 TECHNIQUE: Portable frontal view of the chest was obtained. 3:57 PM FINDINGS: There is emphysematous hyperlucency of lungs. There is no acute change. No infiltrate. No pulmonary vascular congestion. There is no pleural effusion or pneumothorax. The heart size is normal. The cardiac and mediastinal contours are normal. IMPRESSION: 1. Emphysematous changes of lungs. 2. No acute abnormality of the chest.
[2017-12-20 16:40] LABS: PT 13.5 SEC (9.4-12.5); PTT 31 SEC (25-37)
--- NOTE | 2017-12-20 18:18 | CT SCAN REPORT ---
EXAMINATION: 1. CTA chest: 2. CT ABDOMEN AND PELVIS WITH CONTRAST CLINICAL INFORMATION: Shortness of breath. Sepsis. COMPARISON: CT abdomen pelvis 01/25/2017. Portable chest 12/20/2017 TECHNIQUE: A noncontrast localizer was performed, followed by the administration of 95 mL Optiray [address] of the chest was then performed. Coronal and sagittal reformatted and 3-D technique MIP images of the chest were completed at the CT scanner and reviewed on the PACS workstation. No adverse effects were reported. Images were then performed through the abdomen and pelvis. Coronal and sagittal reformatted images performed at CT scanner by technologist. DLP: 879.69 mGy-cm. FINDINGS: 1. CTA CHEST; VASCULAR: The main pulmonary artery, secondary and tertiary branches of the pulmonary artery are normally opacified with no evidence of pulmonary embolism. The aorta and great vessels are unremarkable. MEDIASTINUM: No mediastinal mass. No significant lymphadenopathy. There is no pericardial effusion. LUNGS: There is advanced Ghosh emphysematous changes of lung. There is a patchy infiltrate with bronchial wall thickening in the left lower lobe posteriorly. The right lung is clear. FLUID: There is no pericardial effusion. There is no pleural effusion. AXILLA: No significant lymphadenopathy. 2. CT SCAN ABDOMEN PELVIS: LIVER, GALLBLADDER, AND BILIARY TREE: The liver is normal in size, shape, and attenuation. No focal hepatic lesion or biliary ductal dilatation is present. Status post cholecystectomy. PANCREAS: Unremarkable. SPLEEN: Spleen is mildly enlarged measuring 16 cm of length. This is unchanged since the CAT scan of 01/25/2017. ADRENAL GLANDS: Unremarkable. KIDNEYS AND URETERS: The kidneys are normal in size, shape, and attenuation. No hydronephrosis, hydroureter, or calculi seen. No perinephric stranding. 0.8 cm hypodense lesion in the cortex lower pole of the right kidney likely small renal cysts. BLADDER: Faye catheter within the bladder. Bladder is empty. GASTROINTESTINAL TRACT: The small and large bowel are unremarkable. The appendix is unremarkable. There is a small hiatal hernia. MESENTERY: No inflammation. No free air or free fluid. ABDOMINAL WALL: No significant hernia is appreciated. LYMPH NODES: Normal. VASCULAR: There is atherosclerotic vascular wall calcifications of aorta and iliac arteries without aneurysm. PELVIC VISCERA: Coarse calcifications within the prostate. Prostate measures 3.8 cm transverse. OSSEOUS STRUCTURES: Degenerative spondylosis spine with multilevel disc height narrowing and endplate spurring of the vertebrae. IMPRESSION: 1. No evidence of pulmonary embolism. 2. Emphysematous changes of lung. 3. Patchy left lower lobe infiltrate. 4. No acute abnormality of the abdomen or pelvis. There is mild splenomegaly.
--- NOTE | 2017-12-20 20:01 | History & Physical ---
Francoise Stevenson 12/20/171999: General Information and HPI MD Statement: I have seen and personally examined VICTORINO WALDEN and documented this H&P. The patient is a 67 year old M who presented with a patient stated chief complaint of dyspnea. 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 AAT deficiency ( dx' ed 2012 and related spontaneous pneumothorax, but never had phenotype or genotype eval done), recent admission to [facility] in 01/2017 for prostatitis, came to the hospital with a chief concern of dyspnea 3-4 days. After he was discharged from the hospital, he was evaluated by Dr. Kuhn, and has been doing well until a week ago. He was known to be in is usual state of health until one week ago. As per the , he appeared more jaundiced than usual. In the last 3-4 days, he started developing productive cough, but unable to know the color of the phlegm, which apprently is getting progressively worse. Also reported fever in the last two days, and recorded temp of 99.0. He also had worseing dyspnea that started with dyspnea upon ambulation to go the bathroom which progressed to dyspnea at rest. Reported inability to lie flat now. No PND. No chest pain, or palpitations; reported sick contacts. Reported decreased po intake in the last few days, and has been feeling more lethargic and weak in the last few days. He also had two episodes of vomiting x 1 day ago, and one episode on the day of presentation; after which he sat on the commode and slipped and fell on the ground. Did not have any reported injuries to be back, hip or head. He was on the floor for approximately 30' before any help arrived. Reported no LOC, seizures, or loss of bladder or bowel function. No edison, brbpr, no blood in vomitus. No recent hospital admissions. He was supposed to follow up with Dr. 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 He has seen Dr. Gonzalez, Opthalmologist for cataract surgery and reported some complication from the procedure, and history wasnt very clear. Past smoker 50 pk yr smoking history, quit 5 yrs ago; FHx significant for AAT def in brother who is . He is ambulatory at baseline, and slightly weak on the right side but did not have any significant weakness. Allergies/Medications Allergies: Coded Allergies: Sulfa (Sulfonamide Antibiotics) (Intermediate, SWEATY 01/08/16) adhesive tape (Intermediate, EATS MY SKIN 01/08/16) latex (RASH 01/08/16) Home Med list Aspirin (Ecotrin*) 325 MG TABLET.DR 1 TAB PO DAILY HEART/BLOOD (Reported) Atorvastatin Calcium 20 MG TABLET 0.5 TAB PO DAILY CHOLESTEROL (Reported) Levothyroxine Sodium 25 MCG TABLET 2 TAB PO DAILY THYROID (Reported) Losartan Potassium 100 MG TABLET 1 TAB PO DAILY HEART (Reported) Magnesium Chloride (Slow-Mag) 71.5 MG TABLET.DR 64 MG PO BID Supplement . 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 FH: CVA (cerebrovascular accident) Psychosocial History Who Do You Live With? spouse Services at Home: None Primary Language: Luxembourgish Smoking Status: Former Smoker ETOH Use: denies use Functional Ability ADLs Independent: dressing, eating, toileting, bathing. Ambulation: independent IADLs Independent: shopping, housework, finances, food prep, telephone, transportation , medication admin. Review of Systems Review of Systems Constitutional: Reports: see HPI, fever, weakness. Denies: chills. EENTM: Reports: eye tearing, icterus. Cardiovascular: Denies: chest pain, edema, palpitations. Respiratory: Reports: cough, short of breath. Denies: hemoptysis, wheezing. GI: Reports: abdominal pain. Denies: diarrhea, melena. Genitourinary: Denies: dysuria, hematuria. Musculoskeletal: Denies: back pain. Skin: Reports: change in skin color, jaundice. Denies: change in hair/nails. Neurological/Psychological: Denies: cognitive dysfunction. Hematologic/Endocrine: Denies: bruising, bleeding. Exam & Diagnostic Data Last 24 Hrs of Vital Signs/I&O Vital Signs Date Time Temp Pulse Resp B/P B/P Pulse O2 O2 Flow FiO2 Mean Ox Delivery Rate 12/20 1933 98 Nasal 5.0L Cannula 12/20 193 98.4 111 24 144/71 98 Nasal 5.0L Cannula 12/20 1729 98.9 118 24 148/74 94 Nasal 4.0L Cannula 12/20 1540 96 Nasal 4.0L Cannula 12/20 1501 97.7 127 26 142/75 92 Nasal 4.0L Cannula 12/20 1451 95 Nasal 4.0L Cannula Intake & Output 12/20 1600 12/20 0800 12/20 0000 Intake Total Output Total Balance Patient 178 lb Weight Weight Reported by Patient Measurement Method Physical Exam General Appearance Alert, Oriented X3, Cooperative, Mild Distress Skin No Rashes, No Breakdown, No Significant Lesion Skin Temp/Moisture Exam: Warm/Dry Sepsis Skin Exam (color): Normal for Ethnicity HEENT Atraumatic, PERRLA, EOMI, Mucous Membr. moist/pink, conjunctival redness, no pain upon EOM Neck Supple, No JVD, No thryomegaly, +2 Carotid Pulse wo Bruit Lymphatic Axillary nl, Cervical nl Cardiovascular Regular Rate, Normal S1, Normal S2, No Murmurs, Gallops, Rubs Lungs decreased air entry bilaterally Abdomen Normal Bowel Sounds, Soft, No Tenderness, No Hepatospenomegaly Neurological Normal Speech, Strength at 5/5 X4 Ext, Normal Tone, Sensation Intact, Cranial Nerves 3-12 NL, Reflexes 2+, gait not tested. , mild facial droop on the right, which is chronic Extremities No Clubbing, No Cyanosis, No Edema, Normal Pulses, No Tenderness/ Swelling Vascular Normal Pulses, Pulses Symmetrical Sepsis Peripheral Pulse Location: Dorsalis Pedis Sepsis Peripheral Pulse Exam: Normal Sepsis Cap Refill Exam: <2 Sec Body Front and Back (Adult) 1) left conjunctival erythema Last 24 Hrs of Labs/Parminder: Laboratory Tests 12/20/172007: Lactic Acid Cancelled 12/20/17 2007: Lactic Acid 3.9 H 12/20/17 1545: Anion Gap 20 H, Estimated GFR 51 L, BUN/Creatinine Ratio 14.3, Glucose 206 H, Lactic Acid 5.7 H, Calcium 9.2, Magnesium 1.2 L, Total Bilirubin 5.6 H, Direct Bilirubin 1.2 H, AST 43, ALT 39, Alkaline Phosphatase 128 H, Troponin I < 0.01, Tik-W-Eoaowlwzcgs Pept 313 H, Total Protein 7.6, Albumin 4.3, Globulin 3.3, Albumin/Globulin Ratio 1.3, TSH 1.310, Free T4 1.24, PT 13.5 H, INR 1.24 H, APTT 31, D-Dimer High Sensitivty 457 H, CBC w Diff MAN DIFF ORDERED, RBC 4.77, MCV 88.3, MCH 29.7, MCHC 33.6, RDW 14.4, MPV 8.2, Gran % 90.5 H, Lymphocytes % 2.6 L, Monocytes % 6.8, Eosinophils % 0, Basophils % 0.1, Absolute Granulocytes 18.5 H, Segmented Neutrophils 87 H, Band Neutrophils 4, Absolute Lymphocytes 0.5 L, Lymphocytes 4 L, Monocytes 5, Absolute Monocytes 1.4 H, Absolute Eosinophils 0, Absolute Basophils 0, Platelet Estimate VERIFIED BY SMEAR, Normocytic RBCs VERIFIED, Normochromic RBCs VERIFIED, Fld Total RBCs Counted 100 12/20/17 1530: pH 7.51 H, pCO2 16 L, pO2 67 L, HCO3 12 L, ABG O2 Sat (Measured) 94.0 L, Carboxyhemoglobin 1.2 L, O2 Concentration % 4L, O2 Delivery Method NC, Phlebotomy Draw Site LEFT RADIAL Microbiology 12/20 1828 LOWER RESP: Respiratory Culture - ORD 12/20 1828 LOWER RESP: Gram Stain - ORD 12/20 1704 BLOOD: Blood Culture - RECD 12/20 8642 BLOOD: Blood Culture - RECD Diagnostic Data EKG Results NSR LAD, LAFB No STTWI Assessment/Plan Assessment: Mr Walden is a 67-year-old gentleman with PMHx of CAD s/p angioplasty(no stents ), 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 At the time of admission, Vitals- temperature 97.7, pulse rate 127, respiration 26, blood pressure 142/75, pulse ox 92% on 4 L. He was found to have pulse ox 80s at the time of arrival, which imprved to 94-96% after receiving supplemental oxygen. Pertinent lab findings- WBC 20.5 (90.5% granulocytosis) Hemoglobin 14.2, platelet count 253. Sodium 133, Chloride 97, bicarbonate 15, anion gap is 20. BUN 20, creatinine 1.4 (his baseline 1.0), glucose 206, lactic acid 5.7-->2.4 Magnesium 1.2 Total bilirubin 5.6, direct bilirubin 1.2. INR 1.24 AST 43, ALT 39, alkaline phosphatase 128. Troponin I-0.01, proBNP 313. D-dimer 457. ABG pH 7.51, PCO2 16, PO2 67. EKG reveals- NSR, LAD, LAFB, No STTWI. Chest x-ray revealed emphysematous changes of lungs. CTA chest, abdomen w/ contrast- 1. No evidence of pulmonary embolism. 2. Emphysematous changes of lung. 3. Patchy left lower lobe infiltrate. 4. No acute abnormality of the abdomen or pelvis. There is mild splenomegaly. Problem list: 1. Community acquired pneumonia, acute hypoxic respiratory failure. 2. h/o ? AAT def ( no clear e/o genotype or phenotype done) 3. Sepsis 4. h/o diabetes 5. h/o hypothyroidism 6. Abnormal liver chemistries 7. Respiratory alkalosis, with anion gap and non-anion gap metabolic acidosis. 8. Hypomagnesemia 9. Chronic kidney disease. Etiology of his presentation is likely due to community-acquired pneumonia, most likely from usual organisms such as strep pneumo, and atypicals. Given history of alpha antitrypsin deficiency, would also keep pseudomonas infection in differentials. He has been ruled out for PE. In regards to his abnormal liver enzymes, could be due to worsening liver disease secondary to alpha trypsin deficiency. He did not undergo any pathological diagnosis of liver cirrhosis at this time. He also has acute respiratory alkalosis with both anion and non- anion gap metabolic acidosis secondary to lactic acidosis. Lactic acidosis, is likely from severe sepsis. The last enzyme check was s/o AAT ~ 28 mg/dl, which is acceptable for an enzymatic deficiency of AAT, but would quantification, and genotyping given heterozygosity of this mutation. Since, this was manifested late in his age, I suspect smoking played a major role in his progression of his disease process. He would need a follow up with boom crane operator for rehab, and GI follow up to check serial liver chemistries to make sure that the disease is not progressing rapidly. While he was in the ED, vitals remained stable. He was given an empiric abx coverage for a possible diagnosis of cholangitis with Unasyn. Plan: 1. Admit the pt to telemetry given tachycardia, vitals q2hr till BP is more stable, then change to qshift. If the pt is persistenly hypotensive after fluid boluses, he should be monitored in the ICU, and discuss the need for pressors. For now, fluid boluses w/ upto 2-3 liters of NS. Change to NS at 100ml/hr once the BP is more stable. DC fluids after the BP is more stable. Monitor for any fluid overload, since we dont have any recent echocardiogram. As of now, there is no e/o fluid overload. Defer the decision to get echo pending fluid resuscitation, as there is no clear indication at this time. Check PFTs as an outpatient. 2. For the treatment of pneumonia, he should be treated with ceftriaxone and azithromycin pending culture results. Check LRC, blood cultures, and strep/ legionella urinary ag. Broaden the abx coverage, if pt doesnt improve in the next 12-24 hrs. 3. Supplemental oxygen as required, taper as tolerated. Pulm consult, if needed. 4. TRC, with beta agonists and anticholinergics. No steroids indicated at this time, as the pt clearly has emphysema. Guafenasin as needed. 5. For lactic acidosis, which should be trended, which is just a prognostic sign for now at this time; as it is already trending down. 6. Check LFTs in the a.m. If they continue to be abnormal, would check right upper quadrant ultrasound. Pt likely has cirrhosis, but doesnt have any abnormal contour on CT abdomen. Check RUQ US, to make sure that there is no cholestasis/ CBD dil, or liver masses. Dont suspect any acute pathology at this time. Would defer the decsion to check hep panel. Although, keep cholangitis in differential also. Check LDH, and haptoglobulin. 7. Magnesium replenishment. Check urinary magnesium to calculate FeMg, which would help decide the choice of Mg replenishment. 10. Recheck VBG in the am, to make sure that the acid-base abnormality is corrected. 11. Accuchecks, and Novolog sliding scale. Check HbA1c, given high blood glucose. Hold metformin for now. Housekeeping: #1 DVT prophylaxis-subcutaneous heparin. #2 code status-DNR/DNI. Discussed w/ the pt and his . #3 Med rec- done. Confirmed the meds. Consults- Pulmonary, Dr. Yung. As Ranked By This Provider Problem List: 1. Respiratory failure 2. Pneumonia Core Measures/Misc (05/02) Acute Coronary Syndrome ACS Diagnosis: No Congestive Heart Failure Congestive Heart Failure Diagnosis No Cerebrovascular Accident CVA/TIA Diagnosis: No VTE (View Protocol) VTE Risk Factors No risk factors No Mechanical VTE Prophylaxis d/t N/A MechProphylax Ordered No VTE Pharm Prophylaxis d/t NA PharmProphylax ordered Sepsis (View protocol) Sepsis Present: Yes Lenka Briceno 12/21/17 0701: Attending MD Review Statement Attending Statement Attending MD Statement: examined this patient, discuss w/resident/PA/SIGNING AGENT, agreed w/resident/PA/SIGNING AGENT, discussed with family, reviewed EMR data (avail), reviewed images, amended to note Attending Assessment/Plan: CC: Shortness of breath PMH: CVA with residual R sided weakness, HTN, HLD, hypothyroidism, DM, 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 Symptoms were getting progressively worse, denies any chest pain, palpitation, chest tightness, orthopnea, PND, pedal edema, urinary frequency or irritation. He has grandchildren who are always sick with some of the other illness. He slipped from, would and fell on the ground hitting his back but denies any pain or trauma, no loss of consciousness or head strike. Patient's noted that he appeared more yellow since last 1 week. Vitals: Temperature 98.9, pulse 124, RR 26, blood pressure 142/75, saturating 95 % on 4 L nasal cannula On exam: A O 3, cooperative, no acute distress, neck supple, JVD normal, no lymphadenopathy, mucosa moist, no focal neurological deficit, Left eye redness, acquired coloboma, s/p cataract surgery : ? lens dislocation, no dependent edema , no obvious skin rashes or inflammation CVS: S1-S2, RRR. RS: Markedly decreased breath sounds bilaterally, no obvious crackles or Rales. Abdomen: Soft, NT, ND, bowel sounds present. CTA chest, CT abdomen pelvis with IV contrast: 1. No evidence of pulmonary embolism. 2. Emphysematous changes of lung. 3. Patchy left lower lobe infiltrate. 4. No acute abnormality of the abdomen or pelvis. There is mild splenomegaly. Assessment and plan 67-year-old male with above-mentioned extensive past medical history presented in ER for productive cough, shortness of breath, fever. He had a markedly diminished air entry bilaterally, and was requiring 4 L nasal cannula to saturate around 94-96%. He was found to have significant leukocytosis with left shift and respiratory alkalosis with metabolic acidosis, elevated anion gap, lactic acidosis. He has chronic kidney injury and creatinine appears at baseline but bilirubin appears to be elevated from his baseline, likely secondary to AAT deficiency. CTA chest confirmed pneumonia. Because of his persistent tachycardia he would benefit from telemetry observation. Low threshold to transfer ICU if blood pressure drops, oxygen demand increases. Patient and his does not want to many consultants/Drs. inpatient care. 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
[2017-12-20 23:38] VITALS: BP 118/72
[2017-12-21 04:00] VITALS: BP 108/70
[2017-12-21 05:26] LABS: ABSOLUTE BASOPHIL COUNT 0 /CUMM (0.0-0.2); ABSOLUTE EOSINOPHIL COUNT 0 /CUMM (0.0-0.7); ABSOLUTE GRANULOCYTE CT 7.7 /CUMM (1.4-6.5); ABSOLUTE LYMPH COUNT 0.8 /CUMM (1.2-3.4); ABSOLUTE MONOCYTE COUNT 0.9 /CUMM (0.10-0.60); BASOPHIL % 0 % (0.0-2.0); EOSINOPHIL % 0.2 % (0-5); GRANULOCYTE % 82.1 % (42.2-75.2); MEAN CORPUSCULAR HGB 29.9 PG (27.0-31.0); MEAN CORPUSCULAR HGB CONC 33.6 G/DL (33.0-37.0); MEAN CORPUSCULAR VOLUME 88.9 FL (80.0-94.0); MEAN PLATELET VOLUME 7.9 FL (7.4-10.4); PLATELET COUNT 152 /CUMM (130-400); RBC DISTRIBUTION WIDTH 14.8 % (11.5-14.5); RED BLOOD CELL CT 3.69 /CUMM (4.70-6.10)
[2017-12-21 05:39] LABS: HEMATOCRIT 32.8 % (42-52); WHITE BLOOD CELL COUNT 9.4 /CUMM (4.8-10.8)
[2017-12-21 06:09] VITALS: BP 102/56
--- NOTE | 2017-12-21 07:02 | Admission Certification ---
Admission Certification Certification Statement - As attending physician, I certify that at the time of - admission, based on clinical presentation, severity of - symptoms, need for further diagnostic testing and - therapeutic interventions, and risk of adverse outcomes - without in-hospital treatment, in my clinical assessment, - this patient requires an acute hospital stay for a minimum - of two nights or longer. I have also considered psychsocial - factors such as support system, advanced age, financial - issues, cognitive issues, and failed out-patient treatments, - past re-admission history, safety of patient, and lack of - compliance as applicable. Specific rationale supporting this admission is: Pneumonia
--- NOTE | 2017-12-21 07:56 | PN- Housestaff ---
See Addendum Subjective Follow-up For: community acquired pneumonia sepsis Tele-Events Since Last Visit: sinus rhythm HR 60s-90s overnight, no events sinus tachycardia on admission Subjective: patient is sleeping this morning productive cough on 5L oxygen afebrile Review of Systems Constitutional: Reports: see HPI. Objective Last 24 Hrs of Vital Signs/I&O Vital Signs Date Time Temp Pulse Resp B/P B/P Pulse O2 O2 Flow FiO2 Mean Ox Delivery Rate 12/21 0609 97.4 69 22 102/56 95 Nasal 5.0L Cannula 12/21 0400 98.1 72 22 108/70 94 Nasal 5.0L Cannula 12/21 0000 Nasal 5.0L Cannula 12/20 2338 97.2 94 20 118/72 95 Nasal Cannula 12/20 2312 Nasal 5.0L Cannula 12/20 2201 98.1 92 24 116/66 96 Nasal 5.0L Cannula 12/20 1934 98 Nasal 5.0L Cannula 12/20 1933 98.4 111 24 144/71 98 Nasal 5.0L Cannula 12/20 1729 98.9 118 24 148/74 94 Nasal 4.0L Cannula 12/20 1540 96 Nasal 4.0L Cannula 12/20 1501 97.7 127 26 142/75 92 Nasal 4.0L Cannula 12/20 1451 95 Nasal 4.0L Cannula Intake & Output 12/21 1600 12/21 0800 05/ 0000 Intake Total 720 3240 Output Total 275 300 Balance 445 2940 Intake, IV 700 3000 Intake, Oral 20 240 Number 0 Bowel Movements Output, Urine 275 300 Patient 82.299 kg Weight Weight Bed scale Measurement Method Physical Exam General Appearance: Alert, Oriented X3, Cooperative, No Acute Distress HEENT: Atraumatic, PERRLA, EOMI, Mucous Membr. moist/pink, left pupil dilated, left eye pain reported, left eye sclera inflamed Cardiovascular: Regular Rate, Normal S1, Normal S2, No Murmurs Lungs: scattered rhonchi, diminished bibasilarly Abdomen: Normal Bowel Sounds, Soft, No Tenderness, No Masses Neurological: R hemiplegia Extremities: No Clubbing, No Cyanosis, No Edema, Normal Pulses Current Medications: Current Medications Sig/Kristen Start time Last Medication Dose Route Stop Time Status Admin Albuterol Sulfate 3 ML ONCE ONE 12/20 1530 DC 05/07 INH 12/20 1531 1540 Ampicillin Sodium/ 0 .STK-MED ONE 12/20 1947 DC Sulbactam Sodium .ROUTE Ampicillin Sodium/ 1,500 MG ONCE ONE 12/20 1830 DC 12/20 Sulbactam Sodium IV 12/20 1859 1948 Sodium Chloride 100 ML Ampicillin Sodium/ 0 .STK-MED ONE 12/20 1709 DC Sulbactam Sodium .ROUTE Ampicillin Sodium/ 1,500 MG ONCE ONE 12/20 1645 DC 12/20 Sulbactam Sodium IV 12/20 1714 1709 Sodium Chloride 100 ML Aspirin Buffered 325 MG DAILY 12/21 0900 AC PO Atorvastatin Calcium 10 MG DAILY 12/21 09 DC PO Atorvastatin Calcium 10 MG DAILY 12/21 899 CAN PO Atropine Sulfate 1 GTT Q12 12/21 09 UNVr OPH Atropine Sulfate 1 GTT Q6 12/21 0841 DC OPH Azithromycin 500 MG DAILY 12/20 2115 AC 12/20 Sodium Chloride 250 ML IV 2146 Ceftriaxone Sodium 1,000 MG 0000 12/21 0000 AC 12/21 IV 0131 Cyclopentolate HCl 1 GTT Q6 12/21 0819 DC OPH Guaifenesin 600 MG ONCE ONE 12/20 1830 DC 12/20 PO 12/20 1831 1850 Heparin Sodium 5,000 UNIT Q8 12/20 2200 AC 12/21 (Porcine) SC 0611 Insulin Aspart 0 TIDAC 12/21 0800 AC SC Ipratropium [place] 2.5 ML ONCE ONE 12/20 1530 DC 12/20 INH 12/20 1531 1540 Levothyroxine Sodium 0.05 MG DAILY AC 12/21 0700 AC 12/21 PO 0611 Magnesium Chloride 64 MG BID 12/21 0900 AC PO Magnesium Sulfate 1 GM Q2H 12/20 2045 DC 12/20 Dextrose/Water 100 ML IV 12/21 0044 2357 Metoprolol Tartrate 12.5 MG BID 12/21 0905 UNVr PO Ofloxacin 1 GTT Q6 12/21 0820 AC OPH Prednisolone 1 GTT Q6 12/21 0817 DC OPH Sodium Chloride 1,000 ML BOLUS ONE 12/20 2145 DC 05 IV 12/20 2344 2146 Sodium Chloride 1,000 ML ONCE ONE 12/20 2030 AC 05/07 IV 12/21 0949 2146 Sodium Chloride 1,000 ML BOLUS ONE 12/20 1830 DC 12/20 IV 12/20 1929 1750 Sodium Chloride 1,000 ML BOLUS ONE 12/20 1630 DC / IV 12/20 1729 1645 Sodium Chloride 1,000 ML BOLUS ONE 12/20 1630 DC / IV 12/20 1729 1650 Last 24 Hrs of Lab/Parminder Results Last 24 Hrs of Labs/Mics: Laboratory Tests 12/21/17 0504: Anion Gap 12, Estimated GFR > 60, BUN/Creatinine Ratio 12.7, Lactic Acid 1.9, Magnesium 1.6, Total Bilirubin 3.3 H, Direct Bilirubin 0.6 H, AST 24, ALT 30, Alkaline Phosphatase 88, Total Protein 5.6 L, Albumin 2.9 L, CBC w Diff NO MAN DIFF REQ, RBC 3.69 L, MCV 88.9, MCH 29.9, MCHC 33.6, RDW 14.8 H, MPV 7.9, Gran % 82.1 H, Lymphocytes % 8.2 L, Monocytes % 9.5 H, Eosinophils % 0.2, Basophils % 0, Absolute Granulocytes 7.7 H, Absolute Lymphocytes 0.8 L, Absolute Monocytes 0.9 H, Absolute Eosinophils 0, Absolute Basophils 0 12/21/17 0255: Lactic Acid Cancelled 12/21/17 0200: Lactic Acid 2.5 H 12/21/17 0130: Lactic Acid Cancelled 12/20/17 2320: Lactic Acid 2.4 H 12/20/17 2008: Lactic Acid Cancelled 12/20/17 2007: Lactic Acid 3.9 H 12/20/17 1627: PT Cancelled, INR Cancelled, APTT Cancelled 12/20/17 1545: Anion Gap 20 H, Estimated GFR 51 L, BUN/Creatinine Ratio 14.3, Glucose 206 H, Lactic Acid 5.7 H, Calcium 9.2, Magnesium 1.2 L, Total Bilirubin 5.6 H, Direct Bilirubin 1.2 H, AST 43, ALT 39, Alkaline Phosphatase 128 H, Troponin I < 0.01, Nin-S-Ynlovqmtbmx Pept 313 H, Total Protein 7.6, Albumin 4.3, Globulin 3.3, Albumin/Globulin Ratio 1.3, TSH 1.310, Free T4 1.24, PT 13.5 H, INR 1.24 H, APTT 31, D-Dimer High Sensitivty 457 H, CBC w Diff MAN DIFF ORDERED, RBC 4.77, MCV 88.3, MCH 29.7, MCHC 33.6, RDW 14.4, MPV 8.2, Gran % 90.5 H, Lymphocytes % 2.6 L, Monocytes % 6.8, Eosinophils % 0, Basophils % 0.1, Absolute Granulocytes 18.5 H, Segmented Neutrophils 87 H, Band Neutrophils 4, Absolute Lymphocytes 0.5 L, Lymphocytes 4 L, Monocytes 5, Absolute Monocytes 1.4 H, Absolute Eosinophils 0, Absolute Basophils 0, Platelet Estimate VERIFIED BY SMEAR, Normocytic RBCs VERIFIED, Normochromic RBCs VERIFIED, Fld Total RBCs Counted 100 12/20/17 1530: pH 7.51 H, pCO2 16 L, pO2 67 L, HCO3 12 L, ABG O2 Sat (Measured) 94.0 L, Carboxyhemoglobin 1.2 L, O2 Concentration % 4L, O2 Delivery Method NC, Phlebotomy Draw Site LEFT RADIAL Microbiology 12/20 2318 URINE ROUT: Streptococcus pneumoniae Antigen (M - CAN Cancelled: MERGED 12/20 2318 URINE ROUT: Legionella Antigen - CAN Cancelled: MERGED 12/20 1828 LOWER RESP: Respiratory Culture - COLB 12/20 1828 LOWER RESP: Gram Stain - COLB 12/20 1704 BLOOD: Blood Culture - RECD 12/20 165 BLOOD: Blood Culture - RECD Assessment/Plan Assessment: 67 year old male with past medical history significant for CAD s/p coronary angioplasty, CVA with residual right hemiplegia (2012, L MCA), diabetes mellitus , hypothyroidism, hyperlipidemia, hypomagnesemia, alpha 1 antitrypsin deficiency never followed up with Dr. Landers reportedly presented with complaints of lethargy, cough, dyspnea, and probable fever worsening for the past week. Of note he also had a recent left eye cataract surgery with post operative complications with another procedure four days prior to admission performed by a retinal specialist. Severe sepsis-community acquired pneumonia with acute hypoxemic respiratory failure: Tachycardia, leukocytosis, tachypnea/hypoxia, lactic acidemia, ERIKA Left lower lobe infiltrate on CT Chest Consider aspiration pneumonia given history of CVA Afebrile Given Unasyn, Ceftriaxone, and Azithromycin Tachycardia and lactic acidemia resolved with crystalloid resuscitation x 4L Leukocytosis improved on this morning CBC, 20.5 -> 9.4 Continue antibiotics (Azithro/Ceftriaxone) and maintenance fluids, NS @ [facility] evaluation Underlying emphysema from alpha 1 antitrypsin deficiency Strong family history of alpha 1 antitrypsin deficiency, former smoker Pulmonology consultation with Dr. 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 ERIKA: resolved with intravascular volume resuscitation Creatinine 1.4, now 1.1 Trend renal function ARB on hold, plan to resume tomorrow History of CAD/CVA: Continue aspirin, statin Restart metoprolol at half home dose Hold ARB for now, will resume as blood pressure improves 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 Respiratory failure 2. Pneumonia 3. Krgnv-7-acihwaxtdaq deficiency 4. Severe sepsis Pain Ratin Pain Location: n/a Pain Goal: Pain 4 or less Pain Plan: prn Tomorrow's Labs & Rationales: cbc, bep, mag, lft
[2017-12-21 10:46] VITALS: BP 122/80
[2017-12-21 11:00] VITALS: BP 122/80
--- NOTE | 2017-12-21 11:45 | ULTRASOUND REPORT ---
EXAMINATION: US ABDOMEN LIMITED CLINICAL INFORMATION: Elevated indirect bilirubin. COMPARISON: Same day CT chest, abdomen and pelvis, renal ultrasound 01/26/2017 and abdominal ultrasound 01/25/2017 TECHNIQUE: Real-time imaging of the right upper quadrant abdominal viscera. FINDINGS: PANCREAS: Visualized portions of pancreas are normal in appearance. LIVER: Normal. The liver demonstrates normal size, contour and echogenicity. No focal lesion or intrahepatic biliary duct dilatation. GALLBLADDER: Surgically absent COMMON BILE DUCT: Normal in caliber measuring 0.5 cm in diameter. RIGHT KIDNEY: Normal. No hydronephrosis. No renal calculi or focal parenchymal lesions. The kidney measures 11.3 cm in maximum dimension. FREE FLUID: None. IMPRESSION: Unremarkable sonographic imaging of the right upper quadrant.
[2017-12-21 14:35] VITALS: BP 118/74
--- NOTE | 2017-12-21 19:26 | Cons- Pulmonary ---
General Information and HPI Consulting Request Date of Consult: 12/21/17 Requested By: Med team History of Present Illness: Mr Walden is a 67-year-old gentleman with PMHx of CAD s/p angioplasty(no stents ), CVA with residual right-sided weakness ( dx'ed 2012, left MCA ), type 2 diabetes, hypothyroidism, hyperlipidemia, hypomagnesemia, ? AAT deficiency ( dx' ed 2012 and related spontaneous pneumothorax, but never had phenotype or genotype eval done), recent admission to [facility] in 01/2017 for prostatitis, came to the hospital with a chief concern of dyspnea 3-4 days. He was known to be in is usual state of health until one week ago. As per the , he appeared more jaundiced than usual. In the last 3-4 days, he started developing productive cough, but unable to know the color of the phlegm, which apprently is getting progressively worse. Also reported fever in the last two days, and recorded temp of 99.0. He also had worseing dyspnea that started with dyspnea upon ambulation to go the bathroom which progressed to dyspnea at rest. Reported inability to lie flat now. No PND. No chest pain, or palpitations; reported sick contacts. Reported decreased po intake in the last few days, and has been feeling more lethargic and weak in the last few days. He also had two episodes of vomiting x 1 day ago, and one episode on the day of presentation; after which he sat on the commode and slipped and fell on the ground. Did not have any reported injuries to be back, hip or head. He was on the floor for approximately 30' before any help arrived. Reported no LOC, seizures, or loss of bladder or bowel function. No edison, brbpr, no blood in vomitus. No recent hospital admissions. He was supposed to follow up with Dr. 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 Gonzalez, Opthalmologist for cataract surgery and reported some complication from the procedure, and history wasnt very clear. Past smoker 50 pk yr smoking history, quit 5 yrs ago; FHx significant for AAT def in brother who is . He is ambulatory at baseline, and slightly weak on the right side but did not have any significant weakness. Allergies/Medications Allergies: Coded Allergies: Sulfa (Sulfonamide Antibiotics) (Intermediate, SWEATY 01/08/16) adhesive tape (Intermediate, EATS MY SKIN 01/08/16) latex (RASH 01/08/16) Home Med List: Aspirin (Ecotrin*) 325 MG TABLET.DR 1 TAB PO DAILY HEART/BLOOD (Reported) Atorvastatin Calcium 20 MG TABLET 0.5 TAB PO DAILY CHOLESTEROL (Reported) Levothyroxine Sodium 25 MCG TABLET 2 TAB PO DAILY THYROID (Reported) Losartan Potassium 100 MG TABLET 1 TAB PO DAILY HEART (Reported) Magnesium Chloride (Slow-Mag) 71.5 MG TABLET.DR 64 MG PO BID Supplement . Metformin HCl (Metformin HCl ER) 500 MG TAB.ER.24H 2 TAB PO BID DIABETES ( Reported) Review of Systems Comments Constitutional: Reports: see HPI, fever, weakness. Denies: chills. EENTM: Reports: eye tearing, icterus. Cardiovascular: Denies: chest pain, edema, palpitations. Respiratory: Reports: cough, short of breath. Denies: hemoptysis, wheezing. GI: Reports: abdominal pain. Denies: diarrhea, melena. Genitourinary: Denies: dysuria, hematuria. Musculoskeletal: Denies: back pain. Skin: Reports: change in skin color, jaundice. Denies: change in hair/nails. Neurological/Psychological: Denies: cognitive dysfunction. Hematologic/Endocrine: Denies: bruising, bleeding. Past History Travel History Traveled to [place] past 21 day No Medical History Blood Transfusion Hx: No Neurological: CVA EENT: cataracts Cardiovascular: CAD, hyperlipidemia Respiratory: spontaneous pneumothorax lung disease related to alpha-1 antitrypsin deficiency Renal: prostatitis Endocrine: diabetes, hypothyroidism RN SECURITY/Reproductive: vasectomy Other Medical Hx: alpha-1 antitrypsin deficiency Surgical History Surgical History: cholecystectomy Family History Relations & Conditions If Any: SISTER FH: leukemia MOTHER FH: CVA (cerebrovascular accident) FH: hypertension BROTHER FH: alpha 1 antitrypsin deficiency FH: COPD (chronic obstructive pulmonary disease) BROTHER FH: CAD (coronary artery disease) FH: NE (myocardial infarction) FATHER, ; Cause: CVA (cerebral vascular accident). FH: CVA (cerebrovascular accident) Psychosocial History Who Do You Live With? spouse Services at Home: None Primary Language: Swedish Smoking Status: Former Smoker ETOH Use: denies use Functional Ability ADLs Independent: dressing, eating, toileting, bathing. Ambulation: independent IADLs Independent: shopping, housework, finances, food prep, telephone, transportation , medication admin. Exam & Diagnostic Data Last 24 Hrs of Vital Signs/I&O Vital Signs Date Time Temp Pulse Resp B/P B/P Pulse O2 O2 Flow FiO2 Mean Ox Delivery Rate 12/21 1626 94 Nasal 4.0L Cannula 12/21 1600 94 Nasal 4.0L Cannula 12/21 1435 98.6 72 19 118/74 94 Nasal 4.0L Cannula 12/21 1144 83 122/80 08 1109 Nasal 4.0L Cannula 12/21 1100 81 122/80 12/21 1046 71 122/80 12/21 0800 95 Nasal 4.0L Cannula 12/21 0609 97.4 69 22 102/56 95 Nasal 5.0L Cannula 12/21 0400 98.1 72 22 108/70 94 Nasal 5.0L Cannula 12/21 0000 Nasal 5.0L Cannula 12/20 2338 97.2 94 20 118/72 95 Nasal Cannula 12/20 2312 Nasal 5.0L Cannula 12/20 2201 98.1 92 24 116/66 96 Nasal 5.0L Cannula 12/20 1934 98 Nasal 5.0L Cannula 12/20 1933 98.4 111 24 144/71 98 Nasal 5.0L Cannula Intake & Output 12/21 1600 08 0800 05/08 0000 Intake Total 340 426 4539 Output Total 425 275 300 Balance 458 419 2153 Intake, IV 397 140 3834 Intake, Oral 360 20 240 Number 0 Bowel Movements Output, Urine 425 275 300 Patient 181 lb Weight Weight Bed scale Measurement Method Last 48 Hrs of Labs/Parminder: Laboratory Tests 12/21/17 0504: Anion Gap 12, Estimated GFR > 60, BUN/Creatinine Ratio 12.7, Lactic Acid 1.9, Magnesium 1.6, Total Bilirubin 3.3 H, Direct Bilirubin 0.6 H, AST 24, ALT 30, Alkaline Phosphatase 88, Total Protein 5.6 L, Albumin 2.9 L, CBC w Diff NO MAN DIFF REQ, RBC 3.69 L, MCV 88.9, MCH 29.9, MCHC 33.6, RDW 14.8 H, MPV 7.9, Gran % 82.1 H, Lymphocytes % 8.2 L, Monocytes % 9.5 H, Eosinophils % 0.2, Basophils % 0, Absolute Granulocytes 7.7 H, Absolute Lymphocytes 0.8 L, Absolute Monocytes 0.9 H, Absolute Eosinophils 0, Absolute Basophils 0 12/21/17 0255: Lactic Acid Cancelled 12/21/17 0200: Lactic Acid 2.5 H 12/21/17 0130: Lactic Acid Cancelled 12/20/17 2320: Lactic Acid 2.4 H 12/20/172007: Lactic Acid Cancelled 12/20/172006: Lactic Acid 3.9 H 12/20/17 1627: PT Cancelled, INR Cancelled, APTT Cancelled 12/20/17 1545: Anion Gap 20 H, Estimated GFR 51 L, BUN/Creatinine Ratio 14.3, Glucose 206 H, Lactic Acid 5.7 H, Calcium 9.2, Magnesium 1.2 L, Total Bilirubin 5.6 H, Direct Bilirubin 1.2 H, AST 43, ALT 39, Alkaline Phosphatase 128 H, Troponin I < 0.01, Pvx-Z-Mlczjmerigi Pept 313 H, Total Protein 7.6, Albumin 4.3, Globulin 3.3, Albumin/Globulin Ratio 1.3, TSH 1.310, Free T4 1.24, PT 13.5 H, INR 1.24 H, APTT 31, D-Dimer High Sensitivty 457 H, CBC w Diff MAN DIFF ORDERED, RBC 4.77, MCV 88.3, MCH 29.7, MCHC 33.6, RDW 14.4, MPV 8.2, Gran % 90.5 H, Lymphocytes % 2.6 L, Monocytes % 6.8, Eosinophils % 0, Basophils % 0.1, Absolute Granulocytes 18.5 H, Segmented Neutrophils 87 H, Band Neutrophils 4, Absolute Lymphocytes 0.5 L, Lymphocytes 4 L, Monocytes 5, Absolute Monocytes 1.4 H, Absolute Eosinophils 0, Absolute Basophils 0, Platelet Estimate VERIFIED BY SMEAR, Normocytic RBCs VERIFIED, Normochromic RBCs VERIFIED, Fld Total RBCs Counted 100 12/20/17 1530: pH 7.51 H, pCO2 16 L, pO2 67 L, HCO3 12 L, ABG O2 Sat (Measured) 94.0 L, Carboxyhemoglobin 1.2 L, O2 Concentration % 4L, O2 Delivery Method NC, Phlebotomy Draw Site LEFT RADIAL 12/20/17 0616: Urine Color YEL, Urine Clarity CLEAR, Urine pH 6.0, Ur Specific [place] 1.015, Urine Protein NEG, Urine Ketones 15 H, Urine Nitrite NEG, Urine Bilirubin NEG, Urine Urobilinogen 0.2, Ur Leukocyte Esterase NEG, Ur Microscopic SEDIMENT EXAMINED, Urine RBC 1-3, Urine Mucus FEW, Urine Hemoglobin TRACE-LYSED H, Urine Glucose NEG Microbiology 12/21 615 URINE ROUT: Legionella Antigen - COMP 12/21 615 URINE ROUT: Streptococcus pneumoniae Antigen (M - COMP Assessment/Plan Impression/Plan: General Appearance Alert, Oriented X3, Cooperative, Mild Distress Skin No Rashes, No Breakdown, No Significant Lesion Skin Temp/Moisture Exam: Warm/Dry Sepsis Skin Exam (color): Normal for Ethnicity HEENT Atraumatic, PERRLA, EOMI, Mucous Membr. moist/pink, conjunctival redness, no pain upon EOM Neck Supple, No JVD, No thryomegaly, +2 Carotid Pulse wo Bruit Lymphatic Axillary nl, Cervical nl Cardiovascular Regular Rate, Normal S1, Normal S2, No Murmurs, Gallops, Rubs Lungs decreased air entry bilaterally Abdomen Normal Bowel Sounds, Soft, No Tenderness, No Hepatospenomegaly Neurological Normal Speech, Strength at 5/5 X4 Ext, Normal Tone, Sensation Intact, Cranial Nerves 3-12 NL, Reflexes 2+, gait not tested. , mild facial droop on the right, which is chronic Extremities No Clubbing, No Cyanosis, No Edema, Normal Pulses, No Tenderness/ Swelling Vascular Normal Pulses, Pulses Symmetrical SIGNIFICANT DATA CT SCAN OF THE CHEST REVIEWED CT scan did show severe emphysema, no pulmonary embolism, left lower lobe infiltrate, mild splenomegaly. Blood work reviewed creatinine down to 1.1 anion gap is 12, total bilirubin has been elevated to 5.6 now down to 3.3. Patient does have hyperbilirubinemia in the past White count now 9.4 down from 20,000 hemoglobin 11 INR was 1.24 ABG from yesterday reviewed patient appeared to be significantly alkalotic Baseline bicarbonate at home has been normal No significant hypercarbia Remote echocardiogram showed normal ejection fraction trace tricuspid regurg previous pulmonary function test did show mild obstructive lung disease previous CT scan of the chest showed no malignancy but severe emphysema Previous alpha-1 antitrypsin level was 28 IMPRESSION This is a gentleman with severe emphysema mainly related to cigarette smoking with previous history of alpha-1 antitrypsin deficiency, previous reported history of heterozygous gene mutation for alpha-1 antitrypsin gene mutation, previous stroke, recurrent evidence suggestive of cholestasis with no significant cirrhosis with preserved synthetic function of the liver now has * Left lower lobe infiltrate suggestive of community-acquired pneumonia. Patient does have history of stroke however no clinical evidence suggestive of aspiration pneumonia. I did do a cursory bedside swallow and he did not have any evidence suggestive of aspiration. * He does have alpha-1 antitrypsin deficiency. By report is heterozygous for gene mutation. We will need to get old records. Patient has not had any previous replacement therapy and had declined replacement therapy in the remote past * Previous history of stroke with mild residual deficit with no evidence suggestive of aspiration * Severe emphysema with no significant bronchospasm * Initial lactic acid upon admission disease seems to be improving * Cholestasis with no clinical evidence suggestive of cirrhosis. This is probably related to his underlying pneumonia and he may have a component of Gilbert's disease * Hypertension, hyperlipidemia, hypothyroidism, diabetes which appears to be stable * Previous stroke, coronary artery disease which appears to be stable at this time RECOMMENDATION Continue his current antibiotic therapy As needed nebulizer Okay to continue his metoprolol low dose Consider reducing his aspirin to 81 mg Continue current antibiotics No clinical indication for steroid therapy Follow his bilirubin Try to obtain sputum culture Feed well up right Patient appears to be euvolemic and in the future we will consider gentle hydration if he is not taking enough fluids We'll get old records Consult Acknowledgment - Thank you for your consult request.
[2017-12-21 23:16] VITALS: BP 154/94
[2017-12-22 07:02] VITALS: BP 146/70
[2017-12-22 08:06] LABS: ABSOLUTE BASOPHIL COUNT 0 /CUMM (0.0-0.2); ABSOLUTE EOSINOPHIL COUNT 0.1 /CUMM (0.0-0.7); ABSOLUTE GRANULOCYTE CT 4.3 /CUMM (1.4-6.5); ABSOLUTE LYMPH COUNT 0.6 /CUMM (1.2-3.4); ABSOLUTE MONOCYTE COUNT 0.5 /CUMM (0.10-0.60); BASOPHIL % 0.2 % (0.0-2.0); EOSINOPHIL % 0.9 % (0-5); GRANULOCYTE % 78.4 % (42.2-75.2); HEMATOCRIT 34.2 % (42-52); MEAN CORPUSCULAR HGB 29.6 PG (27.0-31.0); MEAN CORPUSCULAR HGB CONC 33.1 G/DL (33.0-37.0); MEAN CORPUSCULAR VOLUME 89.7 FL (80.0-94.0); MEAN PLATELET VOLUME 8.5 FL (7.4-10.4); PLATELET COUNT 145 /CUMM (130-400); RBC DISTRIBUTION WIDTH 14.6 % (11.5-14.5); RED BLOOD CELL CT 3.82 /CUMM (4.70-6.10); WHITE BLOOD CELL COUNT 5.4 /CUMM (4.8-10.8)
--- NOTE | 2017-12-22 08:09 | PN- Housestaff ---
See Addendum Subjective Follow-up For: sepsis community acquired pneumonia Tele-Events Since Last Visit: sinus rhythm, no events Subjective: feeling much better, persistent cough but minimal expectoration afebrile remains on supplemental oxygen Review of Systems Constitutional: Reports: see HPI. Objective Last 24 Hrs of Vital Signs/I&O Vital Signs Date Time Temp Pulse Resp B/P B/P Pulse O2 O2 Flow FiO2 Mean Ox Delivery Rate 12/23 0750 146/70 12/22 0828 93 Nasal 4.0L Cannula 12/22 0702 97.5 70 20 146/70 95 Nasal Cannula 12/22 0000 97 Nasal 4.0L Cannula 12/21 2316 97.9 84 20 154/94 97 Nasal 4.0L Cannula 12/21 2205 84 154/94 12/21 1626 94 Nasal 4.0L Cannula 12/21 1600 94 Nasal 4.0L Cannula 12/21 1435 98.6 72 19 118/74 94 Nasal 4.0L Cannula 12/21 1144 83 122/80 12/21 1109 Nasal 4.0L Cannula 12/21 1100 81 122/80 12/21 1046 71 122/80 Intake & Output 12/22 1600 12/22 0800 12/22 0000 Intake Total 440 400 Output Total 250 400 Balance 190 0 Intake, Oral 440 400 Output, Urine 250 400 Patient 81.335 kg Weight Physical Exam General Appearance: Alert, Oriented X3, Cooperative, No Acute Distress Cardiovascular: Regular Rate, Normal S1, Normal S2, No Murmurs Lungs: diminished air movement Abdomen: Normal Bowel Sounds, Soft, No Tenderness, No Masses Extremities: No Clubbing, No Cyanosis, No Edema, Normal Pulses Current Medications: Current Medications Sig/Kristen Start time Last Medication Dose Route Stop Time Status Admin Albuterol Sulfate 3 ML EVERY 4 HRS/AWAKE 12/21 1200 AC 12/22 INH 0818 Aspirin Buffered 325 MG DAILY 12/21 899 AC 12/22 PO 0850 Atropine Sulfate 1 GTT Q12 12/21 899 AC 12/22 OPH 0855 Azithromycin 500 MG DAILY 12/20 2115 AC 12/22 Sodium Chloride 250 ML IV 0851 Ceftriaxone Sodium 1,000 MG 0000 12/21 0000 AC 12/21 IV 2329 Heparin Sodium 5,000 UNIT Q8 12/20 2200 AC 12/22 (Porcine) SC 0612 Insulin Aspart 0 TIDAC 12/22 799 AC 12/21 SC 1841 Ipratropium [place] 2.5 ML EVERY 4 HRS/AWAKE 12/21 1200 AC 12/22 INH 0818 Levothyroxine Sodium 0.05 MG DAILY AC 12/21 0700 AC 12/22 PO 0612 Magnesium Chloride 64 MG BID 12/21 899 AC 12/22 PO 0850 Metoprolol Tartrate 12.5 MG BID 12/21 09 AC 12/22 PO 0850 Ofloxacin 1 GTT Q6 12/22 819 12/22 OPH 0612 Patient Medication 1 ED ONE ONE 12/21 1745 DC Teaching ED 12/21 174 Sodium Chloride 1,000 ML ONCE ONE 12/20 2030 DC 12/20 IV 12/21 0949 2146 Last 24 Hrs of Lab/Parminder Results Last 24 Hrs of Labs/Mics: Laboratory Tests 12/22/17 0630: Anion Gap 12, Estimated GFR > 60, BUN/Creatinine Ratio 13.0, Magnesium 1.6, Total Bilirubin 1.6 H, Direct Bilirubin 0.5 H, AST 34, ALT 37, Alkaline Phosphatase 130 H, Total Protein 5.9 L, Albumin 3.0 L, CBC w Diff NO MAN DIFF REQ, RBC 3.82 L, MCV 89.7, MCH 29.6, MCHC 33.1, RDW 14.6 H, MPV 8.5, Gran % 78.4 H, Lymphocytes % 10.6 L, Monocytes % 9.9 H, Eosinophils % 0.9, Basophils % 0.2, Absolute Granulocytes 4.3, Absolute Lymphocytes 0.6 L, Absolute Monocytes 0.5, Absolute Eosinophils 0.1, Absolute Basophils 0 Assessment/Plan Assessment: 67 year old male with past medical history significant for CAD s/p coronary angioplasty, CVA with residual right hemiplegia (2012, L MCA), diabetes mellitus , hypothyroidism, hyperlipidemia, hypomagnesemia, alpha 1 antitrypsin deficiency never followed up with Dr. Landers reportedly presented with complaints of lethargy, cough, dyspnea, and probable fever worsening for the past week. Of note he also had a recent left eye cataract surgery with post operative complications with another procedure four days prior to admission performed by a retinal specialist. Severe sepsis-community acquired pneumonia with acute hypoxemic respiratory failure: Tachycardia, leukocytosis, tachypnea/hypoxia, lactic acidemia, ERIKA Left lower lobe infiltrate on CT Chest Consider aspiration pneumonia given history of CVA Afebrile Tachycardia and lactic acidemia resolved with crystalloid resuscitation x 4L Leukocytosis improved on this morning CBC, 20.5 -> 9.4 Continue antibiotics (Azithro/Ceftriaxone) TRC evaluation Underlying emphysema from alpha 1 antitrypsin deficiency Strong family history of alpha 1 antitrypsin deficiency, former smoker Pulmonology consultation with Dr. 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 ERIKA: resolved with intravascular volume resuscitation Creatinine 1.4 on presentation, now 1.0 Trend renal function Restart losartan at half home dose, 50mg daily History of CAD/CVA: Continue aspirin, statin Increased metoprolol to home dose and restarted ARB Hyperbilirubinemia: Chronic both direct and indirect bilirubinemia, improved with IV hydration Outpatient GI follow up Abdominal ultrasound were negative for biliary pathology DM: Metformin held Accuchecks TIDAC, 130-170 Novolog insulin sliding scale Hypothyroidism: Continue synthroid 50mcg TSH/T4 wnl Diabetic diet DVT ppx-heparin 5000 units q8h DNR/DNI Problem List: 1. Respiratory failure 2. Pneumonia 3. Eqmxa-[id number]-hxcnrmeinea deficiency Pain Ratin Pain Location: n/a Pain Goal: Pain 4 or less Pain Plan: prn Tomorrow's Labs & Rationales: none none
--- NOTE | 2017-12-22 13:40 | PN- Pulmonary ---
Subjective HPI/Critical Care Issues: sinus rhythm, no events Subjective: feeling much better, persistent cough but minimal expectoration afebrile remains on supplemental oxygen Review of Systems Constitutional: Reports: see HPI. Objective Current Medications: Current Medications Sig/Kristen Start time Last Medication Dose Route Stop Time Status Admin Albuterol Sulfate 3 ML EVERY 4 HRS/AWAKE 12/21 1200 AC 12/22 INH 0818 Aspirin Buffered 325 MG DAILY 12/21 899 AC 12/22 PO 0850 Atropine Sulfate 1 GTT Q12 12/21 899 AC 12/22 OPH 0855 Azithromycin 500 MG DAILY 12/20 211 AC 12/22 Sodium Chloride 250 ML IV 0851 Ceftriaxone Sodium 1,000 MG 0000 12/21 0000 AC 12/21 IV 2329 Heparin Sodium 5,000 UNIT Q8 12/20 2199 AC 12/22 (Porcine) SC 1259 Insulin Aspart 0 TIDAC 12/22 799 AC 12/22 SC 1207 Ipratropium [place] 2.5 ML EVERY 4 HRS/AWAKE 12/21 1200 AC 12/22 INH 0818 Levothyroxine Sodium 0.05 MG DAILY AC 12/21 07 AC 12/22 PO 0612 Losartan Potassium 50 MG DAILY 12/22 916 AC 12/22 PO 1124 Magnesium Chloride 64 MG BID 12/21 899 AC 12/22 PO 0850 Magnesium Oxide 400 MG ONE ONE 12/22 914 DC 12/22 PO 12/22 0916 1124 Metoprolol Tartrate 25 MG BID 12/22 2100 AC PO Metoprolol Tartrate 12.5 MG BID 12/21 09 DC 12/22 PO 0850 Ofloxacin 1 GTT Q6 12/22 819 AC 12/22 OPH 1203 Patient Medication 1 ED ONE ONE 12/21 1745 DC Teaching ED 12/21 1746 Vital Signs & I&O Last 24 Hrs of Vitals and I&O: Vital Signs Date Time Temp Pulse Resp B/P B/P Pulse O2 O2 Flow FiO2 Mean Ox Delivery Rate 12/22 1124 136/76 12/23 0750 146/70 12/23 827 93 Nasal 4.0L Cannula 12/23 799 93 Nasal 4.0L Cannula 12/22 701 97.5 70 20 146/70 95 Nasal Cannula 12/22 0000 97 Nasal 4.0L Cannula 12/21 2316 97.9 84 20 154/94 97 Nasal 4.0L Cannula 12/21 2205 84 154/94 12/21 1626 94 Nasal 4.0L Cannula 12/21 1600 94 Nasal 4.0L Cannula 12/21 1435 98.6 72 19 118/74 94 Nasal 4.0L Cannula Intake & Output 12/22 0800 05 0000 Intake Total 440 400 Output Total 250 400 Balance 190 0 Intake, Oral 440 400 Output, Urine 250 400 Patient 179 lb Weight Laboratory Tests 12/22 12/21 0630 0504 Chemistry Sodium (137 - 145 mmol/L) 135 L 135 L Potassium (3.5 - 5.1 mmol/L) 4.4 4.0 Chloride (98 - 107 mmol/L) 102 105 Carbon Dioxide (22 - 30 mmol/L) 21 L 18 L Anion Gap (5 - 16) 12 12 BUN (9 - 20 mg/dL) 13 14 Creatinine (0.7 - 1.2 mg/dL) 1.0 1.1 Estimated GFR (>60 ml/min) > 60 > 60 BUN/Creatinine Ratio (7 - 25 %) 13.0 12.7 Lactic Acid (0.7 - 2.1 mmol/L) 1.9 Magnesium (1.6 - 2.3 mg/dL) 1.6 1.6 Total Bilirubin (0.2 - 1.3 mg/dL) 1.6 H 3.3 H Direct Bilirubin (< 0.4 mg/dL) 0.5 H 0.6 H AST (17 - 59 U/L) 34 24 ALT (21 - 72 U/L) 37 30 Alkaline Phosphatase (< 127 U/L) 130 H 88 Total Protein (6.3 - 8.2 g/dL) 5.9 L 5.6 L Albumin (3.5 - 5.0 g/dL) 3.0 L 2.9 L Hematology CBC w Diff NO MAN DIFF REQ NO MAN DIFF REQ WBC (4.8 - 10.8 /CUMM) 5.4 9.4 RBC (4.70 - 6.10 /CUMM) 3.82 L 3.69 L Hgb (14.0 - 18.0 G/DL) 11.3 L 11.0 L Hct (42 - 52 %) 34.2 L 32.8 L MCV (80.0 - 94.0 FL) 89.7 88.9 MCH (27.0 - 31.0 PG) 29.6 29.9 MCHC (33.0 - 37.0 G/DL) 33.1 33.6 RDW (11.5 - 14.5 %) 14.6 H 14.8 H Plt Count (130 - 400 /CUMM) 145 152 MPV (7.4 - 10.4 FL) 8.5 7.9 Gran % (42.2 - 75.2 %) 78.4 H 82.1 H Lymphocytes % (20.5 - 51.1 %) 10.6 L 8.2 L Monocytes % (1.7 - 9.3 %) 9.9 H 9.5 H Eosinophils % (0 - 5 %) 0.9 0.2 Basophils % (0.0 - 2.0 %) 0.2 0 Absolute Granulocytes (1.4 - 6.5 /CUMM) 4.3 7.7 H Absolute Lymphocytes (1.2 - 3.4 /CUMM) 0.6 L 0.8 L Absolute Monocytes (0.10 - 0.60 /CUMM) 0.5 0.9 H Absolute Eosinophils (0.0 - 0.7 /CUMM) 0.1 0 Absolute Basophils (0.0 - 0.2 /CUMM) 0 0 12/21 12/21 12/21 12/20 12/20 0255 0200 0130 2320 2007 Chemistry Lactic Acid (0.7 - 2.1 mmol/L) Cancelled 2.5 H Cancelled 2.4 H Cancelled 12/20 1627 1545 Chemistry Sodium (137 - 145 mmol/L) 133 L Potassium (3.5 - 5.1 mmol/L) 4.4 Chloride (98 - 107 mmol/L) 97 L Carbon Dioxide (22 - 30 mmol/L) 15 L Anion Gap (5 - 16) 20 H BUN (9 - 20 mg/dL) 20 Creatinine (0.7 - 1.2 mg/dL) 1.4 H Estimated GFR (>60 ml/min) 51 L BUN/Creatinine Ratio (7 - 25 %) 14.3 Glucose (65 - 99 mg/dL) 206 H Lactic Acid (0.7 - 2.1 mmol/L) 3.9 H 5.7 H Calcium (8.4 - 10.2 mg/dL) 9.2 Magnesium (1.6 - 2.3 mg/dL) 1.2 L Total Bilirubin (0.2 - 1.3 mg/dL) 5.6 H Direct Bilirubin (< 0.4 mg/dL) 1.2 H AST (17 - 59 U/L) 43 ALT (21 - 72 U/L) 39 Alkaline Phosphatase (< 127 U/L) 128 H Troponin I (<0.11 ng/ml) < 0.01 [id number]-Nohwygixial Pept (<125 pg/mL) 313 H Total Protein (6.3 - 8.2 g/dL) 7.6 Albumin (3.5 - 5.0 g/dL) 4.3 Globulin (1.9 - 4.2 gm/dL) 3.3 Albumin/Globulin Ratio (1.1 - 2.2 %) 1.3 TSH (0.270 - 4.200 uIU/mL) 1.310 Free T4 (0.78 - 2.44 ng/dL) 1.24 Coagulation PT (9.4 - 12.5 SEC) Cancelled 13.5 H INR (0.90 - 1.17) Cancelled 1.24 H APTT (25 - 37 SEC) Cancelled 31 D-Dimer High Sensitivty (0 - 243 ng/ml) 457 H Hematology CBC w Diff MAN DIFF ORDERED WBC (4.8 - 10.8 /CUMM) 20.5 H RBC (4.70 - 6.10 /CUMM) 4.77 Hgb (14.0 - 18.0 G/DL) 14.2 Hct (42 - 52 %) 42.1 MCV (80.0 - 94.0 FL) 88.3 MCH (27.0 - 31.0 PG) 29.7 MCHC (33.0 - 37.0 G/DL) 33.6 RDW (11.5 - 14.5 %) 14.4 Plt Count (130 - 400 /CUMM) 253 MPV (7.4 - 10.4 FL) 8.2 Gran % (42.2 - 75.2 %) 90.5 H Lymphocytes % (20.5 - 51.1 %) 2.6 L Monocytes % (1.7 - 9.3 %) 6.8 Eosinophils % (0 - 5 %) 0 Basophils % (0.0 - 2.0 %) 0.1 Absolute Granulocytes (1.4 - 6.5 /CUMM) 18.5 H Segmented Neutrophils (42.2 - 75.2 %) 87 H Band Neutrophils (0.0 - 5.0 %) 4 Absolute Lymphocytes (1.2 - 3.4 /CUMM) 0.5 L Lymphocytes (20.5 - 51.1 %) 4 L Monocytes (1.7 - 9.3 %) 5 Absolute Monocytes (0.10 - 0.60 /CUMM) 1.4 H Absolute Eosinophils (0.0 - 0.7 /CUMM) 0 Absolute Basophils (0.0 - 0.2 /CUMM) 0 Platelet Estimate (ADEQUATE) VERIFIED BY SMEAR Normocytic RBCs VERIFIED Normochromic RBCs VERIFIED Other Body Source Fld Total RBCs Counted (%) 100 12/20 1530 Blood Gas pH (7.35 - 7.45 PH) 7.51 H pCO2 (35 - 45 TORR) 16 L pO2 (80 - 100 TORR) 67 L HCO3 (21 - 28 MEQ/L) 12 L ABG O2 Sat (Measured) (>96.0 %) 94.0 L Carboxyhemoglobin (1.5 - 5.0 %) 1.2 L O2 Concentration % 4L O2 Delivery Method NC Miscellaneous Phlebotomy Draw Site LEFT RADIAL Microbiology Date/Time Procedure - Status Source Growth 12/20 231 Streptococcus pneumoniae Antigen (M - CAN URINE ROUT Cancelled: MERGED 12/20 231 Legionella Antigen - CAN URINE ROUT Cancelled: MERGED 12/20 182 Respiratory Culture - CAN LOWER RESP Cancelled: 12/20 182 Gram Stain - CAN LOWER RESP Cancelled: 12/20 1704 Blood Culture - RES BLOOD 12/20 1655 Blood Culture - RES BLOOD 12/20 0616 Legionella Antigen - COMP URINE ROUT 12/20 0616 Streptococcus pneumoniae Antigen (M - COMP URINE ROUT Impression/Plan Impression/Plan Impression/Plan: General Appearance Alert, Oriented X3, Cooperative, Mild Distress Skin No Rashes, No Breakdown, No Significant Lesion Skin Temp/Moisture Exam: Warm/Dry Sepsis Skin Exam (color): Normal for Ethnicity HEENT Atraumatic, PERRLA, EOMI, Mucous Membr. moist/pink, conjunctival redness, no pain upon EOM Neck Supple, No JVD, No thryomegaly, +2 Carotid Pulse wo Bruit Lymphatic Axillary nl, Cervical nl Cardiovascular Regular Rate, Normal S1, Normal S2, No Murmurs, Gallops, Rubs Lungs decreased air entry bilaterally Abdomen Normal Bowel Sounds, Soft, No Tenderness, No Hepatospenomegaly Neurological Normal Speech, Strength at 5/5 X4 Ext, Normal Tone, Sensation Intact, Cranial Nerves 3-12 NL, Reflexes 2+, gait not tested. , mild facial droop on the right, which is chronic Extremities No Clubbing, No Cyanosis, No Edema, Normal Pulses, No Tenderness/ Swelling Vascular Normal Pulses, Pulses Symmetrical SIGNIFICANT DATA CT SCAN OF THE CHEST REVIEWED CT scan did show severe emphysema, no pulmonary embolism, left lower lobe infiltrate, mild splenomegaly. Remote echocardiogram showed normal ejection fraction trace tricuspid regurg previous pulmonary function test did show mild obstructive lung disease previous CT scan of the chest showed no malignancy but severe emphysema Previous alpha-1 antitrypsin level was 28 IMPRESSION This is a gentleman with severe emphysema mainly related to cigarette smoking with previous history of alpha-1 antitrypsin deficiency, previous reported history of heterozygous gene mutation for alpha-1 antitrypsin gene mutation, previous stroke, recurrent evidence suggestive of cholestasis with no significant cirrhosis with preserved synthetic function of the liver now has * Left lower lobe infiltrate suggestive of community-acquired pneumonia. Clinically improving. Patient does have history of stroke however no clinical evidence suggestive of aspiration pneumonia. I did do a cursory bedside swallow and he did not have any evidence suggestive of aspiration. * He does have alpha-1 antitrypsin deficiency. By report is heterozygous for gene mutation. We will need to get old records. 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 This is probably related to his underlying pneumonia and he may have a component of Gilbert's disease * Hypertension, hyperlipidemia, hypothyroidism, diabetes which appears to be stable * Previous stroke, coronary artery disease which appears to be stable at this time RECOMMENDATION Continue his current antibiotic therapy As needed nebulizer Okay to continue his metoprolol low dose Consider reducing his aspirin to 81 mg Continue current antibiotics No clinical indication for steroid therapy Try to obtain sputum culture Feed well up right We'll get old records COnt iv abx for now Rpt cxr in am
[2017-12-22 13:47] VITALS: BP 130/72
[2017-12-22 23:20] VITALS: BP 132/82
[2017-12-23 06:38] VITALS: BP 160/96
--- NOTE | 2017-12-23 07:15 | PN- Housestaff ---
Nik WILL,Mendez 12/23/17 0715: Subjective Follow-up For: severe sepsis from community acquired pneumonia alpha 1 antitrypsin deficiency Tele-Events Since Last Visit: sinus rhythm, no events Subjective: patient has had some nausea and vomiting after receiving ceftriaxone persistent cough, remains on 2L oxygen anxious to be discharged, doesn't like nebulized albuterol treatments afebrile on antibiotics, doesn't want steroids Review of Systems Constitutional: Reports: see HPI. Objective Last 24 Hrs of Vital Signs/I&O Vital Signs Date Time Temp Pulse Resp B/P B/P Pulse O2 O2 Flow FiO2 Mean Ox Delivery Rate 12/24 0732 92 Nasal 2.0L Cannula 12/23 0638 97.8 72 20 160/96 95 Nasal 2.0L Cannula 12/23 0000 94 Nasal 3.0L Cannula 12/22 2320 97.4 73 18 132/82 96 Nasal Cannula 12/22 2047 85 142/80 12/22 1610 97 Nasal 3.0L Cannula 12/22 1600 Nasal 3.0L Cannula 12/22 1347 97.9 70 18 130/72 96 Nasal 3.5L Cannula 12/22 1124 136/76 Intake & Output 12/23 1600 12/23 0800 12/23 0000 Intake Total 225 300 Output Total 500 375 Balance -275 -75 Intake, IV 25 Intake, Oral 200 300 Number 0 Bowel Movements Output, Urine 500 375 Patient 81.306 kg Weight Physical Exam General Appearance: Alert, Oriented X3, Cooperative, No Acute Distress Cardiovascular: Regular Rate, Normal S1, Normal S2, No Murmurs Lungs: diminished bibasilarly Abdomen: Normal Bowel Sounds, Soft, No Tenderness, No Masses Extremities: No Clubbing, No Cyanosis, No Edema, Normal Pulses Current Medications: Current Medications Sig/Kristen Start time Last Medication Dose Route Stop Time Status Admin Albuterol Sulfate 3 ML EVERY 4 HRS/AWAKE 12/21 1200 AC 12/23 INH 0832 Aspirin Buffered 325 MG DAILY 12/21 899 AC 12/22 PO 0850 Atropine Sulfate 1 GTT Q12 12/21 899 AC 12/22 OPH 2044 Azithromycin 500 MG DAILY 12/20 2114 AC 12/22 Sodium Chloride 250 ML IV 0851 Ceftriaxone Sodium 1,000 MG 0000 12/21 0000 DC 12/23 IV 0019 Heparin Sodium 5,000 UNIT Q8 12/20 2200 AC 12/23 (Porcine) SC 0633 Insulin Aspart 0 TIDAC 12/22 799 AC 12/23 SC 0802 Ipratropium [place] 2.5 ML EVERY 4 HRS/AWAKE 12/21 1200 AC 12/23 INH 0832 Levothyroxine Sodium 0.05 MG DAILY AC 12/21 0700 AC 12/23 PO 0632 Losartan Potassium 50 MG DAILY 12/22 916 AC 12/22 PO 1124 Magnesium Chloride 64 MG BID 12/21 899 AC 12/22 PO 2045 Magnesium Oxide 400 MG ONE ONE 12/22 914 DC 12/22 PO 12/22 09 1124 Metoprolol Tartrate 25 MG BID 12/22 2100 AC 12/22 PO 204 Metoprolol Tartrate 12.5 MG BID 12/21 904 DC 12/22 PO 0850 Ofloxacin 1 GTT Q6 12/22 819 AC 12/23 OPH 0632 Last 24 Hrs of Lab/Parminder Results Last 24 Hrs of Labs/Mics: Laboratory Tests 12/23/17614: Anion Gap 15, Estimated GFR > 60, BUN/Creatinine Ratio 13.0, Total Bilirubin 0.9 , Direct Bilirubin 0.2, AST 50, ALT 41, Alkaline Phosphatase 160 H, Total Protein 6.1 L, Albumin 3.0 L Assessment/Plan Assessment: 67 year old male with past medical history significant for CAD s/p coronary angioplasty, CVA with residual right hemiplegia (2012, L MCA), diabetes mellitus , hypothyroidism, hyperlipidemia, hypomagnesemia, alpha 1 antitrypsin deficiency never followed up with Dr. Landers reportedly presented with complaints of lethargy, cough, dyspnea, and probable fever worsening for the past week. Of note he also had a recent left eye cataract surgery with post operative complications with another procedure four days prior to admission performed by a retinal specialist. Severe sepsis-community acquired pneumonia with acute hypoxemic respiratory failure: Tachycardia, leukocytosis, tachypnea/hypoxia, lactic acidemia, ERIKA Left lower lobe infiltrate on CT Chest No evidence of aspiration Afebrile Tachycardia and lactic acidemia resolved with crystalloid resuscitation x 4L Leukocytosis improved on this morning CBC, 20.5 -> 9.4 Continue Azithromycin, ceftriaxone discontinued for adverse effect (N/V) TRC evaluation Underlying emphysema from alpha 1 antitrypsin deficiency Pulmonology consultation with Dr. Landers, appreciate recommendations Legionella and strep pneumo antigens negative Titrated off supplemental oxygen, 93% on room air at rest Check ambulatory oxygen saturation prior to discharge to assess need for supplemental O2 Mixed acid basis disorder Acute respiratory alkalosis with high anion gap metabolic acidosis and probably metabolic alkalosis (contraction/vomiting, H+ loss): ABG 7.51/16/67/12, AG 20 on presentation bicarbonate 15 Improving with treatment of underlying infection, resolution of lactic acidemia , IVFs Recent cataract surgery: Continue steroid, antibiotic and dilating eye gtts 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 ERIKA: resolved with intravascular volume resuscitation Creatinine 1.4 on presentation, now 1.0 Trend renal function Restart losartan at half home dose, 50mg daily, can give another 50mg if hypertensive History of CAD/CVA: Continue aspirin, statin, beta tuan and ACEi Hyperbilirubinemia: Chronic both direct and indirect bilirubinemia, improved with IV hydration Outpatient GI follow up Abdominal ultrasound were negative for biliary pathology DM: Metformin held Accuchecks TIDAC, 160-205 Novolog insulin sliding scale Hypothyroidism: Continue synthroid 50mcg TSH/T4 wnl Diabetic diet DVT ppx-heparin 5000 units q8h DNR/DNI Problem List: 1. Respiratory failure 2. Pneumonia 3. Hseia-[id number] deficiency 4. Severe sepsis Pain Ratin Pain Location: n/a Pain Goal: Pain 4 or less Pain Plan: prn Tomorrow's Labs & Rationales: none Leigh Nolasco MD 12/23/17 1100: Attending MD Review Statement Attending Statement Attending MD Statement: examined this patient, discuss w/resident/PA/VETERINARY MICROBIOLOGIST, agreed w/resident/PA/VETERINARY MICROBIOLOGIST, reviewed EMR data (avail) Attending Assessment/Plan: 67M PMH CVA with residual R sided weakness, HTN, HLD, hypothyroidism, DM, Alpha 1 antitrypsin deficiency with secondary lung disease, history of cataract surgery with complications, CAD admitted for fever, cough, and jaundice, with workup revealing LLL pneumonia, elevated bilirubin levels. Patient feels a bit better today. His dyspnea is improving. Afebrile, stable vitals overnight, tachycardia resolved. Bili is improving. 1. Sepsis secondary to LLL pneumonia 2. Jaundice secondary to g-[id number]-vkptoecnntl deficiency and infection Plan - Stable for discharge - Continue Azithromycin - Continue home medications - Ambulatory saturation for oxygen
[2017-12-23] MEDS ORDERED: AZITHROMYCIN500 M3 PO ×2 (08:40→11:43)
--- NOTE | 2017-12-23 10:57 | RADIOLOGY REPORT ---
EXAMINATION: XR CHEST CLINICAL INFORMATION: Hypoxia. Cough. COMPARISON: Chest done on 12/20/2017. TECHNIQUE: 2 views of the chest were obtained. FINDINGS: Hyperinflated lung field is noted with superimposed nonspecific bibasilar (left greater than right) airspace disease. The remainder of the lung ledezma are clear. The cardiomediastinal silhouette is within normal limit. There is no pleural effusion present. The visualized upper abdomen is unremarkable. IMPRESSION: Nonspecific bibasilar airspace disease (left greater than right), may represent infiltrate, atelectasis, pleural parenchymal scar or a combination thereof.
--- NOTE | 2017-12-23 11:43 | Patient Discharge Instructions ---
Discharge Instructions General Discharge Information You were seen/treated for: pneumonia sepsis copd exacerbation Special Instructions: Please follow up with Dr. Landers for your lung disease and your primary care physician. you should also follow up with Dr. Karlie GRANT, for you elevated bilirubin. Acute Coronary Syndrome Inclusion Criteria At DC or during hospital stay patient has or had the following: ACS DIAGNOSIS No Discharge Core Measures Meds if any: Prescribed or Continued at Discharge Meds if any: NOT Prescribed or Continued at Discharge Congestive Heart Failure Inclusion Criteria At DC or during hospital stay patient has or had the following: CHF DIAGNOSIS No Discharge Core Measures Meds if any: Prescribed or Continued at Discharge Meds if any: NOT Prescribed or Continued at Discharge Cerebrovascular accident Inclusion Criteria At DC or during hospital stay patient has or had the following: CVA/TIA Diagnosis No Discharge Core Measures Meds if any: Prescribed or Continued at Discharge Meds if any: NOT Prescribed or Continued at Discharge Venous thromboembolism Inclusion Criteria VTE Diagnosis No VTE Type NONE VTE Confirmed by (Test) NONE Discharge Core Measures - Per Current guidelines, there needs to be overlap - treatment for the first 5 days of Warfarin therapy. - If discharged on Warfarin prior to 5 days of - overlap therapy, the patient will need to be - assessed for post discharge needs including - *Post discharge parental anticoagulation - *Warfarin and/or parental anticoagulation education - *Follow up date to check INR post discharge At least 5 days overlap therapy as Inpatient No Meds if any: Prescribed or Continued at Discharge Note: Overlap Therapy is Warfarin and Anticoagulant Meds if any: NOT Prescribed or Continued at Discharge
--- NOTE | 2017-12-23 11:47 | Discharge Summary ---
Visit Information Visit Dates Admission Date: 12/20/17 Hospital Course Course Attending Physician: Leigh Nolasco MD Primary Care Physician: Ghazala WILL,[facility] Course: 67 year old male with past medical history significant for CAD s/p coronary angioplasty, CVA with residual right hemiplegia (2013, L MCA), diabetes mellitus , hypothyroidism, hyperlipidemia, hypomagnesemia, alpha 1 antitrypsin deficiency never followed up with Dr. Landers reportedly presented with complaints of lethargy, cough, dyspnea, and probable fever worsening for the past week. Of note he also had a recent left eye cataract surgery with post operative complications with another procedure four days prior to admission performed by a retinal specialist. Severe sepsis-community acquired pneumonia with acute hypoxemic respiratory failure: Tachycardia, leukocytosis, tachypnea/hypoxia, lactic acidemia, ERIKA Left lower lobe infiltrate on CT Chest No evidence of aspiration Afebrile Tachycardia and lactic acidemia resolved with crystalloid resuscitation x 4L Leukocytosis improved on this morning CBC, 20.5 -> 9.4 Continue Azithromycin, ceftriaxone discontinued for adverse effect (N/V) TRC evaluation Underlying emphysema from alpha 1 antitrypsin deficiency Pulmonology consultation with Dr. Landers, appreciate recommendations Legionella and strep pneumo antigens negative Titrated off supplemental oxygen, 93% on room air at rest Check ambulatory oxygen saturation prior to discharge to assess need for supplemental O2 Mixed acid basis disorder Acute respiratory alkalosis with high anion gap metabolic acidosis and probably metabolic alkalosis (contraction/vomiting, H+ loss): ABG 7.51/16/67/12, AG 20 on presentation bicarbonate 15 Improving with treatment of underlying infection, resolution of lactic acidemia , IVFs Recent cataract surgery: Continue steroid, antibiotic and dilating eye gtts per patient's quality control microbiologist ERIKA: resolved with intravascular volume resuscitation Creatinine 1.4 on presentation, now 1.0 Trend renal function Restart losartan at half home dose, 50mg daily, can give another 50mg if hypertensive History of CAD/CVA: Continue aspirin, statin, beta tuan and ACEi Hyperbilirubinemia: Chronic both direct and indirect bilirubinemia, improved with IV hydration Outpatient GI follow up Abdominal ultrasound were negative for biliary pathology DM: Metformin held Accuchecks TIDAC, 160-205 Novolog insulin sliding scale Hypothyroidism: Continue synthroid 50mcg TSH/T4 wnl Allergies: Coded Allergies: Sulfa (Sulfonamide Antibiotics) (Intermediate, SWEATY 01/08/16) adhesive tape (Intermediate, EATS MY SKIN 01/08/16) latex (RASH 01/08/16) Discharge Instructions General Discharge Information Code Status: Do Not Resucitate/Intubat Patient's Diet: Diabetic diet Patient's Activity: As tolerated Medications at Discharge Discharge Medications: Continue taking these medications: Atorvastatin Calcium (Atorvastatin Calcium) 20 MG TABLET 0.5 Tablet ORAL DAILY Qty = 90 Comments: NOT GIVEN THIS ADMISSION Metformin HCl (Metformin HCl ER) 500 MG TAB.ER.24H 2 Tablet ORAL TWICE DAILY Qty = 180 Comments: NOT GIVEN IN HOSPITAL Losartan Potassium (Losartan Potassium) 100 MG TABLET 1 Tablet ORAL DAILY Qty = 90 Comments: Last Taken: 12/23/17 Time:8:57A.M Aspirin (Ecotrin*) 325 MG TABLET. 1 Tablet ORAL DAILY Comments: Last Taken: 12/23/17 Time: 8:57A.M Levothyroxine Sodium (Levothyroxine Sodium) 25 MCG TABLET 2 Tablet ORAL DAILY Qty = 30 Comments: Last Taken: 12/23/17 Time: 6:32A.M Magnesium Chloride (Slow-Mag) 71.5 MG TABLET. 64 Milligram ORAL TWICE DAILY Qty = 60 Instructions: . Comments: Last Taken: 12/23/17 Time: 8:57A.M Start taking the following new medications: Azithromycin (Azithromycin) 500 MG TABLET 1 Tablet ORAL DAILY Qty = 3 No Refills Instructions: . Comments: NOT STARTED IN HOSPITAL Copies To: Anshul WILL,Leandro Vivar MD,Aleyda Attending MD Review Statement Documenting Attending: Leigh Nolasco MD
--- NOTE | 2017-12-23 13:54 | PN- Pulmonary ---
Subjective HPI/Critical Care Issues: patient has had some nausea and vomiting after receiving ceftriaxone persistent cough, on room air anxious to be discharged, doesn't like nebulized albuterol treatments afebrile on antibiotics, doesn't want steroids Review of Systems Constitutional: Reports: see HPI. Objective Current Medications: Current Medications Sig/Kristen Start time Last Medication Dose Route Stop Time Status Admin Albuterol Sulfate 3 ML EVERY 4 HRS/AWAKE 12/21 1200 AC 12/23 INH 1201 Aspirin Buffered 325 MG DAILY 12/21 899 AC 12/23 PO 0857 Atropine Sulfate 1 GTT Q12 12/21 899 AC 12/23 OPH 0930 Azithromycin 500 MG DAILY 12/20 2115 AC 12/23 Sodium Chloride 250 ML IV 0900 Ceftriaxone Sodium 1,000 MG 0000 12/21 0000 DC 12/23 IV 0019 Heparin Sodium 5,000 UNIT Q8 12/20 2200 AC 12/23 (Porcine) SC 0633 Insulin Aspart 0 TIDAC 12/22 799 AC 12/23 SC 1138 Ipratropium Corona 2.5 ML EVERY 4 HRS/AWAKE 12/21 1200 AC 12/23 INH 1201 Levothyroxine Sodium 0.05 MG DAILY AC 12/21 0700 AC 12/23 PO 0632 Losartan Potassium 50 MG DAILY 12/22 0917 AC 12/23 PO 0857 Magnesium Chloride 64 MG BID 12/21 09 AC 12/23 PO 0857 Metoprolol Tartrate 25 MG BID 12/22 2100 AC 12/23 PO 0857 Ofloxacin 1 GTT Q6 12/21 0820 AC 12/23 OPH 1139 Vital Signs & I&O Last 24 Hrs of Vitals and I&O: Vital Signs Date Time Temp Pulse Resp B/P B/P Pulse O2 O2 Flow FiO2 Mean Ox Delivery Rate 12/23 0857 97.8 72 20 160/96 12/23 0857 97.8 72 20 160/96 12/23 0832 92 Nasal 2.0L Cannula 12/23 0800 95 Nasal 2.0L Cannula 12/23 0638 97.8 72 20 160/96 95 Nasal 2.0L Cannula 12/23 0000 94 Nasal 3.0L Cannula 12/22 2320 97.4 73 18 132/82 96 Nasal Cannula 12/22 2047 85 142/80 12/22 1610 97 Nasal 3.0L Cannula 12/22 1600 Nasal 3.0L Cannula Intake & Output 12/23 1600 12/23 0800 05 0000 Intake Total 225 300 Output Total 100 500 375 Balance -100 -275 -75 Intake, IV 25 Intake, Oral 200 300 Number 0 Bowel Movements Output, Urine 100 500 375 Patient 179 lb Weight Impression/Plan Impression/Plan Impression/Plan: General Appearance Alert, Oriented X3, Cooperative, Mild Distress Skin No Rashes, No Breakdown, No Significant Lesion Skin Temp/Moisture Exam: Warm/Dry Sepsis Skin Exam (color): Normal for Ethnicity HEENT Atraumatic, PERRLA, EOMI, Mucous Membr. moist/pink, conjunctival redness, no pain upon EOM Neck Supple, No JVD, No thryomegaly, +2 Carotid Pulse wo Bruit Lymphatic Axillary nl, Cervical nl Cardiovascular Regular Rate, Normal S1, Normal S2, No Murmurs, Gallops, Rubs Lungs decreased air entry bilaterally Abdomen Normal Bowel Sounds, Soft, No Tenderness, No Hepatospenomegaly Neurological Normal Speech, Strength at 5/5 X4 Ext, Normal Tone, Sensation Intact, Cranial Nerves 3-12 NL, Reflexes 2+, gait not tested. , mild facial droop on the right, which is chronic Extremities No Clubbing, No Cyanosis, No Edema, Normal Pulses, No Tenderness/ Swelling Vascular Normal Pulses, Pulses Symmetrical SIGNIFICANT DATA CT SCAN OF THE CHEST REVIEWED CT scan did show severe emphysema, no pulmonary embolism, left lower lobe infiltrate, mild splenomegaly. Remote echocardiogram showed normal ejection fraction trace tricuspid regurg previous pulmonary function test did show mild obstructive lung disease previous CT scan of the chest showed no malignancy but severe emphysema Previous alpha-1 antitrypsin level was 28 CXr IMPRESSION: Nonspecific bibasilar airspace disease (left greater than right), may represent infiltrate, atelectasis, pleural parenchymal scar or a combination thereof. DICTATED BY: Ana Tucker MD DATE/TIME DICTATED:12/23/178 IMPRESSION This is a gentleman with severe emphysema mainly related to cigarette smoking with previous history of alpha-1 antitrypsin deficiency, previous reported history of heterozygous gene mutation for alpha-1 antitrypsin gene mutation, previous stroke, recurrent evidence suggestive of cholestasis with no significant cirrhosis with preserved synthetic function of the liver now has * Left lower lobe infiltrate suggestive of community-acquired pneumonia. Clinically improving. Patient does have history of stroke however no clinical evidence suggestive of aspiration pneumonia. I did do a cursory bedside swallow and he did not have any evidence suggestive of aspiration. * He does have alpha-1 antitrypsin deficiency. By report is heterozygous for gene mutation. We will need to get old records. 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 This is probably related to his underlying pneumonia and he may have a component of Gilbert's disease * Hypertension, hyperlipidemia, hypothyroidism, diabetes which appears to be stable * Previous stroke, coronary artery disease which appears to be stable at this time RECOMMENDATION Continue his current antibiotic therapy PO abx total duration of seven days - ok with po [place] for 3 more days upon dc As needed nebulizer, needs a home neb machine to use prn Okay to continue his metoprolol low dose Ok to dc needs out pt follow up
[2017-12-23 14:22] VITALS: BP 138/82
== END 2017-12-23 16:35 | DRG 871 ==
LOC: ERH 14:44 → ERHI 18:27 → 1NO 18:27 → ENRESERV 19:25 → CANRESERV 19:25 → EDBEDREQTM 20:51 → EDBEDREQ 20:51 → ENRESERV 20:53 → ERHI 21:27 → ENTRNSPT 22:23 → EDTRNSPTSTS 22:33 → EDTRNSPT 22:33 → CMPTRNSPT 22:51 → 1NO 22:57 → ENPENDDIS 12-23 11:41 → 1NO 12-23 16:35
PROVIDERS: Internal Medicine Endocrinology, Diabetes & Metabolism; Physician Assistant
DX: A41.9 Sepsis, unspecified organism (principal); J18.9 Pneumonia, unspecified organism; J96.01 Acute respiratory failure with hypoxia; N17.9 Acute kidney failure, unspecified; E87.2 Acidosis; E87.3 Alkalosis; R17 Unspecified jaundice; E83.42 Hypomagnesemia; I69.351 Hemiplegia and hemiparesis following cerebral infarction affecting right dominant side; E87.4 Mixed disorder of acid-base balance; E88.01 Alpha-1-antitrypsin deficiency; I25.10 Atherosclerotic heart disease of native coronary artery without angina pectoris; Z95.1 Presence of aortocoronary bypass graft; E11.9 Type 2 diabetes mellitus without complications; Z79.84 Long term (current) use of oral hypoglycemic drugs; E03.9 Hypothyroidism, unspecified; Z88.2 Allergy status to sulfonamides; Z91.040 Latex allergy status; R00.0 Tachycardia, unspecified; Z66 Do not resuscitate; R65.20 Severe sepsis without septic shock
CPT/HCPCS: 1NSP; 36592; 71045; 71046; 74177; 81001; 82436; 87040; 87070; 87449; 87450; 93005; 93010; 96374; J0456; J0696; J1644; J7040; J7608